=== PATIENT | female | born 1940 | race Caucasian/White ===

== ENCOUNTER 2018-09-22 04:34 | Inpatient (IN) | payer MEDICARE, OTHER ==
[~2018-09-22] VITALS: Ht 162.6 cm; Wt 71.7 kg
[2018-09-22] VITALS (51 sets, daily range): BP systolic 104–175; BP diastolic 60–98
[2018-09-22] MEDS ORDERED: DILTIAZEM HCL 25 MG/5 ML VIAL IV ONE ×2 (05:00→15:00)
[2018-09-22] MEDS ORDERED: ONDANSETRON HCL 4 MG/2 ML VIAL IV ONE (05:15)
[2018-09-22 06:16] LABS: Basophils # (auto) 0.1 uL; Eosinophils # (auto) 0 uL; Lymphocytes # (auto) 0.9 uL; Monocytes # (auto) 0.5 uL; Monocytes % (auto) 7.8 % (0.0-12.0); Neutrophils # (auto) 5.3 uL; Nucleated Red Blood Cells % 0.1 %; White Blood Cell 6.8 10^3/uL (4.4-10.8)
[2018-09-22 06:20] LABS: Basophils % (auto) 0.9 % (0.0-2.0); Eosinophils % (auto) 0.2 % (0.0-7.0); Hematocrit 23.3 % (36.0-46.0); Lymphocytes % (auto) 13.5 % (10.0-50.0); Mean Corpuscular Hemoglobin 17.4 pg (28.0-32.0); Mean Corpuscular Hgb Conc. 28.2 g/dL (32.0-36.0); Mean Corpuscular Volume 61.5 fL (80.0-100.0); Neutrophils % (auto) 77.6 % (37.0-80.0); Platelet Count (auto) 186 10^3/uL (140-450); Red Blood Cells 3.78 10^6/uL (4.0-5.20)
[2018-09-22 06:27] LABS: INR 1.23 (0.9-1.15); Partial Thromboplastin Time 27.8 sec (23.64-32.05)
[2018-09-22 06:29] LABS: Alanine Aminotransferase 23 U/L (13-56); Albumin 3.5 g/dL (3.4-5.0); Anion Gap 12 (5-15); Aspartate Aminotransferase 13 U/L (15-37); BUN/Creatinine Ratio 22.1; Blood Urea Nitrogen 19 mg/dL (7-18); Calcium 8.4 mg/dL (8.5-10.1); Carbon Dioxide 21 mmol/L (21-32); Chloride 112 mmol/L (98-107); GFR African American 83 mL/min; GFR Non-African American 68 mL/min; Glucose 94 mg/dL (74-106); Potassium 4.5 mmol/L (3.5-5.1); Sodium 145 mmol/L (136-145)
[2018-09-22 06:33] LABS: Alkaline Phosphatase 149 U/L (45-117); Bilirubin, Total 0.7 mg/dL (0.2-1.0); Red Cell Distribution Width 22.1 % (11.8-14.3)
[2018-09-22 06:37] LABS: Hemoglobin 6.6 g/dL (12.2-16.2)
[2018-09-22] MEDS ORDERED: METOPROLOL TARTRATE 1MG/1ML-5ML VIAL IV ONE (07:45)
[2018-09-22] MEDS ORDERED: NITROGLYCERIN 0.4 MG SL TAB SL PRN (08:45)
[2018-09-22] MEDS ORDERED: ACETAMINOPHEN 500 MG TAB PO PRN (08:45)
[2018-09-22] MEDS ORDERED: HYDROcodone-ACET 5/325MG TAB PO PRN (08:45)
[2018-09-22] MEDS ORDERED: MORPHINE SULFATE 4 MG/ML SYR/VIAL IV PRN (08:45)
[2018-09-22] MEDS ORDERED: MORPHINE SULF INJ 2 MG/ML SYRINGE 1ML IV PRN (08:45)
[2018-09-22] MEDS ORDERED: TEMAZEPAM 15 MG CAP PO PRN (08:45)
[2018-09-22] MEDS ORDERED: PROMETHAZINE HCL 25 MG/ML 1ML IV PRN (08:45)
[2018-09-22] MEDS: cefTRIAXone 1GM/50ML D5W 50 ML IV SCH (09:00)
[2018-09-22] MEDS: DILTIAZEM 125mg/125ml BAG KIT 125 ML IV SCH ×2 (09:14→20:32)
[2018-09-22 09:22] LABS: Amylase 33 U/L (25-115); Lipase 127 U/L (73-393)
[2018-09-22 09:25] LABS: Urine Bacteria FEW /hpf (None Seen); Urine Blood Negative /uL (Negative); Urine Specific Gravity 1.017 (1.001-1.035); Urine WBC 27 /hpf (0 - 5)
[2018-09-22] MEDS ORDERED: AMIODARONE HCL 150 MG in D5W 5% 100 ML IV ONE (10:15)
[2018-09-22] MEDS ORDERED: AMIODARONE HCL 900 MG in DEXTROSE 500 ML IV SCH ×2 (10:24→16:24)
--- NOTE | 2018-09-22 10:36 | NUR ---
REPORT: REPORT RECEIVED FROM TELEVISION REPAIRMAN TAKING CARE OF PT. AWARE THAT PATIENT WILL BE MOVING TO ROOM 101 IN ICU.
--- NOTE | 2018-09-22 10:52 | NUR ---
ARRIVAL: PT ARRIVED TO ROOM 101 IN ICU AFTER RECEIVING REPORT FROM ER. PATIENT ARRIVED ON GURNEY, MOVED TO ICU BED, CONNECTED TO BEDSIDE MONITOR, VITAL SIGNS TAKEN AND ALL BELONGINGS WITH PATIENT. PATIENT IS ALERT AND ORIENTED X4, OBEYS COMMANDS, ABLE TO VERBALIZE UNDERSTANDING FOR PLAN OF CARE BUT IS REFUSING SOME MEDICATIONS, NOT FOLLOWING ALL ORDERS FROM MD, DETAILED EDUCATION GIVEN TO PATIENT BUT AT TIME, PATIENT WANTING TO LEAVE HOSPITAL AND "NOT WANTING TO STAY BECAUSE I DON'T NEED TO." EXPLAINED TO PATIENT IMPORTANCE FOR HOSPITALIZATION AT TIME, GAVE DETAILED EDUCATION IN REGARDS TO PLAN OF CARE, ALL MEDICATIONS THAT MD PLACED AND DESPITE ALL EDUCATION GIVEN, PATIENT WILL CHOOSE WHICH INTERVENTIONS SHE WOULD LIKE TO BE GIVEN. AT TIME, PATIENT IS ON ROOM AIR WITH A 20G IV TO RIGHT AC RUNNING CARDIAZEM AT 10MG/HR AND 20G IV TO LEFT AC-SL. ALL MONITORS HOOKED UP TO PT FOR CONTINUOUS MONITORING AND VITAL SIGNS IN STABLE RANGE AT TIME. PATIENT BELONGINGS WITH PT, CALL LIGHT IN REACH AND ORIENTED TO ROOM.
--- NOTE | 2018-09-22 11:30 | NUR ---
PAIN/COMFORT: PT STATING THAT SHE HAS PAIN IN HER BACK AND THAT IT IS CHRONIC BACK PAIN. PROVIDED OPTION FOR MORPHINE BUT PATIENT REFUSING MORPHINE AT TIME. PATIENT HAVING EPISODES OF NAUSEA AND OFFERED PHENERGAN BUT PATIENT REFUSING AT TIME. STATING THAT HER BACK HURTS AND "I CAN'T LAY IN THIS BED ANY LONGER." WILL ATTEMPT TO CHANGE BEDS PER PT REQUEST.
--- NOTE | 2018-09-22 12:00 | NUR ---
UPDATE: PT REFUSING TO GO TO CT PREVIOUSLY ORDERED. PATIENT REFUSING TO HAVE BLOOD PRESSURE TAKEN AND YELLING IN PAIN FOR HER BACK. FULLY EXPLAINED THAT I CAN INFORM MD THAT SHE IS HAVING PAIN AND POTENTIAL ORDERS CAN BE CARRIED OUT BUT PT STILL REFUSING. AT TIME, PT DOES NOT WANT PAIN MEDICATION OR CT SCAN.
--- NOTE | 2018-09-22 13:20 | NUR ---
BED CHANGE: PT STATING THAT SHE IS HAVING PAIN WHILE IN BED. MOVED PT TO NEW ICU BED FOR COMFORT.
--- NOTE | 2018-09-22 13:40 | NUR ---
JAYY-CARE/ELIMINATION: PROVIDED JAYY-CARE AND FULL LINEN CHANGE. PATIENT INCONTINENT OF URINE AND VOIDED IN BED. EXPLAINED TO PT THAT BEDPAN OR ALLRED CATHETER IS AVAILABLE BUT REFUSING BOTH AT TIME.
--- NOTE | 2018-09-22 13:53 | NUR ---
PAGE: DR. CHAN PAGED. WANTING TO CONFIRM IF MD WOULD LIKE CARDIAZEM OR AMIODARONE GTT AT TIME. WAITING FOR CALL BACK.
--- NOTE | 2018-09-22 13:56 | NUR ---
MD CALL BACK: DR. CHAN CALLED BACK. UPDATED ON PT STATUS AND NEW ORDERS RECEIVED. MD WOULD NOT LIKE PT TO BE ON AMIODARONE GTT AND ONLY CARDIAZEM GTT WITH AMIODARONE PO. WILL PLACE AND CARRY OUT ORDERS.
[2018-09-22 14:00] LABS: Hematocrit 24.8 % (36.0-46.0)
[2018-09-22] MEDS: metroNIDAZOLE 500MG/100ML 100 ML IV SCH ×2 (14:00→22:00)
[2018-09-22 14:03] LABS: Hemoglobin 6.7 g/dL (12.2-16.2)
--- NOTE | 2018-09-22 14:06 | NUR ---
LAB: LAB CALLED. RESULT OF HGB 6.7. ORDERS PLACED FOR BLOOD TRANSFUSION ALREADY.
--- NOTE | 2018-09-22 14:11 | NUR ---
FAMILY: DAUGHTER IN AT BEDSIDE. UPDATED ON PT STATUS AND ALL QUESTIONS AND CONCERNS ADDRESSED.
--- NOTE | 2018-09-22 15:00 | NUR ---
JAYY-CARE/LINEN CHANGE: PT REQUESTING BEDPAN FOR URINATION. PROVIDED BEDPAN AFTER PATIENT STATING THAT SHE NEEDS TO USE THE RESTROOM. PATIENT NOT LIFTING UP LEGS PATIENT STATING, "IT HURTS TOO BAD". PATIENT REFUSING TO TURN IN BED. AFTER DETAILED EDUCATION ON IMPORTANCE FOR BEDPAN OR ALLRED CATHETER IF PATIENT REFUSING BEDPAN, PATIENT THEN ABLE TO LIFT UP SACRUM AND BEDPAN PLACED.
--- NOTE | 2018-09-22 15:09 | NUR ---
BLOOD TRANSFUSION: STARTED BLOOD TRANSFUSION PER MD ORDERS.
[2018-09-22] MEDS: FUROSEMIDE 40 MG/4 ML VIAL IV SCH (15:14)
[2018-09-22] MEDS: METOPROLOL TARTRATE 25 MG TAB PO SCH ×2 (15:14→22:00)
[2018-09-22] MEDS: POTASSIUM CHL 20 Meq TABLET PO SCH (15:15)
[2018-09-22] MEDS: PANTOPRAZOLE 40 MG TAB PO SCH ×2 (15:15→21:45)
--- NOTE | 2018-09-22 16:00 | NUR ---
ALLRED CATHETER: ALLRED CATHETER INSERTED, SIZE 16F AFTER 1ST ATTEMPT USING STERILE TECHNIQUE. PATIENT REFUSING TO USE BEDPAN AND OK TO INSERT ALLRED CATHETER AFTER DETAILED EDUCATION.
--- NOTE | 2018-09-22 17:15 | NUR ---
PAIN: PATIENT PREVIOUSLY MEDICATED WITH MORPHINE FOR PAIN BUT STILL STATING THAT SHE HAS BACK PAIN. INFORMED DR. RUSHING OF "SEVERE PAIN IN BACK" AND OK TO TAKE PT TO CT OF SPINE AND PELVIS IF PATIENT DOES NOT REFUSE.
--- NOTE | 2018-09-22 17:35 | NUR ---
EDUCATION: PT EDUCATED ON IMPORTANCE FOR PAIN MANAGEMENT, OK TO TAKE MORPHINE NEEDED FOR PAIN AND THAT MD OK TO TAKE PT TO CT SCAN FOR PAIN EVALUATION IN BACK. AFTER DETAILED EDUCATION FROM MYSELF AND DAUGHTER, PATIENT NOW REQUESTING TO GO TO CT SCAN.
--- NOTE | 2018-09-22 17:45 | NUR ---
MD CONTACT: SPOKE TO DR. RUSHING AND OK FOR PT TO GO TO CT SCAN FOR BACK AND LEFT LEG PAIN. PT AWARE AND WILL CARRY OUT ORDERS.
--- NOTE | 2018-09-22 18:00 | NUR ---
CT: PT TAKEN TO CT SCAN PER ORDERS.
--- NOTE | 2018-09-22 18:24 | NUR ---
RETURN: PT RETURNED FROM CT SCAN IN STABLE CONDITION. PT TOLERATED WELL AND ABLE TO TOLERATE PROCEDURE WITHOUT DIFFICULTY.
--- NOTE | 2018-09-22 18:49 | NUR ---
NUTRITION: PT SITTING UP IN BED, EATING CLEAR LIQUID DIET AND TOLERATING WELL. DAUGHTER IN AT BEDSIDE. CALL LIGHT IN REACH.
--- NOTE | 2018-09-22 19:15 | NUR ---
REPORT: REPORT GIVEN TO OUTCOMES MANAGER RN TO RESUME CARE OF PT.
--- NOTE | 2018-09-22 19:57 | NUR ---
ASKED RADIOLOGY TO HAVE RADIOLOGIST READ CTs THAT WERE TAKEN
--- NOTE | 2018-09-22 20:00 | NUR ---
OPENING NOTE: A&OX4. PATIENT IS APPREHENSIVE ABOUT MANY INTERVENTIONS, ESPECIALLY MEDICATIONS. SHE REPORTS THAT SHE HAS NUMEROUS ALLERGIES TO MEDICATIONS, ENVIRONMENT AND FOOD. SHE STATES THAT SHE WAS TESTED A WHILE AGO BUT DOES NOT HAVE ANY DOCUMENTATION. THE PATIENT DOES NOT HAVE A PRIMARY CARE PROVIDER ESTABLISHED. AFIB, HR 90s. SBP 110s. LS CTA, EVEN AND UNLABORED BREATHING ON RA. SpO2>95%. ABD SOFT. HYPOACTIVE BS. +FLATUS. LBM TODAY, NO BLOOD. DENIES NAUSEA OR VOMITING AT THIS TIME. THE PATIENT HAS VERY SPECIFIC DIETARY REQUESTS. ALLRED PATENT AND INTACT, DRAINING PALE YELLOW URINE. SKIN GROSSLY INTACT. 20 G PIV TO RIGHT AC/LEFT AC/ RIGHT HAND, CDI, PATENT WITH BLOOD RETURN. REINFORCED POC. MAINTAINED PATIENT SAFETY: BED LOCKED AND IN THE LOWEST POSITION, BED ALARM ON. ENCOURAGED PATIENT TO USE CALL LIGHT TO VERBALIZE NEEDS. PATIENT VERBALIZED UNDERSTANDING OF POC.
--- NOTE | 2018-09-22 21:09 | NUR ---
ASKED LAB TO DRAW PATIENT
[2018-09-22 21:36] LABS: Hemoglobin 7.4 g/dL (12.2-16.2)
[2018-09-22 21:42] LABS: Hematocrit 25.6 % (36.0-46.0)
[2018-09-22] MEDS: AMIODARONE HCL 200 MG TAB PO SCH (21:45)
--- NOTE | 2018-09-22 22:00 | NUR ---
HELD SCHEDULED LOPRESSOR, PATIENT RECEIVED DOSE ~ 6 HOURS AGO.
--- NOTE | 2018-09-22 22:00 | NUR ---
PATIENT REFUSED FLAGY IVPB
--- NOTE | 2018-09-22 22:00 | NUR ---
AMIODARONE: PATIENT APPREHENSIVE ABOUT TAKING AMIODARONE BECAUSE OF HER EXTENSIVE ALLERGIES. WHITE SHOE RAGGER EXPLAINED THAT A VERY SMALL POPULATION HAVE TRUE MEDICATION ALLERGIES, AND WHITE SHOE RAGGER WILL OBSERVE HER CLOSELY AND TAKE ACTIONS NECESSARY. PATIENT AGREEABLE TO TAKE AMIODARONE
--- NOTE | 2018-09-22 22:00 | NUR ---
DEFERRING TURNING AND REPOSITIONING AT THIS TIME: EDUCATED ON IMPORTANCE OF REPOSITIONING. PATIENT VERBALIZED UNDERSTANDING BUT DEFERRED TURNING. LABORATORY TECHNOLOGIST ENSURE MATTRESS IS INFLATED.
--- NOTE | 2018-09-22 22:57 | NUR ---
FAXED MEDICAL RECORD REQUEST FROM [facility]
--- NOTE | 2018-09-22 23:01 | NUR ---
NOTED TO DESAT DOWN TO 86% WHILE ASLEEP: WILL ATTEMPT TO PLACE O2 VIA NC
--- NOTE | 2018-09-22 23:15 | NUR ---
PATIENT AGREEABLE TO OXYGEN WHILE ASLEEP - PLACED ON 2L VIA NC - SpO2>95%
--- NOTE | 2018-09-22 23:45 | NUR ---
NO S/S OF ALLERGIC REACTION TO AMIODARONE NOTED AT THIS TIME, WILL CONT CARE
[2018-09-23] VITALS (34 sets, daily range): BP systolic 94–128; BP diastolic 49–84
--- NOTE | 2018-09-23 00:15 | NUR ---
CARDIZEM GTT STOPPED - HR 80s
--- NOTE | 2018-09-23 00:35 | NUR ---
DEFERRING REPOSITIONING AT THIS TIME
--- NOTE | 2018-09-23 02:16 | NUR ---
ROUNDED: SLEEPING. EVEN AND UNLABORED BREATHING
--- NOTE | 2018-09-23 03:14 | NUR ---
ROUNDED: PATIENT AWOKEN FOR LAB DRAWS. REMAINS A&OX4. PATIENT REPOSITIONED HERSELF IN THE BED. NO NEEDS. VSS. WILL CONT CARE
[2018-09-23 05:13] LABS: Basophils # (auto) 0.1 uL; Eosinophils # (auto) 0.1 uL; Eosinophils % (auto) 0.7 % (0.0-7.0); Hematocrit 24.1 % (36.0-46.0); Hemoglobin 7.2 g/dL (12.2-16.2); Lymphocytes # (auto) 1.4 uL; Lymphocytes % (auto) 17.8 % (10.0-50.0); Mean Corpuscular Hemoglobin 18.7 pg (28.0-32.0); Mean Corpuscular Hgb Conc. 29.9 g/dL (32.0-36.0); Mean Corpuscular Volume 62.4 fL (80.0-100.0); Monocytes # (auto) 0.8 uL; Monocytes % (auto) 9.8 % (0.0-12.0); Neutrophils # (auto) 5.4 uL; Neutrophils % (auto) 70.7 % (37.0-80.0); Nucleated Red Blood Cells % 0.1 %; Platelet Count (auto) 141 10^3/uL (140-450); Red Blood Cells 3.87 10^6/uL (4.0-5.20); White Blood Cell 7.7 10^3/uL (4.4-10.8)
[2018-09-23 05:26] LABS: Red Cell Distribution Width 24.4 % (11.8-14.3)
[2018-09-23 05:36] LABS: Anion Gap 12 (5-15); BUN/Creatinine Ratio 13.6; Blood Urea Nitrogen 11 mg/dL (7-18); Calcium 8.4 mg/dL (8.5-10.1); Carbon Dioxide 21 mmol/L (21-32); Chloride 110 mmol/L (98-107); GFR African American 88 mL/min; GFR Non-African American 73 mL/min; Glucose 58 mg/dL (74-106); Potassium 3.6 mmol/L (3.5-5.1); Sodium 143 mmol/L (136-145)
--- NOTE | 2018-09-23 05:53 | NUR ---
GLUCOSE IN BMP IS 58 - PATIENT STATES SHE IS ALLERGIC TO SUGAR AND IT MAKES HER BREAKOUT, SHE ALSO STATES SHE IS ALLERGIC TO DAIRY - PATIENT THEN SAID SHE WOULD TRY SOME REGULAR JELLO - WILL MONITOR PATIENT FOR S/S OF ALLERGIC REACTION
[2018-09-23] MEDS: metroNIDAZOLE 500MG/100ML 100 ML IV SCH ×2 (06:00→13:49)
--- NOTE | 2018-09-23 06:00 | NUR ---
CLOSING NOTE: REMAINS OFF OF CARDIZEM DRIP. REMAINS IN AFIB BUT RATE <100 BPM. NO NEEDS AT THIS TIME. WILL CONT CARE
--- NOTE | 2018-09-23 06:38 | NUR ---
NO S/S OF ALLERGIC REACTION NOTED AT THIS TIME
--- NOTE | 2018-09-23 07:22 | NUR ---
REPORT AND CARE ENDORSED TO ERMA SAAVEDRA
--- NOTE | 2018-09-23 07:25 | NUR ---
REPORT: REPORT RECEIVED FROM WATER SERVER RN TO RESUME CARE OF PT.
--- NOTE | 2018-09-23 07:37 | NUR ---
RADIOLOGY: CALLED RADIOLOGY DEPARTMENT AND REQUESTED CT SCAN FROM 09/22/18 BE READ.
--- NOTE | 2018-09-23 08:00 | NUR ---
OPEN: ASSESSMENT COMPLETE. SEE NURSING FLOW SHEET FOR UPDATE DETAILS. PT IS ALERT AND ORIENTED X4, OBEYS COMMANDS, VERBALIZING UNDERSTANDING FOR PLAN OF CARE AND FOLLOWS DIRECTIONS. PT DOES REFUSE SOME MEDICAL TREATMENTS SUCH ANTIBIOTICS PATIENT STATING, "IM ALLERGIC TO ALL ANTIBIOTICS EXCEPT FOR ANCEF. I HAVE NOT EVER HAD OTHER ANTIBIOTICS I DON'T THINK, BUT I DO HAVE AN ALLERGY." SHARED DETAILED EDUCATION ON STATUS AT TIME AND AFTER DETAILED EDUCATION, PATIENT STILL REFUSING ANTIBIOTICS TODAY. PATIENT IS ON ROOM AIR. ALLRED CATHETER IN PLACE DRAINING URINE TO GRAVITY. ABLE TO MOVE ALL EXTREMITIES WITHOUT DIFFICULTY OR DISCOMFORT. 20G IV TO LEFT AC-SL. 20G IV TO RIGHT AC-SL. 20G IV TO RIGHT HAND-SL. ALL MONITORS HOOKED UP TO PT FOR CONTINUOUS MONITORING. SHARED POC WITH PT AND ABLE TO VERBALIZE PARTIAL UNDERSTANDING THUS FAR.
--- NOTE | 2018-09-23 08:15 | NUR ---
FAMILY: FAMILY IN AT BEDSIDE. UPDATED ON PT STATUS AND AWARE OF CURRENT UPDATE.
[2018-09-23] MEDS: cefTRIAXone 1GM/50ML D5W 50 ML IV SCH (09:00)
[2018-09-23] MEDS ORDERED: DIGOXIN (250MCG/ML) 2 ML AMPULE IV ONE ×2 (10:00→12:00)
--- NOTE | 2018-09-23 10:03 | NUR ---
MD VISIT: DR. CHAN IN AT BEDSIDE WITH MENDEZ MALHOTRA. NEW ORDERS RECEIVED AND PLAN TO CARRY OUT.
[2018-09-23] MEDS: FUROSEMIDE 40 MG/4 ML VIAL IV SCH (11:00)
[2018-09-23] MEDS: AMIODARONE HCL 200 MG TAB PO SCH ×2 (11:00→22:34)
[2018-09-23] MEDS: PANTOPRAZOLE 40 MG TAB PO SCH ×2 (11:00→22:34)
[2018-09-23] MEDS: POTASSIUM CHL 20 Meq TABLET PO SCH (11:00)
[2018-09-23] MEDS: METOPROLOL TARTRATE 25 MG TAB PO SCH ×2 (11:00→22:34)
--- NOTE | 2018-09-23 11:57 | NUR ---
IV: IV REMOVED TO LEFT AC AND IV REMOVED TO RIGHT AC. AREA APPEARS TO BE REDDENED, PAINFUL AND SWOLLEN. PT TOLERATED WELL.
--- NOTE | 2018-09-23 12:25 | NUR ---
NUTRITION: PT SITTING UP IN BED, EATING LUNCH OWN AND TOLERATING WELL.
--- NOTE | 2018-09-23 12:51 | NUR ---
ROOM ASSIGNMENT: RECEIVED ROOM ASSIGNMENT FOR ROOM 273B WITH PEEWEE SAAVEDRA. PATIENT MADE AWARE THAT SHE WOULD BE TRANSFERRING AND VERBALIZED UNDERSTANDING.
--- NOTE | 2018-09-23 12:52 | NUR ---
FAMILY: CALLED DAUGHTER AND FULLY UPDATED ON PT STATUS. AWARE THAT PATIENT WILL BE MOVING TO ROOM 273B AND VERBALIZED UNDERSTANDING.
--- NOTE | 2018-09-23 13:05 | NUR ---
REPORT: REPORT CALLED AND GIVEN TO NOE SAAVEDRA TO RESUME CARE OF PT.
--- NOTE | 2018-09-23 13:30 | NUR ---
ACTIVITY: PT ASSISTED OUT OF BED TO WHEELCHAIR. PATIENT WEAK ON AMBULATION BUT OVERALL TOLERATED WALKING WITH ONLY STANDBY ASSIST REQUIRED. PATIENT AT TIME IS ALERT AND ORIENTED X4 AND AWARE OF TRANSFER TO ROOM 273B. PATIENT THEN ASSISTED TO WHEELCHAIR, ALL BELONGINGS TAKEN WITH PT AND PT MOVED TO ROOM 273B.
[2018-09-23] MEDS: DILTIAZEM HCL 60 MG TAB PO SCH ×2 (13:49→22:33)
--- NOTE | 2018-09-23 13:55 | NUR ---
TRANSFER: PT TRANSFERRED TO ROOM 273B VIA WHEELCHAIR. PT ASSISTED TO BED, ON PORTABLE ARCGIS DEVELOPER, ORIENTED TO ROOM, CALL LIGHT IN REACH AND PT IN STABLE CONDITION.
--- NOTE | 2018-09-23 14:00 | NUR ---
ASSUMED PATIENT CARE. PATIENT IN BED LOW LOCK POSITION, CALL LIGHT IN REACH. NO S/S OF DISTRESS.
[2018-09-23] MEDS ORDERED: MORPHINE SULFATE 4 MG/ML SYR/VIAL IV PRN (14:45)
--- NOTE | 2018-09-23 15:05 | NUR ---
PATIENT REFUSING CT ANGIO MD ALMENDAREZ MADE AWARE. NEW ORDERS FOR VQ SCAN. SEE ORDERS. WILL FOLLOW THROUGH WITH NEW ORDERS. WILL CONTINUE CARE.
--- NOTE | 2018-09-23 15:22 | NUR ---
PATIENT REFUSING VQ SCAN PATIENT STATES SHE IS UNABLE TO LAY FLAT FOR MORE THAN A COUPLE OF MINUTES FOR PROCEDURE. WILL CONTINUE CARE.
--- NOTE | 2018-09-23 19:15 | NUR ---
CLOSING NOTE ENDORSED CARE TO GEOTECHNICAL ENGINEER RN. PATIENT IN BED LOW LOCK POSITION, CALL LIGHT IN REACH. NO S/S OF DISTRESS.
--- NOTE | 2018-09-23 19:16 | NUR ---
Opening Shift Note Assumed care of patient, awake and alert. Instructed on POC and to call for assist PRN, will continue to monitor for changes Q1hr and PRN. Side rails up x2. Bed locked in lowest position. Call light within reach.
--- NOTE | 2018-09-23 23:45 | NUR ---
Moved patient to room 277B Patient requested to have a new bed and new room. Prior bed felt "too hard" per patient and patient neighbor complained to charge that she did not want lights or tv on. So patient was moved to new room to accommodate both complaints.
--- NOTE | 2018-09-24 01:13 | NUR ---
Chest pain Patient verbalized chest pain 6/10 on a pain scale. Vital signs within normal limits. Morphine available but patient refused medication. EKG done with no changes from baseline. EKG result placed in chart.
[2018-09-24 05:09] VITALS: BP 106/53
[2018-09-24] MEDS: DILTIAZEM HCL 60 MG TAB PO SCH (06:05)
[2018-09-24 07:08] LABS: Eosinophils # (auto) 0 uL; Eosinophils % (auto) 0.2 % (0.0-7.0)
[2018-09-24 07:10] LABS: Basophils # (auto) 0 uL; Basophils % (auto) 0.4 % (0.0-2.0); Hematocrit 29.5 % (36.0-46.0); Hemoglobin 8.7 g/dL (12.2-16.2); Lymphocytes # (auto) 0.4 uL; Lymphocytes % (auto) 3.7 % (10.0-50.0); Mean Corpuscular Hemoglobin 18.9 pg (28.0-32.0); Mean Corpuscular Hgb Conc. 29.5 g/dL (32.0-36.0); Mean Corpuscular Volume 64.1 fL (80.0-100.0); Monocytes # (auto) 0.9 uL; Monocytes % (auto) 7.6 % (0.0-12.0); Neutrophils # (auto) 10.2 uL; Neutrophils % (auto) 88.1 % (37.0-80.0); Platelet Count (auto) 182 10^3/uL (140-450); Red Blood Cells 4.61 10^6/uL (4.0-5.20); White Blood Cell 11.6 10^3/uL (4.4-10.8)
[2018-09-24 07:41] LABS: Calcium 8.8 mg/dL (8.5-10.1); Magnesium 1.9 mg/dL (1.6-2.6); Potassium 3.9 mmol/L (3.5-5.1)
[2018-09-24 07:43] LABS: BUN/Creatinine Ratio 10.9
--- NOTE | 2018-09-24 07:43 | NUR ---
Endorsed care to day shift RN.
[2018-09-24 08:30] VITALS: BP 108/51
[2018-09-24] MEDS ORDERED: cefTRIAXone 1GM/50ML D5W 50 ML IV SCH (09:00)
[2018-09-24] MEDS: PANTOPRAZOLE 40 MG TAB PO SCH (09:49)
[2018-09-24] MEDS: METOPROLOL TARTRATE 25 MG TAB PO SCH ×2 (09:49→10:00)
[2018-09-24] MEDS: AMIODARONE HCL 200 MG TAB PO SCH (09:49)
[2018-09-24] MEDS ORDERED: DIGOXIN 0.125 MG TAB PO SCH (10:00)
--- NOTE | 2018-09-24 12:18 | NUR ---
Nutrition consult/assessment Notes Please see attached link for complete assessment Est. Needs based on BW (71 kg): 5775-1467 kcal (23-25 kcal/kgBW), 71-78 gms pro (1.0-1.1 gms/kgBW). Will continue to monitor pertinent labs and reassess nutrient need prn Addendum: 09/24/18 at [address] Amended: Links added.
[2018-09-24 12:21] VITALS: BP 102/55
[2018-09-24] MEDS ORDERED: PANT40T PO (14:37)
[2018-09-24] MEDS ORDERED: DILT180C11 PO (14:37)
[2018-09-24] MEDS ORDERED: AMIO200T4 PO (14:37)
[2018-09-24] MEDS ORDERED: DIGO0.1238 PO (14:37)
--- NOTE | 2018-09-24 14:48 | NUR ---
HH per Carolin bruce RN, pt has no preference for HH. [facility] not available. I called [facility] and they have accepted pt and start of care will be Wednesday
[2018-09-24 15:08] VITALS: BP 108/51
--- NOTE | 2018-09-24 15:28 | NUR ---
Discharge instructions given as ordered. Encourage to follow up with PMD as instructed. All questions and concerns addressed. Patient verbalized understanding. Medication reconciliation form completed and copy given to patient.IV removed with catheter intact, pressure dressing applied, zuleta catheter removed. Telemetry unit returned to ICU. Patient taken to vehicle via wheelchair with all personal belongings, accompanied by staff and family member. No distress noted at time of departure.
[2018-09-26] MEDS ORDERED: AMIODARONE HCL 200 MG TAB PO SCH ×2 (10:00)
== END 2018-09-24 15:27 | disposition home health service (06) | DRG 811 ==
LOC: EDBD 04:34 → ER 04:34 → TELE 08:45 → ICU WEST 10:00 → WEST WING 09-23 13:53 → TELE-WESTW 09-23 15:38
PROVIDERS: ADMIT Internal Medicine; ATTEND Internal Medicine
PROC: 30233N1 Transfusion of Nonautologous Red Blood Cells into Peripheral Vein, Percutaneous Approach (ICD-10-PCS; principal; 2018-09-22)
DX: D64.9 Anemia, unspecified (principal); I50.33 Acute on chronic diastolic (congestive) heart failure; N39.0 Urinary tract infection, site not specified; I48.92 Unspecified atrial flutter; J98.11 Atelectasis; I48.91 Unspecified atrial fibrillation; M19.90 Unspecified osteoarthritis, unspecified site; M41.9 Scoliosis, unspecified; M85.80 Other specified disorders of bone density and structure, unspecified site; Z80.6 Family history of leukemia; Z87.81 Personal history of (healed) traumatic fracture; Z88.8 Allergy status to other drugs, medicaments and biological substances
CPT/HCPCS: 36415; 71045; 72128; 72131; 74176; 80048; 80053; 80061; 80162; 81001; 82150; 82378; 83690; 83735; 83880; 84443; 84484; 85014; 85018; 85025; 85045; 85379; 85610; 85730; 86850; 86900; 86901; 86920; 87081; 87086; 87088; 87186; 93005; 93306; 96374; 96375; 97163; G0378; J0696; J2405; J7060

== ENCOUNTER 2018-10-30 14:35 | Inpatient (IN) | payer MEDICARE, OTHER ==
[~2018-10-30] VITALS: Ht 157.5 cm; Wt 78.7 kg
[~2018-10-30 14:35] MED LIST: AMI200T PO; DIGO0.1229 PO; PANT40T PO; [UNRECOGNIZED DRUG - CODE] PO
[2018-10-30] MEDS ORDERED: ONDANSETRON HCL 4 MG/2 ML VIAL IV ONE ×2 (15:00→16:30)
[2018-10-30] MEDS ORDERED: MORPHINE SULFATE 4 MG/ML SYR/VIAL IV ONE (15:00)
[2018-10-30 15:25] LABS: Basophils # (auto) 0.1 uL; Eosinophils # (auto) 0 uL; Hemoglobin 8.6 g/dL (12.2-16.2); Lymphocytes # (auto) 0.6 uL; Neutrophils # (auto) 7.3 uL; Nucleated Red Blood Cells % 0.1 %
[2018-10-30 15:26] LABS: Basophils % (auto) 0.9 % (0.0-2.0); Lymphocytes % (auto) 6.7 % (10.0-50.0); Mean Corpuscular Hemoglobin 18.6 pg (28.0-32.0); Mean Corpuscular Hgb Conc. 28.6 g/dL (32.0-36.0); Monocytes # (auto) 0.4 uL; Monocytes % (auto) 4.8 % (0.0-12.0); Neutrophils % (auto) 87.6 % (37.0-80.0); Platelet Count (auto) 206 10^3/uL (140-450); Red Blood Cells 4.62 10^6/uL (4.0-5.20); White Blood Cell 8.3 10^3/uL (4.4-10.8)
[2018-10-30 15:31] LABS: Red Cell Distribution Width 25.5 % (11.8-14.3)
[2018-10-30 15:38] LABS: INR 1.34 (0.9-1.15)
[2018-10-30 15:41] LABS: Alanine Aminotransferase 42 U/L (13-56); Albumin 3.4 g/dL (3.4-5.0); Amylase 28 U/L (25-115); Anion Gap 9 (5-15); Aspartate Aminotransferase 22 U/L (15-37); BUN/Creatinine Ratio 15.9; Blood Urea Nitrogen 14 mg/dL (7-18); Calcium 8.6 mg/dL (8.5-10.1); Carbon Dioxide 20 mmol/L (21-32); Chloride 111 mmol/L (98-107); GFR African American 80 mL/min; GFR Non-African American 66 mL/min; Glucose 132 mg/dL (74-106); Lipase 77 U/L (73-393); Magnesium 2.2 mg/dL (1.6-2.6); Potassium 4.2 mmol/L (3.5-5.1); Sodium 140 mmol/L (136-145)
[2018-10-30 15:46] LABS: Alkaline Phosphatase 199 U/L (45-117); Bilirubin, Total 1.1 mg/dL (0.2-1.0); Total Protein 6.8 g/dL (6.4-8.2)
[2018-10-30] MEDS ORDERED: HYDROmorphone HCL 2 MG/ML VL IV ONE (16:30)
[2018-10-30] MEDS ORDERED: DILTIAZEM HCL 25 MG/5 ML VIAL IV ONE ×2 (18:00→20:15)
[2018-10-30] MEDS ORDERED: ONDANSETRON HCL 4 MG/2 ML VIAL ONE (18:06)
[2018-10-30] MEDS ORDERED: PROMETHAZINE HCL 25 MG/ML 1ML IV ONE (18:15)
[2018-10-30] MEDS ORDERED: AMIODARONE HCL 150 MG in D5W 5% 100 ML IV ONE (19:15)
[2018-10-30] MEDS ORDERED: AMIODARONE HCL 900 MG in DEXTROSE 500 ML IV SCH (19:24)
[2018-10-30] MEDS ORDERED: NITROGLYCERIN 0.4 MG SL TAB SL PRN (20:00)
[2018-10-30] MEDS ORDERED: METOPROLOL TARTRATE 1MG/1ML-5ML VIAL IV ONE (20:00)
[2018-10-30] MEDS ORDERED: PROMETHAZINE HCL 25 MG/ML 1ML IV PRN (20:00)
[2018-10-30] MEDS ORDERED: HYDROcodone-ACET 5/325MG TAB PO PRN (20:00)
[2018-10-30] MEDS ORDERED: MORPHINE SULF INJ 2 MG/ML SYRINGE 1ML IV PRN (20:00)
[2018-10-30] MEDS ORDERED: MORPHINE SULFATE 4 MG/ML SYR/VIAL IV PRN (20:00)
[2018-10-30] MEDS ORDERED: ACETAMINOPHEN 500 MG TAB PO PRN (20:00)
[2018-10-30] MEDS ORDERED: LACTULOSE 20Gm/30ML SOLN PO PRN (20:00)
[2018-10-30] MEDS ORDERED: TEMAZEPAM 15 MG CAP PO PRN (20:00)
[2018-10-30] MEDS: SODIUM CHLOR 0.9% PF (SALINE LOCK) 10ML VIAL/SYR IV SCH (22:09)
[2018-10-30] MEDS: PANTOPRAZOLE 40 MG TAB PO SCH (23:20)
[2018-10-30 23:25] VITALS: BP 139/91
--- NOTE | 2018-10-30 23:25 | NUR ---
INITIAL CONTACT ASSUMED CARE OF PATIENT PATIENT APPEARS TO BE RESTING IN BED COMFORTABLY IN SUPINE POSITION AT THIS TIME AAOX4, VITAL SIGNS WITHIN NORMAL LIMITS NO S/S OF DISTRESS, PATIENT DENIES PAIN. NOTED PATIENT RECEIVING 2L O2 VIA NASAL CANNULA, SATTING AT 97%. NOTED 20 G IV LEFT FOREARM, 20 G IV LEFT A/C PATENT, INTACT AND ASYMPTOMATIC. PATIENT APPEARS TO BE ANXIOUS/TALKATIVE/DEMANDING THAT THINGS BE DONE HER WAY. DIRECTING HOW SHE IS MOVED FROM THE RNEY TO HER ICU BED. PATIENT REFUSING TO CHANGE INTO THE HOSPITAL GOWN. PATIENT REFUSED TO TAKE OF HER SHOES WHILE IN BED. PATIENT WAS GIVEN TEACHING REGARDING HER PLAN OF CARE AT WHICH POINT PATIENT THREATENED TO LEAVE THE UNIT. PATIENT WAS TOLD THAT SHE HAS THE RIGHT TO REFUSE CARE. PATIENT WAS ADJUSTED IN BED FOR COMFORT. BED IN LOWEST LOCKED POSITION, SIDE RAILS UP TIMES TWO. PATIENT IS IN FULL VIEW OF NURSES STATION, SAFETY MAINTAINED, WILL CONTINUE TO MONITOR.
[2018-10-30 23:55] VITALS: BP 139/91
[2018-10-31] VITALS (83 sets, daily range): BP systolic 97–158; BP diastolic 44–119
--- NOTE | 2018-10-31 | NUR ---
FAMILY AT BEDSIDE DAUGHTER NARESH AT BEDSIDE
--- NOTE | 2018-10-31 01:00 | NUR ---
MARYA ROSARIO PAGED MARLENE PAGED FOR ORDERS PATIENT CONTINUE TO BE IN AFIB POST AMIODARONE BOLUS/DRIP STARTED IN THE ER. AMNIO DRIP TO BE DECREASED AT 0200, 6 HRS AFTER IT WAS STARTED.
[2018-10-31] MEDS: DILTIAZEM HCL 60 MG TAB GT SCH ×4 (01:11→17:21)
--- NOTE | 2018-10-31 01:12 | NUR ---
CALL RECEIVED FROM MARYA ANGEL ORDERS GIVEN
[2018-10-31] MEDS ORDERED: AMIODARONE HCL 900 MG in DEXTROSE 500 ML IV SCH (01:24)
--- NOTE | 2018-10-31 01:40 | NUR ---
ALLERGIC REACTION ZOSYN ADMINISTERED. NO ALLERGIC REACTION TO MEDICATION NOTED AT THIS TIME. PATIENT STATES "I FEEL FINE." SAFETY MAINTAINED, WILL CONTINUE TO MONITOR Addendum: 11/01/18 at 0658 by Beverly Saleh RN INCORRECT DATE. DATE SHOULD BE 11/01/18
[2018-10-31] MEDS ORDERED: AMIODARONE HCL (50 MG/ ML) 3 ML VIAL IV ONE (02:15)
[2018-10-31] MEDS ORDERED: AMIODARONE HCL 150 MG in D5W 5% 100 ML IV ONE (02:15)
--- NOTE | 2018-10-31 04:00 | NUR ---
PATIENT REFUSED CARE PATIENT REFUSED A BATH/BED CHANGE
[2018-10-31] MEDS: SODIUM CHLOR 0.9% PF (SALINE LOCK) 10ML VIAL/SYR IV SCH ×3 (06:00→22:00)
--- NOTE | 2018-10-31 08:00 | NUR ---
OPEN PATIENT RESTING IN BED WITH EYES OPEN STATING 96-100% FIO2. PATIENT ALERT AND ORIENTED X4. HEART RATE 110-130 ATRIAL FIBRILLATION. ALLRED FREE OF KINKS HANGING BELOW BLADDER. BED LOCKED IN LOWEST POSITION WITH 3X SIDE RAILS UP. CALL LIGHT PLACED WITHIN REACH AND PATIENT INSTRUCTED TO CALL FOR ASSISTANCE.
[2018-10-31] MEDS ORDERED: DIGOXIN (250MCG/ML) 2 ML AMPULE IV ONE ×2 (09:00→12:00)
[2018-10-31] MEDS: PANTOPRAZOLE 40 MG TAB PO SCH ×2 (09:52→22:35)
[2018-10-31] MEDS ORDERED: FUROSEMIDE 40 MG/4 ML VIAL IV SCH (10:00)
[2018-10-31] MEDS ORDERED: ENALAPRIL MALEATE 2.5 MG TAB PO SCH (10:00)
[2018-10-31 10:17] LABS: Hematocrit 28.5 % (36.0-46.0); Mean Corpuscular Hemoglobin 18.1 pg (28.0-32.0); Mean Corpuscular Hgb Conc. 27.9 g/dL (32.0-36.0); Mean Corpuscular Volume 64.8 fL (80.0-100.0); Platelet Count (auto) 186 10^3/uL (140-450); Red Blood Cells 4.41 10^6/uL (4.0-5.20)
--- NOTE | 2018-10-31 10:20 | NUR ---
MD CHAN AT BEDSIDE. SPEECH TEACHER ROCIO UPDATED ON PATIENT STATUS AT BEDSIDE. NEW ORDERS RECEIVED.
[2018-10-31 10:35] LABS: Alanine Aminotransferase 33 U/L (13-56); Albumin 2.9 g/dL (3.4-5.0); Anion Gap 10 (5-15); Aspartate Aminotransferase 13 U/L (15-37); BUN/Creatinine Ratio 14.3; Blood Urea Nitrogen 17 mg/dL (7-18); Calcium 8.5 mg/dL (8.5-10.1); Carbon Dioxide 21 mmol/L (21-32); Chloride 109 mmol/L (98-107); GFR African American 57 mL/min; GFR Non-African American 47 mL/min; Glucose 126 mg/dL (74-106); Potassium 4.5 mmol/L (3.5-5.1); Sodium 140 mmol/L (136-145)
[2018-10-31 10:36] LABS: Urine Bacteria FEW /hpf (None Seen); Urine Blood Negative /uL (Negative); Urine WBC 29 /hpf (0 - 5); Urine WBC Clumps PRESENT /hpf (None Seen)
[2018-10-31 10:38] LABS: Alkaline Phosphatase 148 U/L (45-117); Bilirubin, Total 1.6 mg/dL (0.2-1.0); Total Protein 6.1 g/dL (6.4-8.2)
--- NOTE | 2018-10-31 11:30 | NUR ---
FAMILY AT BEDSIDE DAUGHTER RICHARD IN UNIT, UPDATED OF PLAN OF CARE. ALL QUESTED ANSWER AT THIS TIME.
[2018-10-31 11:31] LABS: Red Cell Distribution Width 25.2 % (11.8-14.3)
[2018-10-31 11:33] LABS: Basophils % (manual) 0 (0.0-2.0); Blast Cells 0; Eosinophils % (manual) 0 (0-7); Lymphocytes % (manual) 0 (10.0-50.0); Metamyelocytes % 0; Myelocytes % 0; Promyelocytes % 0; Reactive Lymphocytes 0; White Blood Cell 34.3 10^3/uL (4.4-10.8)
[2018-10-31 11:41] LABS: Band Neutrophils % (manual) 5; Monocytes % (manual) 6 (0-12)
--- NOTE | 2018-10-31 12:30 | NUR ---
MD VAZQUEZ AT BEDSIDE. MD VAZQUEZ AT BEDSIDE UPDATED ON PATIENTS CURRENT PLAN OF CARE. UPDATED ON PATIENTS STATUS. NEW ORDERS RECEIVED.
[2018-10-31 12:38] LABS: Hemoglobin 8.2 g/dL (12.2-16.2); Mean Corpuscular Hemoglobin 18.2 pg (28.0-32.0)
[2018-10-31 12:42] LABS: Hematocrit 29.1 % (36.0-46.0); Mean Corpuscular Hgb Conc. 28.2 g/dL (32.0-36.0); Mean Corpuscular Volume 64.7 fL (80.0-100.0); Platelet Count (auto) 182 10^3/uL (140-450)
[2018-10-31] MEDS ORDERED: cefTRIAXone 1GM/50ML D5W 50 ML IV ONE (12:45)
--- NOTE | 2018-10-31 12:45 | NUR ---
LAYLA LENNON AT BEDSIDE UPDATED ON PATIENT STATUS, INFORMED ABOUT PATIENT ABDOMINAL DISCOMFORT.
[2018-10-31 12:59] LABS: Red Cell Distribution Width 25.2 % (11.8-14.3)
[2018-10-31 13:00] LABS: White Blood Cell 31.8 10^3/uL (4.4-10.8)
[2018-10-31 13:01] LABS: Basophils % (manual) 0 (0.0-2.0); Blast Cells 0; Eosinophils % (manual) 0 (0-7); Metamyelocytes % 0; Myelocytes % 0; Promyelocytes % 0; Reactive Lymphocytes 0
--- NOTE | 2018-10-31 13:03 | NUR ---
CRITICAL/ PAGED SECOND WBC ELEVATED AT 31.8 ON REPEAT LAB DRAW. BLOOD AND URINE CULTURES HAVE BEEN TAKEN. MD VAZQUEZ PAGELyudmila, AWAITING RESPONSE.
--- NOTE | 2018-10-31 13:05 | NUR ---
HIGH SCHOOL ENGLISH TEACHER AT [facility] H[employer] SCHOOL ENGLISH TEACHER WORKING WITH MD CHAN AT BEDSIDE. UPDATED ON PATIENT STATUS. NEW ORDERS RECIEVE Addendum: 10/31/18 at 1306 by Gabriela Murrieta RN TRESSA ABBASI AT 0900
[2018-10-31] MEDS ORDERED: VANCOMYCIN PER PHARMACY 0 MG IV SCH (13:30)
[2018-10-31 13:37] LABS: Band Neutrophils % (manual) 5; Lymphocytes % (manual) 2 (10.0-50.0); Monocytes % (manual) 6 (0-12)
[2018-10-31] MEDS ORDERED: VANCOMYCIN 500 MG in D5W 5% 100 ML IV SCH (15:00)
--- NOTE | 2018-10-31 15:00 | NUR ---
PT REFUSING CARE 1500 MD BARBOSA AT BEDSIDE INFORMING PATIENT ABOUT POSSIBILITY OF ENDOSCOPY AND COLONOSCOPY. PATIENT INFORMED BUT REFUSED CARE. 1515 RN AT BEDSIDE TO BEGIN INSERTION OF PERIPHERAL INTRAVENOUS TO START INTRAVENOUS ANTIBIOTICS. PATIENT REFUSED ALL ANTIBIOTIC THERAPY STATING "I DON'T WANT TO , I WILL ONLY TO TAKE ANCEF." NEW IV ACCESS AND ANTIBIOTICS HELD. PAGED. AWAITING RESPONSE.
[2018-10-31 15:11] LABS: % Iron Saturation 2.5 % (15-50)
[2018-10-31] MEDS ORDERED: AMIODARONE HCL 200 MG TAB ONE (16:52)
[2018-10-31] MEDS ORDERED: AMIODARONE HCL 200 MG TAB PO ONE (17:13)
[2018-10-31] MEDS ORDERED: RIVAROXABAN 20 MG TAB PO SCH (18:00)
--- NOTE | 2018-10-31 19:00 | NUR ---
CARE ENDORSED TO QUENTIN ROSARIO ALL QUESTIONS ANSWERED Addendum: 10/31/18 at 2205 by Beverly Saleh RN INCORRECT TIME CARE ENDORSED TO QUENTIN ROSARIO AT 0700 (10/31/18)
--- NOTE | 2018-10-31 19:15 | NUR ---
REPORT RECEIVED FROM QUENTIN ROSARIO
--- NOTE | 2018-10-31 19:30 | NUR ---
INITIAL CONTACT ASSUMED CARE OF PATIENT PATIENT APPEARS TO BE RESTING IN BED COMFORTABLY IN SUPINE POSITION AT THIS TIME AAOX4, VITAL SIGNS WITHIN NORMAL LIMITS NO S/S OF DISTRESS, PATIENT DENIES PAIN. NOTED PATIENT RECEIVING 2L O2 VIA NASAL CANNULA, SATTING AT 99%. NOTED 20 G IV LEFT FOREARM, 20 G IV LEFT A/C PATENT, INTACT AND ASYMPTOMATIC. NOTED ALLRED CATHETER IN PLACE AND DRAINING TO GRAVITY PATIENT WAS ADJUSTED IN BED FOR COMFORT. BED IN LOWEST LOCKED POSITION, SIDE RAILS UP TIMES TWO. PATIENT IS IN FULL VIEW OF NURSES STATION, SAFETY MAINTAINED, WILL CONTINUE TO MONITOR.
--- NOTE | 2018-10-31 22:00 | NUR ---
ROUNDING PATIENT WAS GIVEN A WARM BLANKET FOR COMFORT PATIENT REFUSED TO EAT ANYTHING STATING "I THINK I'LL WAIT UNTIL AFTER I HAVE A BOWEL MOVEMENT."
[2018-10-31] MEDS: PIPERACILLIN-TAZOB 3.375GM 100 ML IV SCH (22:34)
--- NOTE | 2018-10-31 22:34 | NUR ---
ALLERGY TO MEDICATION ZOSYN STARTED STAYING AT BEDSIDE FOR FIRST 20 MINUTES TO MONITOR PATIENT FOR ALLERGIC REACTION
[2018-10-31] MEDS: AMIODARONE HCL 200 MG TAB PO SCH (22:35)
--- NOTE | 2018-10-31 23:00 | NUR ---
ALLERGIC REACTION NO ALLERGIC REACTION SEEN AT THIS TIME PATIENT STATES "I FEEL FINE." SAFETY MAINTAINED, WILL CONTINUE TO MONITOR
--- NOTE | 2018-10-31 23:30 | NUR ---
ALLERGIC REACTION ASSESSING PATIENT FOR ALLERGIC REACTION TO ZOSYN. NO S/S OF DISTRESS OR ALLERGIC REACTION TO ZOSYN MEDICATION. WILL CONTINUE TO MONITOR.
[2018-11-01] VITALS (59 sets, daily range): BP systolic 103–146; BP diastolic 45–97
--- NOTE | 2018-11-01 03:29 | NUR ---
BEDSIDE COMMODE PLACED IN PATIENTS ROOM PATIENT ABLE TO GET OUT OF BED, STAND, AND TAKE A COUPLE OF STEPS WITH HELP FROM 2 NURSES PATIENT PLACED ON THE BEDSIDE COMMODE WILL CONTINUE TO MONITOR
--- NOTE | 2018-11-01 03:39 | NUR ---
ROUNDING PATIENT ON BEDSIDE COMMODE, PATIENT STATES NEEDS A FEW MORE MINUTES CALL LIGHT WITHIN REACH SAFETY MAINTAINED, WILL CONTINUE TO MONITOR
--- NOTE | 2018-11-01 04:00 | NUR ---
Patient bathe/linen change Patient given complete bath. Skin integrity assessed for any changes. Linens changed. Patient repositioned for comfort. Gown changed, opti-foam placed on patient sacrum. Patient helped from the bedside commode to the bed. Patient able to brush her teeth on her own. Patient able to stand with assistance. Patient able to get back in bed with assistance. Patient tolerated well
[2018-11-01 04:35] LABS: Hematocrit 25.1 % (36.0-46.0); Hemoglobin 7.3 g/dL (12.2-16.2); Mean Corpuscular Hemoglobin 18.7 pg (28.0-32.0); Mean Corpuscular Hgb Conc. 29.3 g/dL (32.0-36.0); Mean Corpuscular Volume 63.9 fL (80.0-100.0); Platelet Count (auto) 143 10^3/uL (140-450); Red Blood Cells 3.93 10^6/uL (4.0-5.20); White Blood Cell 21.3 10^3/uL (4.4-10.8)
--- NOTE | 2018-11-01 04:48 | NUR ---
ROUNDING PATIENT ON BEDSIDE COMMODE PATIENT STATES STILL NEEDS A FEW MORE MINUTES SAFETY MAINTAINED, CALL LIGHT WITHIN REACH, WILL CONTINUE TO MONITOR Addendum: 11/01/18 at 0516 by Beverly Saleh RN CORRECT TIME IS 033 Addendum: 11/01/18 at 0517 by Beverly Saleh RN CORRECT TIME IS 7317
[2018-11-01 04:49] LABS: Anion Gap 10 (5-15); Blood Urea Nitrogen 16 mg/dL (7-18); Calcium 8.1 mg/dL (8.5-10.1); Carbon Dioxide 23 mmol/L (21-32); Chloride 108 mmol/L (98-107); Glucose 83 mg/dL (74-106); Sodium 141 mmol/L (136-145)
[2018-11-01 04:51] LABS: BUN/Creatinine Ratio 16.2; GFR African American 70 mL/min; GFR Non-African American 58 mL/min; Red Cell Distribution Width 25.1 % (11.8-14.3)
[2018-11-01 04:53] LABS: Basophils % (manual) 0 (0.0-2.0); Blast Cells 0; Eosinophils % (manual) 0 (0-7); Metamyelocytes % 0; Myelocytes % 0; Promyelocytes % 0; Reactive Lymphocytes 0
[2018-11-01 05:35] LABS: Band Neutrophils % (manual) 1; Lymphocytes % (manual) 5 (10.0-50.0); Monocytes % (manual) 5 (0-12)
[2018-11-01] MEDS: PIPERACILLIN-TAZOB 3.375GM 100 ML IV SCH ×3 (05:47→22:04)
[2018-11-01] MEDS: DILTIAZEM HCL 60 MG TAB GT SCH ×2 (05:50→05:53)
[2018-11-01] MEDS: SODIUM CHLOR 0.9% PF (SALINE LOCK) 10ML VIAL/SYR IV SCH ×3 (05:53→22:04)
--- NOTE | 2018-11-01 07:25 | NUR ---
CARE ENDORSED TO QUENTIN SARABIA
--- NOTE | 2018-11-01 07:30 | NUR ---
ASSUMED CARE OF PATIENT AFTER RECEIVING REPORT FROM MINNA SAAVEDRA.
[2018-11-01] MEDS ORDERED: MORPHINE SULF INJ 2 MG/ML SYRINGE 1ML IV PRN (08:15)
--- NOTE | 2018-11-01 08:30 | NUR ---
PATIENT REFUSES AM DIET - STATES "I'M CONSTIPATED ET DON'T WANT TO ADD ANYMORE FOOD TO MY STOMACH".
[2018-11-01] MEDS ORDERED: cefTRIAXone 1GM/50ML D5W 50 ML IV SCH (09:00)
--- NOTE | 2018-11-01 09:00 | NUR ---
PATIENT'S DAUGHTER VISITS - UPDATED ON PATIENT'S CONDITION - VERBALIZED UNDERSTANDING.
[2018-11-01] MEDS ORDERED: LEVOTHYROXINE SODIUM 50 MCG TAB PO ONE (10:00)
[2018-11-01] MEDS: FUROSEMIDE 40 MG/4 ML VIAL IV SCH (10:49)
[2018-11-01] MEDS: DIGOXIN (250MCG/ML) 2 ML AMPULE IV SCH (10:49)
[2018-11-01] MEDS: PANTOPRAZOLE 40 MG TAB PO SCH ×2 (10:50→22:03)
[2018-11-01] MEDS: AMIODARONE HCL 200 MG TAB PO SCH ×2 (10:50→21:44)
[2018-11-01] MEDS: POTASSIUM CHLORIDE 8 MEQ TAB PO SCH (10:50)
[2018-11-01] MEDS ORDERED: SODIUM FERR GLUC 62.5MG/5ML 125 MG in SODIUM CHL 0.9% 100 ML IV ONE (11:30)
--- NOTE | 2018-11-01 11:43 | NUR ---
DR ART VISITS ET EXAMINES PATIENT - ORDERS RECEIVED.
--- NOTE | 2018-11-01 12:00 | NUR ---
DR BARBOSA VISITS ET EXAMINES PATIENT - ORDERS RECEIVED.
[2018-11-01] MEDS: DILTIAZEM HCL 60 MG TAB PO SCH ×2 (13:22→19:05)
--- NOTE | 2018-11-01 14:25 | NUR ---
CONSENTS FOR COLONOSCOPY, EGD, BLOOD TRANSFUSION ET MODERATE SEDATION SIGNED PER PATIENT ET WITNESSED PER TOOL TECHNICIAN.
--- NOTE | 2018-11-01 15:15 | NUR ---
REPORT CALLED TO MOOK SAAVEDRA. JAMIR SAAVEDRA NOTIFIED OF NEED FOR SPECIALTY BED R/T PATIENT'S SEVERE DJD OF SPINE AND HX OF PAIN USING MED-SURG BEDS
--- NOTE | 2018-11-01 16:25 | NUR ---
PATIENT TRANSPORTED TO ROOM 291B PER BED ON TELE MONITOR ET PORTABLE O2 @ 2L PER NC WITH BELONGINGS. CONDITION APPEARS STABLE FOR TRANSFER.
--- NOTE | 2018-11-01 16:30 | NUR ---
ICU patient trans to floor SBAR received. CHIKA ARAIZA transferred to [facility] via rney on portable Patient on continuous tele monitoring. All patient medications and personal belongings transferred with patient to receiving floor. Bed in low and locked position, rails up x2, no-slip socks on.
--- NOTE | 2018-11-01 16:50 | NUR ---
REIKI PRACTITIONER PHONED PATIENT'S DAUGHTER - LEFT MESSAGE ON HER CELLPHONE -INFORMED HER OF PATIENT'S TRANSFER TO ROOM 291B.
--- NOTE | 2018-11-01 20:02 | NUR ---
Opening Shift Note Assumed care of patient, awake and alert. No S/S of distress/SOB or pain. Instructed on POC and to call for assist PRN, will continue to monitor for changes Q1hr and PRN.Complained of nausea, medicated with Phenergan 12.5mg.i.v.p as needed.
[2018-11-02] VITALS (11 sets, daily range): BP systolic 108–128; BP diastolic 40–74
[2018-11-02] MEDS: DILTIAZEM HCL 60 MG TAB PO SCH ×4 (00:28→18:19)
[2018-11-02] MEDS: PIPERACILLIN-TAZOB 3.375GM 100 ML IV SCH ×3 (05:32→22:08)
[2018-11-02] MEDS: SODIUM CHLOR 0.9% PF (SALINE LOCK) 10ML VIAL/SYR IV SCH ×3 (05:33→22:08)
[2018-11-02 06:00] LABS: Mean Corpuscular Volume 63.8 fL (80.0-100.0)
[2018-11-02 06:03] LABS: Hematocrit 23.7 % (36.0-46.0); Mean Corpuscular Hemoglobin 18.8 pg (28.0-32.0); Mean Corpuscular Hgb Conc. 29.4 g/dL (32.0-36.0); Platelet Count (auto) 140 10^3/uL (140-450); Red Blood Cells 3.72 10^6/uL (4.0-5.20)
[2018-11-02 06:21] LABS: Anion Gap 10 (5-15); BUN/Creatinine Ratio 12.9; Blood Urea Nitrogen 13 mg/dL (7-18); Calcium 7.7 mg/dL (8.5-10.1); Carbon Dioxide 27 mmol/L (21-32); Chloride 106 mmol/L (98-107); GFR African American 69 mL/min; GFR Non-African American 57 mL/min; Glucose 77 mg/dL (74-106); Potassium 3.7 mmol/L (3.5-5.1); Sodium 143 mmol/L (136-145)
[2018-11-02 06:22] LABS: Red Cell Distribution Width 24.7 % (11.8-14.3)
[2018-11-02 06:25] LABS: Band Neutrophils % (manual) 0; Basophils % (manual) 0 (0.0-2.0); Blast Cells 0; Eosinophils % (manual) 0 (0-7); Metamyelocytes % 0; Myelocytes % 0; Promyelocytes % 0; Reactive Lymphocytes 0
--- NOTE | 2018-11-02 06:25 | NUR ---
Called/paged Dr. Cain Tucker. called re:hemoglobin result of 7.0. Waiting for call back. Continue care.
[2018-11-02 06:39] LABS: Lymphocytes % (manual) 3 (10.0-50.0); Monocytes % (manual) 4 (0-12)
--- NOTE | 2018-11-02 06:50 | NUR ---
returned call Yanet Judge returned call, updated on patient status and reason for call, orders received to repeat hemoglobin in 6 hours. Continue care.
--- NOTE | 2018-11-02 07:08 | NUR ---
Report given to Alec Edge, patient is resting no distress.
--- NOTE | 2018-11-02 07:30 | NUR ---
Opening Shift Note Assumed care of patient, awake and alert. No S/S of distress/SOB or pain. Instructed on POC and to call for assist PRN, will continue to monitor for changes Q1hr and PRN. Bed in low and locked position, rails up x2, no-slip socks on. SCD in place.
[2018-11-02] MEDS: PANTOPRAZOLE 40 MG TAB PO SCH ×2 (10:21→22:09)
[2018-11-02] MEDS: AMIODARONE HCL 200 MG TAB PO SCH ×2 (10:21→22:08)
[2018-11-02] MEDS: FUROSEMIDE 40 MG/4 ML VIAL IV SCH (10:21)
[2018-11-02] MEDS: POTASSIUM CHLORIDE 8 MEQ TAB PO SCH (10:21)
[2018-11-02] MEDS: DIGOXIN (250MCG/ML) 2 ML AMPULE IV SCH (10:21)
--- NOTE | 2018-11-02 10:55 | NUR ---
WOUND CONSULT ORDERED FOR AIR BED REQUEST D/T PATIENT'S "SEVERE SPINAL PAIN D/T SEVERE DJD DISC DISEASE. PATIENT'S LILIA SCORE IS 16. ADVISED BEDSIDE NURSE THAT AN AIR BED IS CONTRAINDICATED IN PATIENT'S WITH SPINE/DISC DISEASE. PATIENT STATES THAT SHE IS COMFORTABLE ON HER CURRENT BED. NO NEED FOR AIR BED, NO WOUND CARE NEEDED.
[2018-11-02] MEDS ORDERED: GOLYTELY 4L KIT PO ONE (12:00)
--- NOTE | 2018-11-02 12:05 | NUR ---
OLIVIA MATOS AT BEDSIDE CARDIAC CLEARANCE PROVIDED FOR SCHEDULED EGD AND COLONOSCOPY TOMORROW.
--- NOTE | 2018-11-02 13:35 | NUR ---
DR VAZQUEZ AT BEDSIDE NEW ORDERS ADDED FOR BLOOD TRANSFUSION, WILL CARRY OUT.
[2018-11-02] MEDS ORDERED: METOCLOPRAMIDE HCL 5MG/ml INJ 2ml VIAL IV PRN (13:45)
[2018-11-02 13:56] LABS: Lymphocytes # (auto) 0.4 uL; Lymphocytes % (auto) 2.6 % (10.0-50.0); Nucleated Red Blood Cells % 0.1 %
[2018-11-02 13:59] LABS: Basophils # (auto) 0 uL; Basophils % (auto) 0.2 % (0.0-2.0); Eosinophils # (auto) 0.1 uL; Eosinophils % (auto) 0.5 % (0.0-7.0); Hematocrit 28.1 % (36.0-46.0); Mean Corpuscular Hemoglobin 18.6 pg (28.0-32.0); Mean Corpuscular Hgb Conc. 28.6 g/dL (32.0-36.0); Mean Corpuscular Volume 64.9 fL (80.0-100.0); Monocytes % (auto) 6.3 % (0.0-12.0); Neutrophils # (auto) 14.3 uL; Neutrophils % (auto) 90.4 % (37.0-80.0); Platelet Count (auto) 156 10^3/uL (140-450); Red Blood Cells 4.32 10^6/uL (4.0-5.20); Red Cell Distribution Width 24.8 % (11.8-14.3); White Blood Cell 15.8 10^3/uL (4.4-10.8)
--- NOTE | 2018-11-02 15:00 | NUR ---
IV insertion IV access obtained, via clean sterile technique by inserting 22 gauge catheter at left forearm after 1 attempt. IV secured properly. No trauma to site. Patient tolerated well.
[2018-11-02] MEDS: SODIUM FERR GLUC 62.5MG/5ML 125 MG in SODIUM CHL 0.9% 100 ML IV SCH (18:30)
--- NOTE | 2018-11-02 19:24 | NUR ---
Opening Shift Note Assumed care of patient, awake and alert x 4. No S/S of distress/SOB or pain. Bed is in lowest position and locked. Call light within reach. Board updated. Mcgill catheter secured to thigh and collection bag hung below bladder and secured to non-moveable part of bedframe. Instructed on POC and to call for assist PRN, will continue to monitor for changes Q1hr and PRN.
--- NOTE | 2018-11-02 21:14 | NUR ---
Patient has only drunk approximately 1/4 of Go-Lytely. I have educated patient on the importance of completing Go-Lytely until stools are clear.
--- NOTE | 2018-11-02 23:12 | NUR ---
Encouraging patient to continue drinking Go-Lytely. Patient has consumed approximately 1/3 of medication and has had only one small, solid BM. Patient educated that she she must continue the medication until her bowel movements are clear. Patient acknowledged but is still only drinking sporadically.
[2018-11-03] MEDS: DILTIAZEM HCL 60 MG TAB PO SCH ×5 (00:26→23:45)
--- NOTE | 2018-11-03 01:25 | NUR ---
I have been encouraging the patient more and she is drinking the Go-Lyteley at a faster pace. No Clear BMs as of yet.
--- NOTE | 2018-11-03 03:20 | NUR ---
Patient states that she has become fed up with the Go-Lytely and is uspset that it has prevented her from getting a complete 9 hours of sleep. I educated the patient once again the she must take the Go-Lytely until her stools are clear.
--- NOTE | 2018-11-03 03:49 | NUR ---
Patient is refusing to drink anymore of the Go-Lytely. She states the medication keeps backing up into her throat and "I won't choke to like my brother did." I explained to the patient that indigestion may occur if you drink the Go-Lytely too fast but she said that she still does not want to drink any more. I educated the patient that her stools are still solid and will not be clear enough to likely perform the colonoscopy with MD Hernandez. She said that she understood but still does not want to drink any more right now. Patient is an alert and oriented adult female capable of making her own decisions. Addendum: 11/03/18 at 0359 by RADHA BERRIOS RN Patient has approximately 2/5 of the Go-Lytely remaining. Stool is solid and brown.
[2018-11-03] MEDS ORDERED: GOLYTELY 4L KIT PO ONE (04:00)
[2018-11-03 04:57] VITALS: BP 139/70
[2018-11-03] MEDS: SODIUM CHLOR 0.9% PF (SALINE LOCK) 10ML VIAL/SYR IV SCH ×3 (06:00→22:25)
[2018-11-03] MEDS: PIPERACILLIN-TAZOB 3.375GM 100 ML IV SCH (06:00)
--- NOTE | 2018-11-03 06:44 | NUR ---
Patient has had her fourth bowel movement but it is still solid and textured, not clear. Patient has only been convinced to take a few sips of the Go-Lytely before she puts it back down. Patient is fully aware that this may delay her Colonoscopy this morning.
--- NOTE | 2018-11-03 07:30 | NUR ---
Opening Shift Note Assumed care of patient, awake and alert. No S/S of distress/SOB or pain. Instructed on POC and to call for assist PRN, will continue to monitor for changes Q1hr and PRN. Bed in low and locked position, rails up x2, no-slip socks on. Patient up to bedside commode refusing colonoscopy and remainder of golytely.
--- NOTE | 2018-11-03 08:05 | NUR ---
PAGE TO DR BARBOSA TO UPDATE ON PATIENTS REFUSAL OF COLONOSCOPY AND FAILURE TO COMPLETE BOWEL PREP, PATIENT IS NPO AND OPEN TO COMPLETING THE EGD TODAY. AWAITING CALL BACK.
[2018-11-03 09:00] VITALS: BP 115/85
--- NOTE | 2018-11-03 09:01 | NUR ---
PATIENT OFF UNIT FOR PROCEDURE EGD
[2018-11-03] MEDS ORDERED: FLUMAZENIL 0.1 MG/ML INJ 10ML MDV IV ONE (09:07)
[2018-11-03] MEDS ORDERED: fentaNYL CITRATE 100 MCG/2 ML VL ONE (09:07)
[2018-11-03] MEDS ORDERED: SODIUM CHLORIDE LOCK 10 ML ONE (09:07)
[2018-11-03] MEDS ORDERED: diphenhdrAMINE HCL 50 MG/1 ML VL ONE (09:07)
[2018-11-03] MEDS ORDERED: MIDAZOLAM HCL 5 MG/ML-1ML VIAL ONE (09:07)
[2018-11-03] MEDS ORDERED: NALOXONE HCL 0.4 MG/ML VIAL ONE (09:07)
[2018-11-03] MEDS ORDERED: LIDOCAINE VISCOUS 2% 15ML UD ONE (09:07)
--- NOTE | 2018-11-03 10:00 | NUR ---
PATIENT BACK ON UNIT TOLERATED PROCEDURE WELL BP 118/62 HR 78 O2 100% ON 4 LPM, PATIENT IS ALERT AND INFORMED THAT SHE RECEIVED VISCOUS LIDOCAINE, INSTRUCTED NOT TO DRINK FOR AT LEAST ONE HOUR OR GET UP FROM BED WITHOUT ASSISTANCE. FAMILY AT BEDSIDE.
[2018-11-03 10:48] LABS: Basophils # (auto) 0 uL; Eosinophils # (auto) 0 uL; Eosinophils % (auto) 0.3 % (0.0-7.0); Lymphocytes # (auto) 0.5 uL; Mean Corpuscular Hemoglobin 20.6 pg (28.0-32.0); Monocytes # (auto) 0.8 uL; Nucleated Red Blood Cells % 0.1 %; White Blood Cell 9.8 10^3/uL (4.4-10.8)
[2018-11-03 10:50] LABS: Basophils % (auto) 0.3 % (0.0-2.0); Hematocrit 28.6 % (36.0-46.0); Hemoglobin 8.5 g/dL (12.2-16.2); Mean Corpuscular Hgb Conc. 29.7 g/dL (32.0-36.0); Mean Corpuscular Volume 69.3 fL (80.0-100.0); Monocytes % (auto) 8.6 % (0.0-12.0); Neutrophils # (auto) 8.4 uL; Neutrophils % (auto) 85.8 % (37.0-80.0); Platelet Count (auto) 139 10^3/uL (140-450); Red Blood Cells 4.14 10^6/uL (4.0-5.20)
[2018-11-03 10:53] LABS: Red Cell Distribution Width 28.8 % (11.8-14.3)
[2018-11-03 11:04] LABS: Anion Gap 9 (5-15); Blood Urea Nitrogen 9 mg/dL (7-18); Calcium 8.4 mg/dL (8.5-10.1); Carbon Dioxide 27 mmol/L (21-32); Chloride 105 mmol/L (98-107); GFR African American 87 mL/min; GFR Non-African American 72 mL/min; Glucose 85 mg/dL (74-106); Potassium 3.2 mmol/L (3.5-5.1); Sodium 141 mmol/L (136-145)
[2018-11-03] MEDS: POTASSIUM CHLORIDE 8 MEQ TAB PO SCH (11:06)
[2018-11-03] MEDS: AMIODARONE HCL 200 MG TAB PO SCH ×2 (11:06→22:25)
[2018-11-03] MEDS: PANTOPRAZOLE 40 MG TAB PO SCH ×2 (11:06→22:25)
[2018-11-03] MEDS: FUROSEMIDE 40 MG/4 ML VIAL IV SCH (11:07)
[2018-11-03] MEDS: DIGOXIN (250MCG/ML) 2 ML AMPULE IV SCH (11:07)
[2018-11-03] MEDS ORDERED: POTASSIUM CHL 20 Meq TABLET PO ONE (11:45)
--- NOTE | 2018-11-03 11:52 | NUR ---
DR VAZQUEZ AT BEDSIDE
[2018-11-03] MEDS: SODIUM FERR GLUC 62.5MG/5ML 125 MG in SODIUM CHL 0.9% 100 ML IV SCH (12:30)
[2018-11-03 13:00] VITALS: BP 138/62
--- NOTE | 2018-11-03 13:35 | NUR ---
NUTRITION ASSESSMENT NOTES Please refer to link notes of nutrition screen form filed under the intervention section of the plan of care for further details. Est. Needs: 1400 kcal to 1800 kcal (18-23 kcal/kgBW), 63 gms to 79 gms pro (0.8-1.0 gms/kgBW). Will continue to monitor pertinent labs and reassess nutrient need prn Thank you. Addendum: 11/03/18 at [address] Amended: Links added.
--- NOTE | 2018-11-03 14:20 | NUR ---
Zuleta catheter dc'd Order to discontinue zuleta catheter. Zuleta dc'd with clean technique following deflation of balloon. Patient tolerated well with no complaints of pain. Continue care.
--- NOTE | 2018-11-03 16:30 | NUR ---
POST ALLRED REMOVAL VOID PATIENT UP TO BEDSIDE COMMODE, VOIDED APPROX 300ML.
[2018-11-03 17:16] VITALS: BP 126/87
--- NOTE | 2018-11-03 19:21 | NUR ---
Opening Shift Note Assumed care of patient, awake and alert x 4. No S/S of distress/SOB or pain. Bed is in lowest position and locked. Call light within reach. Board updated. Tele box number matches monitor and leads are in correct placement. Bedside commode available. Instructed on POC and to call for assist PRN, will continue to monitor for changes Q1hr and PRN.
[2018-11-03 22:00] VITALS: BP 128/72
[2018-11-03] MEDS: NITROFURANTOIN (MONO) 100 mg CAP PO SCH (22:25)
[2018-11-04 05:00] VITALS: BP 136/56
[2018-11-04] MEDS: SODIUM CHLOR 0.9% PF (SALINE LOCK) 10ML VIAL/SYR IV SCH ×2 (06:24→13:48)
[2018-11-04] MEDS: DILTIAZEM HCL 60 MG TAB PO SCH ×3 (06:25→17:27)
[2018-11-04 07:28] LABS: Basophils # (auto) 0 uL; Neutrophils # (auto) 5.3 uL; Nucleated Red Blood Cells % 0.1 %; White Blood Cell 6.7 10^3/uL (4.4-10.8)
[2018-11-04 07:30] LABS: Basophils % (auto) 0.7 % (0.0-2.0); Eosinophils # (auto) 0 uL; Eosinophils % (auto) 0.6 % (0.0-7.0); Hematocrit 29.7 % (36.0-46.0); Hemoglobin 8.8 g/dL (12.2-16.2); Lymphocytes # (auto) 0.7 uL; Lymphocytes % (auto) 9.8 % (10.0-50.0); Mean Corpuscular Hemoglobin 20.4 pg (28.0-32.0); Mean Corpuscular Hgb Conc. 29.8 g/dL (32.0-36.0); Mean Corpuscular Volume 68.3 fL (80.0-100.0); Monocytes # (auto) 0.7 uL; Monocytes % (auto) 10.2 % (0.0-12.0); Neutrophils % (auto) 78.7 % (37.0-80.0); Platelet Count (auto) 151 10^3/uL (140-450); Red Blood Cells 4.35 10^6/uL (4.0-5.20); Red Cell Distribution Width 29.3 % (11.8-14.3)
[2018-11-04 07:46] LABS: Calcium 8.8 mg/dL (8.5-10.1); Potassium 3.7 mmol/L (3.5-5.1)
[2018-11-04 07:48] LABS: BUN/Creatinine Ratio 11.4
--- NOTE | 2018-11-04 08:30 | NUR ---
Opening Shift Note Assumed care of patient, awake and alert. No S/S of distress/SOB or pain. Instructed on POC and to call for assist PRN, will continue to monitor for changes Q1hr and PRN.
[2018-11-04] MEDS: PANTOPRAZOLE 40 MG TAB PO SCH (09:17)
[2018-11-04] MEDS: AMIODARONE HCL 200 MG TAB PO SCH (09:17)
[2018-11-04] MEDS: POTASSIUM CHLORIDE 8 MEQ TAB PO SCH (09:17)
[2018-11-04] MEDS: NITROFURANTOIN (MONO) 100 mg CAP PO SCH (09:17)
[2018-11-04] MEDS ORDERED: FUROSEMIDE 40 MG TAB PO SCH (10:00)
[2018-11-04 10:08] VITALS: BP 144/74
--- NOTE | 2018-11-04 10:57 | NUR ---
assessment Per consult DC planning. Patient will return home on discharge and she will need a resumption of care for [facility]. Addendum: 11/04/18 at 1659 by Bobbi Saleh Amended: Links added.
--- NOTE | 2018-11-04 11:10 | NUR ---
SS (Bobbi and Evelyn ) paged regarding family would like to talk with SS and patient has d/c order with HH.
--- NOTE | 2018-11-04 11:20 | NUR ---
Dr. Ramos at bedside.
--- NOTE | 2018-11-04 11:29 | NUR ---
Oxygen room air 91-92 % , no respiratory distress noted.
[2018-11-04] MEDS: SODIUM FERR GLUC 62.5MG/5ML 125 MG in SODIUM CHL 0.9% 100 ML IV SCH (12:13)
[2018-11-04 14:33] VITALS: BP 137/75
--- NOTE | 2018-11-04 16:18 | NUR ---
Received a call from Evelyn (SANDRA) regarding HH already set up with [facility]. Patient notified.
--- NOTE | 2018-11-04 16:19 | NUR ---
Per consult for Home Health Physical Therapy. Contacted [place] Ph: ( [phone]) Fax: ) Faxed medical records. Per Felicia from [facility] to resume service within 48hrs upon d/c. Informed QUENTIN Fajardo Addendum: 11/04/18 at 1621 by MARCELINO COELHO Amended: Links added.
[2018-11-04 16:26] VITALS: BP 137/75
--- NOTE | 2018-11-04 16:42 | NUR ---
[facility] sent prior d/c.
--- NOTE | 2018-11-04 18:10 | NUR ---
Discharge instructions given as ordered. Encourage to follow up with PMD (Follow up with Dr. Edgar in 11/15 Address : [address], [place], [address] #[phone] Ext : [phone], Follow up with Dr. Hernandez () in 2 weeks Address : [address], [place], [address] #[phone] Ext : [phone] Follow up with [facility] Ph: )) as instructed. All questions and concerns addressed. Patient verbalized understanding. Medication reconciliation form completed and copy given to patient. IV removed with catheter intact, pressure dressing applied. Telemetry unit returned to [facility]. Patient taken to vehicle via wheelchair with all personal belongings, accompanied by staff and family member. No distress noted at time of departure.
== END 2018-11-04 18:34 | disposition home health service (06) | DRG 871 ==
LOC: ER 14:35 → EDBD 14:35 → TELE 14:36 → ICU WEST 23:20 → TELE-WESTW 11-01 16:43
PROVIDERS: ADMIT Internal Medicine; ATTEND Internal Medicine
PROC: 30233N1 Transfusion of Nonautologous Red Blood Cells into Peripheral Vein, Percutaneous Approach (ICD-10-PCS; 2018-11-02)
PROC: 0DJ08ZZ Inspection of Upper Intestinal Tract, Via Natural or Artificial Opening Endoscopic (ICD-10-PCS; principal; 2018-11-03 09:21)
DX: A41.9 Sepsis, unspecified organism (principal); I50.33 Acute on chronic diastolic (congestive) heart failure; N39.0 Urinary tract infection, site not specified; R18.8 Other ascites; I48.91 Unspecified atrial fibrillation; D64.9 Anemia, unspecified; K59.00 Constipation, unspecified; I50.9 Heart failure, unspecified; N20.0 Calculus of kidney; K44.9 Diaphragmatic hernia without obstruction or gangrene; E66.9 Obesity, unspecified; I70.0 Atherosclerosis of aorta; D50.9 Iron deficiency anemia, unspecified; I11.0 Hypertensive heart disease with heart failure; M19.90 Unspecified osteoarthritis, unspecified site; G89.29 Other chronic pain; Z68.31 Body mass index [BMI] 31.0-31.9, adult; Z79.899 Other long term (current) drug therapy; Z80.6 Family history of leukemia; Z87.442 Personal history of urinary calculi; Z91.19 Patient's noncompliance with other medical treatment and regimen; Z91.013 Allergy to seafood; Z88.1 Allergy status to other antibiotic agents; Z88.8 Allergy status to other drugs, medicaments and biological substances; Z91.14 Patient's other noncompliance with medication regimen
CPT/HCPCS: 36415; 43235; 71045; 74176; 76705; 80048; 80053; 80202; 81001; 82150; 82270; 82378; 82550; 83540; 83550; 83605; 83690; 83735; 83880; 84443; 84484; 85007; 85025; 85027; 85379; 85610; 85730; 86850; 86900; 86901; 86920; 87040; 87081; 87086; 93005; 96365; 96366; 96375; 96376; 99291; G0378; J0696; J2250; J2405; J2543; J7060

== ENCOUNTER → 2018-11-23 | Outpatient (CLI) | payer MEDICARE, OTHER ==
[~2018-11-23] MED LIST changes: -AMI200T PO; +AMIO200T4 PO; -DIGO0.1229 PO; +DIGO0.1238 PO; +DILT180C11 PO; -[UNRECOGNIZED DRUG - CODE] PO
[2018-11-23 15:50] LABS: Basophils # (auto) 0.1 uL; Basophils % (auto) 0.9 % (0.0-2.0); Eosinophils # (auto) 0 uL; Eosinophils % (auto) 0.1 % (0.0-7.0); Hematocrit 39.2 % (36.0-46.0); Hemoglobin 12.3 g/dL (12.2-16.2); Lymphocytes # (auto) 0.5 uL; Lymphocytes % (auto) 7.5 % (10.0-50.0); Mean Corpuscular Hemoglobin 24.8 pg (28.0-32.0); Mean Corpuscular Hgb Conc. 31.3 g/dL (32.0-36.0); Mean Corpuscular Volume 79.2 fL (80.0-100.0); Monocytes # (auto) 0.4 uL; Monocytes % (auto) 6.9 % (0.0-12.0); Neutrophils # (auto) 5.4 uL; Neutrophils % (auto) 84.6 % (37.0-80.0); Platelet Count (auto) 103 10^3/uL (140-450); Red Blood Cells 4.95 10^6/uL (4.0-5.20); Red Cell Distribution Width 35.9 % (11.8-14.3); White Blood Cell 6.4 10^3/uL (4.4-10.8)
== END | disposition home or self-care (01) ==
LOC: LAB 15:26
PROVIDERS: ATTEND Internal Medicine
DX: I10 Essential (primary) hypertension (principal)
CPT/HCPCS: 36415; 85025

== ENCOUNTER → 2019-06-19 | Outpatient (CLI) | payer MEDICARE, OTHER ==
[2019-06-19 15:16] LABS: Basophils # (auto) 0 uL; Basophils % (auto) 0.7 % (0.0-2.0); Eosinophils # (auto) 0 uL; Eosinophils % (auto) 0.3 % (0.0-7.0); Hematocrit 44.2 % (36.0-46.0); Hemoglobin 14.7 g/dL (12.2-16.2); Lymphocytes # (auto) 1.2 uL; Mean Corpuscular Hemoglobin 30.2 pg (28.0-32.0); Mean Corpuscular Hgb Conc. 33.2 g/dL (32.0-36.0); Monocytes # (auto) 0.6 uL; Monocytes % (auto) 9.3 % (0.0-12.0); Neutrophils # (auto) 4.7 uL; Neutrophils % (auto) 71.7 % (37.0-80.0); Nucleated Red Blood Cells % 0.1 %; Platelet Count (auto) 102 10^3/uL (140-450); Red Blood Cells 4.86 10^6/uL (4.0-5.20); Red Cell Distribution Width 14.1 % (11.8-14.3); White Blood Cell 6.6 10^3/uL (4.4-10.8)
[2019-06-19 15:33] LABS: Albumin 3.9 g/dL (3.4-5.0); Potassium 4.2 mmol/L (3.5-5.1)
[2019-06-19 15:37] LABS: BUN/Creatinine Ratio 18.8; Bilirubin, Total 0.7 mg/dL (0.2-1.0); Total Protein 7.8 g/dL (6.4-8.2)
[2019-06-19 15:39] LABS: T3 Total 0.71 ng/mL (0.60-1.81)
[2019-06-19 15:46] LABS: Urine Bacteria FEW /hpf (None Seen); Urine Blood 1+ /uL (Negative); Urine Hyaline Cast FEW /lpf (0 - 2); Urine WBC 37 /hpf (0 - 5)
== END | disposition home or self-care (01) ==
LOC: LAB 13:58
PROVIDERS: ATTEND Internal Medicine
DX: I48.91 Unspecified atrial fibrillation (principal); I10 Essential (primary) hypertension; E78.5 Hyperlipidemia, unspecified; D49.9 Neoplasm of unspecified behavior of unspecified site; Z86.2 Personal history of diseases of the blood and blood-forming organs and certain disorders involving the immune mechanism; Z85.3 Personal history of malignant neoplasm of breast; Z79.899 Other long term (current) drug therapy
CPT/HCPCS: 36415; 80053; 80061; 81001; 82306; 82607; 83036; 84443; 84480; 85025; 86300

== ENCOUNTER → 2019-12-06 | Outpatient (CLI) | payer MEDICARE, OTHER ==
[~2019-12-06] MED LIST changes: +LEVO50TA7 PO
[2019-12-06 12:13] LABS: Basophils # (auto) 0 10 ^3/uL (0-0.2); Basophils % (auto) 0.4 % (0.0-2.0); Eosinophils # (auto) 0 10 ^3/uL (0-0.8); Eosinophils % (auto) 0.4 % (0.0-7.0); Hematocrit 46.8 % (36.0-46.0); Hemoglobin 15.6 g/dL (12.2-16.2); Lymphocytes # (auto) 1.4 10 ^3/uL (0.4-5.4); Lymphocytes % (auto) 17.8 % (10.0-50.0); Mean Corpuscular Hemoglobin 30.3 pg (28.0-32.0); Mean Corpuscular Hgb Conc. 33.4 g/dL (32.0-36.0); Mean Corpuscular Volume 90.6 fL (80.0-100.0); Monocytes # (auto) 0.7 10 ^3/uL (0-1.3); Monocytes % (auto) 9.2 % (0.0-12.0); Neutrophils # (auto) 5.6 10 ^3/uL (1.6-8.6); Neutrophils % (auto) 72.2 % (37.0-80.0); Nucleated Red Blood Cells % 0.2 %; Platelet Count (auto) 102 10^3/uL (140-450); Red Blood Cells 5.17 10^6/uL (4.0-5.20); Red Cell Distribution Width 15.6 % (11.8-14.3); White Blood Cell 7.8 10^3/uL (4.4-10.8)
[2019-12-06 12:38] LABS: Albumin 4.4 g/dL (3.4-5.0); Calcium 10.8 mg/dL (8.5-10.1); Potassium 4.4 mmol/L (3.5-5.1)
[2019-12-06 12:44] LABS: BUN/Creatinine Ratio 15.9; Pre Albumin 16.8 mg/dL (20.0-40.0); Total Protein 8.1 g/dL (6.4-8.2)
== END | disposition home or self-care (01) ==
LOC: LAB 12:05
PROVIDERS: ATTEND Internal Medicine
DX: I10 Essential (primary) hypertension (principal); E55.9 Vitamin D deficiency, unspecified; E03.9 Hypothyroidism, unspecified; Z86.2 Personal history of diseases of the blood and blood-forming organs and certain disorders involving the immune mechanism
CPT/HCPCS: 36415; 80053; 82040; 85025

== ENCOUNTER 2020-01-04 07:59 | Inpatient (IN) | payer MEDICARE, OTHER ==
[~2020-01-04] VITALS: Ht 165.1 cm; Wt 72.6 kg
[~2020-01-04 07:59] MED LIST changes: -LEVO50TA7 PO
[2020-01-04] MEDS ORDERED: SODIUM CHLORIDE 0.9% 1,000 ML IV ONE ×2 (08:03→12:45)
[2020-01-04] MEDS ORDERED: LORazepam 2MG/ML-1ML VIAL IV ONE (08:15)
[2020-01-04] MEDS ORDERED: ONDANSETRON HCL 4 MG/2 ML VIAL IV ONE (08:15)
[2020-01-04] MEDS ORDERED: METOPROLOL TARTRATE 1MG/1ML-5ML VIAL IV ONE (08:30)
[2020-01-04 08:35] LABS: Basophils # (auto) 0 10 ^3/uL (0-0.2); Basophils % (auto) 0.4 % (0.0-2.0); Eosinophils # (auto) 0 10 ^3/uL (0-0.8); Eosinophils % (auto) 0.1 % (0.0-7.0); Hematocrit 43.7 % (36.0-46.0); Hemoglobin 14.8 g/dL (12.2-16.2); Lymphocytes # (auto) 0.9 10 ^3/uL (0.4-5.4); Lymphocytes % (auto) 11.1 % (10.0-50.0); Mean Corpuscular Hemoglobin 31.3 pg (28.0-32.0); Monocytes # (auto) 0.5 10 ^3/uL (0-1.3); Monocytes % (auto) 5.8 % (0.0-12.0); Neutrophils % (auto) 82.6 % (37.0-80.0); Nucleated Red Blood Cells % 0.1 %; Platelet Count (auto) 91 10^3/uL (140-450); Red Blood Cells 4.75 10^6/uL (4.0-5.20); Red Cell Distribution Width 15.2 % (11.8-14.3); White Blood Cell 8.5 10^3/uL (4.4-10.8)
[2020-01-04 08:50] LABS: Albumin 4.1 g/dL (3.4-5.0); Anion Gap 10 (5-15); Blood Urea Nitrogen 11 mg/dL (7-18); Carbon Dioxide 21 mmol/L (21-32); Chloride 105 mmol/L (98-107); Glucose 131 mg/dL (74-106); Potassium 3.2 mmol/L (3.5-5.1); Sodium 136 mmol/L (136-145)
[2020-01-04 08:51] LABS: INR 1.13 (0.9-1.15); Partial Thromboplastin Time 26.5 sec (23.0-31.2)
[2020-01-04 08:58] LABS: Alanine Aminotransferase 22 U/L (13-56); Alkaline Phosphatase 98 U/L (45-117); Aspartate Aminotransferase 24 U/L (15-37); BUN/Creatinine Ratio 12.9; GFR African American 83 mL/min; GFR Non-African American 69 mL/min; Total Protein 7.6 g/dL (6.4-8.2)
[2020-01-04] MEDS ORDERED: POTASSIUM EFFERVESENT TAB 25 MEQ PO ONE ×2 (11:15→12:30)
[2020-01-04] MEDS ORDERED: ONDANSETRON HCL 4 MG/2 ML VIAL IV PRN (12:30)
[2020-01-04] MEDS ORDERED: TEMAZEPAM 15 MG CAP PO PRN (12:30)
[2020-01-04] MEDS ORDERED: LORazepam 0.5 MG TAB PO PRN (12:30)
[2020-01-04] MEDS ORDERED: NITROGLYCERIN 0.4 MG SL TAB SL PRN (12:30)
[2020-01-04] MEDS ORDERED: ACETAMINOPHEN 500 MG TAB PO PRN (12:30)
[2020-01-04] MEDS ORDERED: traMADol HCL 50 MG TAB PO PRN (12:30)
[2020-01-04] MEDS ORDERED: MORPHINE SULF INJ 2 MG/ML SYRINGE 1ML IV PRN ×2 (12:30)
[2020-01-04] MEDS ORDERED: AMIODARONE HCL 150 MG in D5W 5% 100 ML IV ONE (12:30)
[2020-01-04] MEDS ORDERED: PANTOPRAZOLE 40 MG TAB PO ONE (12:45)
[2020-01-04] MEDS ORDERED: DIGOXIN 0.125 MG TAB PO ONE (12:45)
[2020-01-04] MEDS ORDERED: POTASSIUM CHL 20 Meq TABLET PO ONE (12:45)
[2020-01-04] MEDS: ENOXAPARIN SOD 80 MG/0.8ML SYRINGE SC ONE ×2 (12:45→13:41)
[2020-01-04] MEDS ORDERED: dilTIAZem HCL 180MG ER CAP PO ONE (12:45)
[2020-01-04] MEDS ORDERED: FUROSEMIDE 40 MG/4 ML VIAL IV ONE (12:45)
[2020-01-04] MEDS ORDERED: AMIODARONE HCL 200 MG TAB PO ONE (12:45)
[2020-01-04] MEDS ORDERED: CARVEDILOL 3.125 MG TAB PO ONE (13:00)
[2020-01-04] MEDS ORDERED: LEVO50TA7 PO ×2 (14:24→16:27)
[2020-01-04 14:38] LABS: Urine Bacteria NONE SEEN /hpf (None Seen); Urine Blood 1+ /uL (Negative); Urine Specific Gravity 1.003 (1.001-1.035); Urine WBC <1 /hpf (0 - 5)
[2020-01-04] MEDS: DIGOXIN (250MCG/ML) 2 ML AMPULE IV SCH ×2 (16:14→21:30)
[2020-01-04] MEDS ORDERED: ENOXAPARIN SOD 80 MG/0.8ML SYRINGE SC SCH (22:00)
[2020-01-04] MEDS ORDERED: METOPROLOL TARTRATE 25 MG TAB PO SCH (22:00)
[2020-01-04] MEDS ORDERED: AMIODARONE HCL 200 MG TAB PO SCH (22:00)
[2020-01-04] MEDS ORDERED: CARVEDILOL 3.125 MG TAB PO SCH (22:00)
[2020-01-05] MEDS: DIGOXIN (250MCG/ML) 2 ML AMPULE IV SCH (03:30)
[2020-01-05 08:00] VITALS: BP 155/96
[2020-01-05] MEDS ORDERED: dilTIAZem HCL 180MG ER CAP PO SCH (10:00)
[2020-01-05] MEDS ORDERED: DIGOXIN 0.125 MG TAB PO SCH (10:00)
[2020-01-05] MEDS ORDERED: POTASSIUM CHL 20 Meq TABLET PO SCH (10:00)
[2020-01-05] MEDS ORDERED: PANTOPRAZOLE 40 MG TAB PO SCH (10:00)
[2020-01-05] MEDS ORDERED: ASPirin 81 mg TAB PO SCH (10:00)
[2020-01-05] MEDS ORDERED: FUROSEMIDE 40 MG/4 ML VIAL IV SCH (10:00)
== END 2020-01-05 09:45 | disposition left against medical advice (07) | DRG 308 ==
LOC: ER 07:59 → EDBD 07:59 → TELE 08:00
PROVIDERS: ADMIT Internal Medicine; ATTEND Internal Medicine Pulmonary Disease
DX: I48.91 Unspecified atrial fibrillation (principal); I50.33 Acute on chronic diastolic (congestive) heart failure; J90 Pleural effusion, not elsewhere classified; E87.6 Hypokalemia; R00.0 Tachycardia, unspecified; K44.9 Diaphragmatic hernia without obstruction or gangrene; F41.9 Anxiety disorder, unspecified; E66.3 Overweight; Z68.26 Body mass index [BMI] 26.0-26.9, adult; E07.9 Disorder of thyroid, unspecified; D69.6 Thrombocytopenia, unspecified; I11.0 Hypertensive heart disease with heart failure; Z53.29 Procedure and treatment not carried out because of patient's decision for other reasons; Z85.6 Personal history of leukemia; Z87.442 Personal history of urinary calculi; Z80.6 Family history of leukemia; Z88.8 Allergy status to other drugs, medicaments and biological substances; Z88.0 Allergy status to penicillin; Z91.013 Allergy to seafood
CPT/HCPCS: 36415; 71045; 80053; 81001; 82550; 83735; 83880; 84443; 84484; 85025; 85610; 85730; 93005; 93970; 99291; G0378; J2405; J7060

== ENCOUNTER 2020-06-14 16:39 | Inpatient (IN) | payer MEDICARE, OTHER ==
[~2020-06-14] VITALS: Ht 160 cm; Wt 66.6 kg
[~2020-06-14 16:39] MED LIST changes: -DIGO0.1238 PO; +DIGO1TAB48 PO; +LEVO50TA7 PO
[2020-06-14] MEDS ORDERED: VANCOMYCIN 1GM/250ML 250 ML IV ONE (17:45)
[2020-06-14] MEDS ORDERED: cefTRIAXone 1GM/50ML D5W 50 ML IV ONE (17:45)
[2020-06-14 18:34] LABS: Basophils # (auto) 0 10 ^3/uL (0-0.2); Basophils % (auto) 0.5 % (0.0-2.0); Eosinophils # (auto) 0 10 ^3/uL (0-0.8); Eosinophils % (auto) 0.4 % (0.0-7.0); Hemoglobin 14.2 g/dL (12.2-16.2); Lymphocytes # (auto) 1.2 10 ^3/uL (0.4-5.4); Lymphocytes % (auto) 13.7 % (10.0-50.0); Mean Corpuscular Hemoglobin 30.8 pg (28.0-32.0); Mean Corpuscular Hgb Conc. 33.8 g/dL (32.0-36.0); Mean Corpuscular Volume 91.2 fL (80.0-100.0); Monocytes # (auto) 0.8 10 ^3/uL (0-1.3); Monocytes % (auto) 9.6 % (0.0-12.0); Neutrophils # (auto) 6.6 10 ^3/uL (1.6-8.6); Neutrophils % (auto) 75.8 % (37.0-80.0); Nucleated Red Blood Cells % 0.1 %; Platelet Count (auto) 137 10^3/uL (140-450); Red Cell Distribution Width 13.3 % (11.8-14.3); White Blood Cell 8.7 10^3/uL (4.4-10.8)
[2020-06-14 18:46] LABS: INR 1.09 (0.9-1.15); Partial Thromboplastin Time 30.2 sec (23.0-31.2)
[2020-06-14 18:55] LABS: Albumin 3.4 g/dL (3.4-5.0); Anion Gap 6 (5-15); Blood Urea Nitrogen 14 mg/dL (7-18); Calcium 9.9 mg/dL (8.5-10.1); Carbon Dioxide 25 mmol/L (21-32); Chloride 111 mmol/L (98-107); Glucose 87 mg/dL (74-106); Magnesium 2.4 mg/dL (1.6-2.6); Potassium 3.9 mmol/L (3.5-5.1); Sodium 142 mmol/L (136-145)
[2020-06-14 19:02] LABS: Alanine Aminotransferase 28 U/L (13-56); Alkaline Phosphatase 108 U/L (45-117); Aspartate Aminotransferase 18 U/L (15-37); BUN/Creatinine Ratio 18.2; Bilirubin, Total 0.6 mg/dL (0.2-1.0); GFR African American 93 mL/min; GFR Non-African American 77 mL/min; Total Protein 7.6 g/dL (6.4-8.2)
[2020-06-14] MEDS ORDERED: VANCOMYCIN PER PHARMACY 0 MG IV SCH (20:00)
[2020-06-14] MEDS ORDERED: ACETAMINOPHEN 500 MG TAB PO PRN (20:00)
[2020-06-14] MEDS ORDERED: NITROGLYCERIN 0.4 MG SL TAB SL PRN (20:00)
[2020-06-14] MEDS ORDERED: DOCUSATE CALCIUM 240 MG CAP PO PRN (20:00)
[2020-06-14] MEDS ORDERED: MORPHINE SULF INJ 2 MG/ML SYRINGE 1ML IV PRN ×2 (20:00)
[2020-06-14] MEDS ORDERED: ONDANSETRON HCL 4 MG/2 ML VIAL IV PRN (20:00)
[2020-06-14] MEDS ORDERED: LORazepam 0.5 MG TAB PO PRN (20:00)
[2020-06-14] MEDS ORDERED: LABETALOL HCL 5 MG/ML 4ML SYRINGE IV PRN (20:30)
[2020-06-14] MEDS ORDERED: LABETALOL HCL 5 MG/ML 4ML SYRINGE IV ONE (20:30)
[2020-06-14] MEDS: SODIUM CHLORIDE 0.9% 1,000 ML IV SCH (20:40)
[2020-06-14] MEDS: AMIODARONE HCL 200 MG TAB PO SCH (22:00)
[2020-06-14] MEDS: ENOXAPARIN SOD 60 MG/0.6 ML SYRINGE SC SCH (22:00)
[2020-06-15 05:07] VITALS: BP 166/88
[2020-06-15] MEDS: LEVOTHYROXINE SODIUM 50 MCG TAB PO SCH (06:23)
[2020-06-15 09:00] VITALS: BP 150/116
[2020-06-15] MEDS: cefTRIAXone 1GM/50ML D5W 50 ML IV SCH ×2 (09:00→11:15)
[2020-06-15 09:01] LABS: Basophils # (auto) 0 10 ^3/uL (0-0.2); Basophils % (auto) 0.3 % (0.0-2.0); Eosinophils # (auto) 0.1 10 ^3/uL (0-0.8); Eosinophils % (auto) 0.7 % (0.0-7.0); Hematocrit 41.4 % (36.0-46.0); Hemoglobin 14.1 g/dL (12.2-16.2); Lymphocytes # (auto) 0.8 10 ^3/uL (0.4-5.4); Lymphocytes % (auto) 10.1 % (10.0-50.0); Mean Corpuscular Hgb Conc. 34.1 g/dL (32.0-36.0); Monocytes # (auto) 0.7 10 ^3/uL (0-1.3); Monocytes % (auto) 8.4 % (0.0-12.0); Neutrophils # (auto) 6.5 10 ^3/uL (1.6-8.6); Neutrophils % (auto) 80.5 % (37.0-80.0); Platelet Count (auto) 128 10^3/uL (140-450); Red Blood Cells 4.55 10^6/uL (4.0-5.20); Red Cell Distribution Width 13.5 % (11.8-14.3); White Blood Cell 8.1 10^3/uL (4.4-10.8)
[2020-06-15 09:28] LABS: Albumin 2.9 g/dL (3.4-5.0); Calcium 9.4 mg/dL (8.5-10.1); Potassium 3.9 mmol/L (3.5-5.1)
[2020-06-15 09:34] LABS: BUN/Creatinine Ratio 17.6; Bilirubin, Total 0.8 mg/dL (0.2-1.0); Total Protein 6.9 g/dL (6.4-8.2)
[2020-06-15] MEDS: ENOXAPARIN SOD 60 MG/0.6 ML SYRINGE SC SCH ×2 (10:00→21:47)
[2020-06-15] MEDS: AMIODARONE HCL 200 MG TAB PO SCH ×3 (10:00→21:46)
[2020-06-15] MEDS: dilTIAZem HCL 180MG ER CAP PO SCH ×2 (10:00→14:47)
[2020-06-15] MEDS: PANTOPRAZOLE 40 MG TAB PO SCH (10:00)
[2020-06-15] MEDS: DIGOXIN 0.125 MG TAB PO SCH ×2 (10:00→14:47)
[2020-06-15 10:13] LABS: INR 1.1 (0.9-1.15)
[2020-06-15 13:00] VITALS: BP 123/83
[2020-06-15] MEDS: SODIUM CHLORIDE 0.9% 1,000 ML IV SCH (16:15)
[2020-06-15 17:00] VITALS: BP 151/103
[2020-06-15 18:00] VITALS: BP 133/75
[2020-06-15] MEDS: VANCOMYCIN 750mg/250ml 250 ML IV SCH (18:30)
[2020-06-15 22:00] VITALS: BP 133/75
[2020-06-16 05:25] VITALS: BP 147/78
[2020-06-16 05:56] LABS: Basophils # (auto) 0 10 ^3/uL (0-0.2); Basophils % (auto) 0.6 % (0.0-2.0); Eosinophils # (auto) 0.2 10 ^3/uL (0-0.8); Eosinophils % (auto) 2.7 % (0.0-7.0); Hematocrit 41.1 % (36.0-46.0); Hemoglobin 13.8 g/dL (12.2-16.2); Lymphocytes # (auto) 1.3 10 ^3/uL (0.4-5.4); Lymphocytes % (auto) 20.2 % (10.0-50.0); Mean Corpuscular Hemoglobin 30.6 pg (28.0-32.0); Mean Corpuscular Hgb Conc. 33.6 g/dL (32.0-36.0); Monocytes # (auto) 0.6 10 ^3/uL (0-1.3); Monocytes % (auto) 9.2 % (0.0-12.0); Neutrophils # (auto) 4.3 10 ^3/uL (1.6-8.6); Neutrophils % (auto) 67.3 % (37.0-80.0); Nucleated Red Blood Cells % 0.3 %; Platelet Count (auto) 157 10^3/uL (140-450); Red Blood Cells 4.52 10^6/uL (4.0-5.20); Red Cell Distribution Width 13.2 % (11.8-14.3); White Blood Cell 6.4 10^3/uL (4.4-10.8)
[2020-06-16 06:14] LABS: BUN/Creatinine Ratio 12.1; Calcium 10.2 mg/dL (8.5-10.1); Potassium 4.4 mmol/L (3.5-5.1)
[2020-06-16] MEDS: LEVOTHYROXINE SODIUM 50 MCG TAB PO SCH (06:23)
[2020-06-16 09:00] VITALS: BP 150/86
[2020-06-16] MEDS: ENOXAPARIN SOD 60 MG/0.6 ML SYRINGE SC SCH ×2 (09:13→22:00)
[2020-06-16] MEDS: PANTOPRAZOLE 40 MG TAB PO SCH (09:13)
[2020-06-16] MEDS: AMIODARONE HCL 200 MG TAB PO SCH ×2 (09:26→22:09)
[2020-06-16] MEDS ORDERED: Ensure HIGH Protein Chocolate 8oz Bottle PO SCH (12:00)
[2020-06-16 13:00] VITALS: BP 150/51
[2020-06-16] MEDS: ENSURE CLEAR Mixed Berry 8oz Carton PO SCH ×2 (14:29→18:30)
[2020-06-16] MEDS: SODIUM CHLORIDE 0.9% 1,000 ML IV SCH (14:29)
[2020-06-16 17:00] VITALS: BP 133/96
[2020-06-16] MEDS: VANCOMYCIN 750mg/250ml 250 ML IV SCH (18:31)
[2020-06-16 22:00] VITALS: BP 154/88
[2020-06-17 05:00] VITALS: BP 152/97
[2020-06-17 06:12] LABS: Basophils # (auto) 0 10 ^3/uL (0-0.2); Basophils % (auto) 0.6 % (0.0-2.0); Eosinophils # (auto) 0.2 10 ^3/uL (0-0.8); Eosinophils % (auto) 2.7 % (0.0-7.0); Hematocrit 39.5 % (36.0-46.0); Hemoglobin 13.5 g/dL (12.2-16.2); Lymphocytes # (auto) 1.1 10 ^3/uL (0.4-5.4); Lymphocytes % (auto) 18.2 % (10.0-50.0); Mean Corpuscular Hemoglobin 31.1 pg (28.0-32.0); Mean Corpuscular Hgb Conc. 34.3 g/dL (32.0-36.0); Mean Corpuscular Volume 90.7 fL (80.0-100.0); Monocytes # (auto) 0.6 10 ^3/uL (0-1.3); Monocytes % (auto) 10.1 % (0.0-12.0); Neutrophils % (auto) 68.4 % (37.0-80.0); Nucleated Red Blood Cells % 0.1 %; Platelet Count (auto) 159 10^3/uL (140-450); Red Blood Cells 4.35 10^6/uL (4.0-5.20); Red Cell Distribution Width 13.1 % (11.8-14.3); White Blood Cell 5.8 10^3/uL (4.4-10.8)
[2020-06-17] MEDS: LEVOTHYROXINE SODIUM 50 MCG TAB PO SCH (06:14)
[2020-06-17 06:30] LABS: Potassium 4.2 mmol/L (3.5-5.1)
[2020-06-17 06:45] LABS: BUN/Creatinine Ratio 13.3; Calcium 9.5 mg/dL (8.5-10.1)
[2020-06-17] MEDS: SODIUM CHLORIDE 0.9% 1,000 ML IV SCH (08:15)
[2020-06-17 08:44] VITALS: BP 146/117
[2020-06-17] MEDS: ENSURE CLEAR Mixed Berry 8oz Carton PO SCH ×2 (09:18→12:00)
[2020-06-17] MEDS: dilTIAZem HCL 180MG ER CAP PO SCH (09:19)
[2020-06-17] MEDS: cefTRIAXone 1GM/50ML D5W 50 ML IV SCH (09:19)
[2020-06-17] MEDS: DIGOXIN 0.125 MG TAB PO SCH (09:20)
[2020-06-17] MEDS: ENOXAPARIN SOD 60 MG/0.6 ML SYRINGE SC SCH (09:20)
[2020-06-17] MEDS: PANTOPRAZOLE 40 MG TAB PO SCH (09:20)
[2020-06-17] MEDS: AMIODARONE HCL 200 MG TAB PO SCH (09:20)
[2020-06-17 13:00] VITALS: BP 141/92
[2020-06-17 15:33] VITALS: BP 146/117
[2020-06-17 17:00] VITALS: BP 159/103
== END 2020-06-17 16:28 | disposition home or self-care (01) | DRG 603 ==
LOC: ER 16:39 → TELE 16:40 → TELE-CENTR 06-15 04:52
PROVIDERS: ADMIT Family Medicine; ATTEND Internal Medicine
DX: L03.115 Cellulitis of right lower limb (principal); I48.92 Unspecified atrial flutter; D68.69 Other thrombophilia; I50.42 Chronic combined systolic (congestive) and diastolic (congestive) heart failure; I48.19 Other persistent atrial fibrillation; G89.29 Other chronic pain; M54.9 Dorsalgia, unspecified; Z20.822 Contact with and (suspected) exposure to COVID-19; E03.9 Hypothyroidism, unspecified; K21.9 Gastro-esophageal reflux disease without esophagitis; I11.0 Hypertensive heart disease with heart failure; Z87.891 Personal history of nicotine dependence; Z88.0 Allergy status to penicillin; Z88.1 Allergy status to other antibiotic agents; Z91.14 Patient's other noncompliance with medication regimen; Z91.11 Patient's noncompliance with dietary regimen; Z88.8 Allergy status to other drugs, medicaments and biological substances; Z91.013 Allergy to seafood; Z91.018 Allergy to other foods
CPT/HCPCS: 36415; 71045; 80048; 80053; 83605; 83615; 83735; 83880; 84436; 84443; 84484; 85025; 85610; 85730; 87040; 87426; 93005; 93306; 93971; 96365; 96366; 96368; G0378; J0696; J3490

== ENCOUNTER → 2021-03-31 | Outpatient (CLI) | payer MEDICARE, OTHER | END | disposition home or self-care (01) | LOC: XYW 15:23 | PROVIDERS: ATTEND Internal Medicine | DX: I34.0 Nonrheumatic mitral (valve) insufficiency (principal); I51.7 Cardiomegaly; I35.0 Nonrheumatic aortic (valve) stenosis; I48.19 Other persistent atrial fibrillation | CPT/HCPCS: 93306 ==

== ENCOUNTER → 2021-04-10 | Outpatient (CLI) | payer MEDICARE, OTHER ==
[2021-04-10 16:32] LABS: Basophils # (auto) 0 10 ^3/uL (0-0.2); Basophils % (auto) 0.7 % (0.0-2.0); Monocytes # (auto) 0.5 10 ^3/uL (0-1.3); Nucleated Red Blood Cells % 0.2 %; White Blood Cell 5.3 10^3/uL (4.4-10.8)
[2021-04-10 16:42] LABS: Eosinophils # (auto) 0.1 10 ^3/uL (0-0.8); Eosinophils % (auto) 1.7 % (0.0-7.0); Hematocrit 47.8 % (36.0-46.0); Hemoglobin 15.7 g/dL (12.2-16.2); Lymphocytes # (auto) 1.2 10 ^3/uL (0.4-5.4); Lymphocytes % (auto) 23.4 % (10.0-50.0); Mean Corpuscular Hgb Conc. 32.9 g/dL (32.0-36.0); Mean Corpuscular Volume 94.3 fL (80.0-100.0); Monocytes % (auto) 9.9 % (0.0-12.0); Neutrophils # (auto) 3.4 10 ^3/uL (1.6-8.6); Neutrophils % (auto) 64.3 % (37.0-80.0); Red Blood Cells 5.07 10^6/uL (4.0-5.20); Red Cell Distribution Width 13.6 % (11.8-14.3)
[2021-04-10 16:59] LABS: Calcium 10.3 mg/dL (8.5-10.1); Potassium 4.3 mmol/L (3.5-5.1)
[2021-04-10 17:04] LABS: BUN/Creatinine Ratio 18.3; Bilirubin, Total 0.9 mg/dL (0.2-1.0); Total Protein 7.6 g/dL (6.4-8.2)
== END | disposition home or self-care (01) ==
LOC: LAB 16:11
PROVIDERS: ATTEND Internal Medicine
DX: I48.91 Unspecified atrial fibrillation (principal); I10 Essential (primary) hypertension
CPT/HCPCS: 36415; 80053; 80061; 84443; 85025

== ENCOUNTER 2022-02-25 12:34 | Inpatient (IN) | payer MEDICARE, OTHER ==
[~2022-02-25] VITALS: Ht 147.3 cm; Wt 68.3 kg
[2022-02-25] MEDS ORDERED: SODIUM CHLORIDE 0.9% 1,000 ML IV ONE (13:00)
[2022-02-25 13:41] LABS: Basophils # (auto) 0 10 ^3/uL (0-0.2); Basophils % (auto) 0.4 % (0.0-2.0); Eosinophils # (auto) 0.1 10 ^3/uL (0-0.8); Eosinophils % (auto) 1.4 % (0.0-7.0); Hematocrit 45.2 % (36.0-46.0); Hemoglobin 15.5 g/dL (12.2-16.2); Lymphocytes # (auto) 1.6 10 ^3/uL (0.4-5.4); Lymphocytes % (auto) 18.2 % (10.0-50.0); Mean Corpuscular Hemoglobin 31.9 pg (28.0-32.0); Mean Corpuscular Hgb Conc. 34.4 g/dL (32.0-36.0); Mean Corpuscular Volume 92.9 fL (80.0-100.0); Monocytes # (auto) 0.6 10 ^3/uL (0-1.3); Monocytes % (auto) 7.5 % (0.0-12.0); Neutrophils # (auto) 6.2 10 ^3/uL (1.6-8.6); Neutrophils % (auto) 72.5 % (37.0-80.0); Red Blood Cells 4.87 10^6/uL (4.0-5.20); Red Cell Distribution Width 15.2 % (11.8-14.3); White Blood Cell 8.6 10^3/uL (4.4-10.8)
[2022-02-25 14:06] LABS: BUN/Creatinine Ratio 18.6; Calcium 9.8 mg/dL (8.5-10.1); Magnesium 2.3 mg/dL (1.6-2.6); Potassium 3.9 mmol/L (3.5-5.1)
[2022-02-25 14:09] LABS: Bilirubin, Total 0.9 mg/dL (0.2-1.0); Total Protein 7.7 g/dL (6.4-8.2)
[2022-02-25 15:14] LABS: Urine Bacteria NONE SEEN /hpf (None Seen); Urine Hyaline Cast FEW /lpf (0 - 2); Urine Mucus FEW (None Seen); Urine WBC 58 /hpf (0 - 5)
[2022-02-25 15:29] LABS: Urine Blood 4+ /uL (Negative)
[2022-02-25] MEDS ORDERED: ATROPINE SULF 1 MG/10ml SYR IV ONE (17:00)
[2022-02-25] MEDS ORDERED: MORPHINE SULFATE 4 MG/ML SYR/VIAL IV PRN (17:00)
[2022-02-25] MEDS ORDERED: ONDANSETRON HCL 4 MG/2 ML VIAL IV PRN (17:00)
[2022-02-25] MEDS ORDERED: ACETAMINOPHEN 325 MG TAB PO PRN (17:00)
[2022-02-25] MEDS ORDERED: MORPHINE SULFATE INJ 2 MG/ml SYRG IV PRN (17:00)
[2022-02-25] MEDS ORDERED: NITROGLYCERIN 0.4 MG SL TAB SL PRN ×2 (17:00)
[2022-02-25 17:23] LABS: INR 1.12 (0.9-1.15)
[2022-02-25 17:26] LABS: Magnesium 2.1 mg/dL (1.6-2.6); Phosphorus 2.4 mg/dL (2.5-4.90)
[2022-02-25] MEDS ORDERED: ATROPINE SULF 1 MG/10ml SYR IV PRN (17:45)
[2022-02-25] MEDS ORDERED: hydrALAZINE HCL 20 MG/ML VL IV PRN (20:00)
[2022-02-26 06:32] LABS: Basophils # (auto) 0 10 ^3/uL (0-0.2); Basophils % (auto) 0.7 % (0.0-2.0); Eosinophils # (auto) 0.3 10 ^3/uL (0-0.8); Eosinophils % (auto) 4.3 % (0.0-7.0); Hematocrit 37.8 % (36.0-46.0); Hemoglobin 13.1 g/dL (12.2-16.2); Lymphocytes # (auto) 1.7 10 ^3/uL (0.4-5.4); Lymphocytes % (auto) 23.9 % (10.0-50.0); Mean Corpuscular Hemoglobin 32.1 pg (28.0-32.0); Mean Corpuscular Hgb Conc. 34.7 g/dL (32.0-36.0); Mean Corpuscular Volume 92.6 fL (80.0-100.0); Monocytes # (auto) 0.8 10 ^3/uL (0-1.3); Monocytes % (auto) 10.9 % (0.0-12.0); Neutrophils # (auto) 4.2 10 ^3/uL (1.6-8.6); Neutrophils % (auto) 60.2 % (37.0-80.0); Nucleated Red Blood Cells % 0.1 %; Red Blood Cells 4.09 10^6/uL (4.0-5.20); Red Cell Distribution Width 15.3 % (11.8-14.3)
[2022-02-26 06:48] LABS: Albumin 2.8 g/dL (3.4-5.0); Calcium 9.2 mg/dL (8.5-10.1); Magnesium 2.4 mg/dL (1.6-2.6)
[2022-02-26 06:52] LABS: BUN/Creatinine Ratio 17.2; Bilirubin, Total 0.9 mg/dL (0.2-1.0); Total Protein 5.6 g/dL (6.4-8.2)
[2022-02-26] MEDS: DOCUSATE SOD 100 MG CAP PO SCH ×2 (10:30→21:58)
[2022-02-26] MEDS ORDERED: ENOXAPARIN SOD 30 MG/0.3 ML SYRINGE SC ONE (11:15)
[2022-02-26] MEDS ORDERED: DOCUSATE SOD 100 MG CAP PO PRN (21:30)
[2022-02-27] VITALS (10 sets, daily range): BP systolic 110–181; BP diastolic 75–137
[2022-02-27 03:25] LABS: Basophils # (auto) 0.1 10 ^3/uL (0-0.2); Basophils % (auto) 0.7 % (0.0-2.0); Eosinophils # (auto) 0.1 10 ^3/uL (0-0.8); Eosinophils % (auto) 0.6 % (0.0-7.0); Hematocrit 43.2 % (36.0-46.0); Hemoglobin 14.8 g/dL (12.2-16.2); Lymphocytes # (auto) 1.4 10 ^3/uL (0.4-5.4); Lymphocytes % (auto) 12.9 % (10.0-50.0); Mean Corpuscular Hemoglobin 31.7 pg (28.0-32.0); Mean Corpuscular Hgb Conc. 34.4 g/dL (32.0-36.0); Mean Corpuscular Volume 92.2 fL (80.0-100.0); Monocytes % (auto) 8.7 % (0.0-12.0); Neutrophils # (auto) 8.6 10 ^3/uL (1.6-8.6); Neutrophils % (auto) 77.1 % (37.0-80.0); Nucleated Red Blood Cells % 0.1 %; Red Blood Cells 4.68 10^6/uL (4.0-5.20); Red Cell Distribution Width 15.6 % (11.8-14.3); White Blood Cell 11.2 10^3/uL (4.4-10.8)
[2022-02-27 03:40] LABS: INR 1.1 (0.9-1.15); Partial Thromboplastin Time 27.6 sec (24.6-33.4)
[2022-02-27 03:43] LABS: Calcium 9.6 mg/dL (8.5-10.1)
[2022-02-27] MEDS ORDERED: VANCOMYCIN 1GM/250ML 250 ML IV ONE ×2 (09:37→09:45)
[2022-02-27] MEDS ORDERED: VANCOMYCIN HCL 1000 MG VL ONE (09:40)
[2022-02-27] MEDS ORDERED: fentaNYL CITRATE 100 MCG/2 ML VL ONE (09:40)
[2022-02-27] MEDS ORDERED: MIDAZOLAM HCL 2MG/2ML 2ml VIAL (1mg/ml) ONE (09:40)
[2022-02-27] MEDS ORDERED: ENOXAPARIN SOD 30 MG/0.3 ML SYRINGE SC SCH (10:00)
[2022-02-27] MEDS ORDERED: LIDOCAINE 2%HCL (LOCAL ANESTH.) INJ 20ML MDV ONE (10:02)
[2022-02-27] MEDS ORDERED: methylPREDNISolone SOD SUCC 125 MG/2 ML VL ONE (10:11)
[2022-02-27] MEDS ORDERED: FAMOTIDINE (10MG/ML) 2ML VL IV ONE (10:21)
[2022-02-27] MEDS ORDERED: IOHEXOL 350 MG/ML 100ML IJ ONE (10:22)
[2022-02-27] MEDS ORDERED: EPINEPHrine HCL 1 MG/10 ML SYRG ONE (10:24)
[2022-02-27] MEDS ORDERED: ONDANSETRON HCL 4 MG/2 ML VIAL IV ONE (11:30)
[2022-02-27] MEDS ORDERED: DIGOXIN (250MCG/ML) 2 ML AMPULE IV ONE (11:30)
[2022-02-27] MEDS ORDERED: DIGOXIN (250MCG/ML) 2 ML AMPULE ONE (11:33)
[2022-02-27] MEDS ORDERED: METOPROLOL TARTRATE 1MG/1ML-5ML VIAL IV ONE ×2 (12:42→12:45)
[2022-02-27] MEDS ORDERED: cloNIDine HCL 0.1 MG TAB PO PRN (12:45)
[2022-02-27] MEDS: PANTOPRAZOLE 40 MG TAB PO SCH (14:19)
[2022-02-27] MEDS ORDERED: ATOR-47 PO (15:29)
[2022-02-27] MEDS ORDERED: MET25T PO (15:29)
[2022-02-27] MEDS ORDERED: LOSA-69 PO (15:29)
[2022-02-27] MEDS ORDERED: APIX2.5T PO (15:29)
[2022-02-27] MEDS ORDERED: CLON0.1T PO (15:29)
[2022-02-28] MEDS ORDERED: AMIODARONE HCL 200 MG TAB PO ONE (00:15)
[2022-02-28 05:00] VITALS: BP 109/75
[2022-02-28 09:21] VITALS: BP 109/75
[2022-02-28] MEDS: PANTOPRAZOLE 40 MG TAB PO SCH (09:56)
[2022-02-28] MEDS: AMIODARONE HCL 200 MG TAB PO SCH ×2 (09:56→21:43)
[2022-02-28] MEDS: DIGOXIN 0.125 MG TAB PO SCH (11:57)
[2022-02-28] MEDS ORDERED: dilTIAZem 120MG ER CAP PO ONE (12:45)
[2022-02-28] MEDS: APIXABAN 2.5 MG TAB PO SCH ×2 (12:51→21:43)
[2022-02-28 13:00] VITALS: BP 99/60
[2022-02-28] MEDS ORDERED: DIGOXIN (250MCG/ML) 2 ML AMPULE IV ONE ×2 (14:30→21:00)
[2022-02-28 17:51] VITALS: BP 140/81
[2022-02-28] MEDS: DIGOXIN (250MCG/ML) 2 ML AMPULE IV SCH ×2 (18:00→18:05)
[2022-02-28] MEDS: SACUBITRIL-VALSARTAN 24mg/26mg TAB PO SCH (21:43)
[2022-02-28] MEDS ORDERED: APIXABAN 2.5 MG TAB PO SCH (22:00)
[2022-02-28 22:43] VITALS: BP 97/57
[2022-03-01 05:30] VITALS: BP 129/64
[2022-03-01 09:00] VITALS: BP 128/85
[2022-03-01 10:34] LABS: Basophils # (auto) 0 10 ^3/uL (0-0.2); Basophils % (auto) 0.4 % (0.0-2.0); Eosinophils # (auto) 0 10 ^3/uL (0-0.8); Eosinophils % (auto) 0.4 % (0.0-7.0); Hematocrit 39.2 % (36.0-46.0); Hemoglobin 13.4 g/dL (12.2-16.2); Lymphocytes # (auto) 1.3 10 ^3/uL (0.4-5.4); Lymphocytes % (auto) 14.6 % (10.0-50.0); Mean Corpuscular Hemoglobin 31.7 pg (28.0-32.0); Mean Corpuscular Hgb Conc. 34.2 g/dL (32.0-36.0); Mean Corpuscular Volume 92.7 fL (80.0-100.0); Monocytes # (auto) 0.9 10 ^3/uL (0-1.3); Monocytes % (auto) 10.2 % (0.0-12.0); Neutrophils # (auto) 6.8 10 ^3/uL (1.6-8.6); Neutrophils % (auto) 74.4 % (37.0-80.0); Red Blood Cells 4.22 10^6/uL (4.0-5.20); Red Cell Distribution Width 15.4 % (11.8-14.3); White Blood Cell 9.2 10^3/uL (4.4-10.8)
[2022-03-01] MEDS: SACUBITRIL-VALSARTAN 24mg/26mg TAB PO SCH ×2 (10:41→21:27)
[2022-03-01] MEDS: dilTIAZem 120MG ER CAP PO SCH (10:41)
[2022-03-01] MEDS: APIXABAN 2.5 MG TAB PO SCH (10:41)
[2022-03-01] MEDS: AMIODARONE HCL 200 MG TAB PO SCH ×2 (10:41→21:27)
[2022-03-01] MEDS: PANTOPRAZOLE 40 MG TAB PO SCH (10:42)
[2022-03-01 10:45] LABS: Calcium 9.2 mg/dL (8.5-10.1); Magnesium 2.4 mg/dL (1.6-2.6); Potassium 4.7 mmol/L (3.5-5.1)
[2022-03-01 13:10] VITALS: BP 129/76
[2022-03-01 17:29] VITALS: BP 139/50
[2022-03-01] MEDS: APIXABAN 5 MG TAB PO SCH (21:27)
[2022-03-01 22:13] VITALS: BP 119/59
[2022-03-02 05:49] VITALS: BP 141/74
[2022-03-02 08:00] VITALS: BP 132/57
[2022-03-02] MEDS: dilTIAZem 120MG ER CAP PO SCH (09:30)
[2022-03-02] MEDS: APIXABAN 5 MG TAB PO SCH (09:30)
[2022-03-02] MEDS: AMIODARONE HCL 200 MG TAB PO SCH (09:30)
[2022-03-02] MEDS: PANTOPRAZOLE 40 MG TAB PO SCH (09:31)
[2022-03-02] MEDS: SACUBITRIL-VALSARTAN 24mg/26mg TAB PO SCH (09:31)
[2022-03-02] MEDS ORDERED: DILT-29 PO (10:25)
[2022-03-02] MEDS ORDERED: SACU1TAB PO (10:25)
[2022-03-02] MEDS ORDERED: APIX5TAB PO (10:25)
[2022-03-02] MEDS: DIGOXIN 0.125 MG TAB PO SCH (11:30)
[2022-03-02 13:00] VITALS: BP 140/70
[2022-03-02 17:00] VITALS: BP 138/38
== END 2022-03-02 18:15 | DRG 242 ==
LOC: ER 12:34 → TELE 16:59 → TELE-CENTR 02-27 14:56
PROVIDERS: ADMIT Nurse Practitioner Family; ATTEND Internal Medicine
PROC: 0JH604Z Insertion of Pacemaker, Single Chamber into Chest Subcutaneous Tissue and Fascia, Open Approach (ICD-10-PCS; principal; 2022-02-25)
PROC: 02HK3JZ Insertion of Pacemaker Lead into Right Ventricle, Percutaneous Approach (ICD-10-PCS; 2022-02-25)
DX: I49.5 Sick sinus syndrome (principal); I50.41 Acute combined systolic (congestive) and diastolic (congestive) heart failure; N39.0 Urinary tract infection, site not specified; I42.9 Cardiomyopathy, unspecified; Z20.822 Contact with and (suspected) exposure to COVID-19; E03.9 Hypothyroidism, unspecified; D72.829 Elevated white blood cell count, unspecified; E78.5 Hyperlipidemia, unspecified; I10 Essential (primary) hypertension; I48.91 Unspecified atrial fibrillation; K44.9 Diaphragmatic hernia without obstruction or gangrene; Z85.6 Personal history of leukemia; Z86.73 Personal history of transient ischemic attack (TIA), and cerebral infarction without residual deficits
CPT/HCPCS: 33208; 36415; 71045; 80048; 80053; 80162; 81001; 83605; 83735; 83880; 84100; 84443; 84484; 85025; 85379; 85610; 85730; 87040; 87426; 93005; 93306; 96360; 97163; 99152; C1785; G0378; J2250; J2405; J3490

== ENCOUNTER → 2022-04-16 | Outpatient (CLI) | payer MEDICARE, OTHER ==
[~2022-04-16] MED LIST changes: +APIX5TAB PO; +ATOR-47 PO; +CLON0.1T PO; +DILT-29 PO; +LOSA-69 PO; +MET25T PO; +SACU1TAB PO
[2022-04-16 16:01] LABS: Albumin 3.6 g/dL (3.4-5.0); Calcium 10.2 mg/dL (8.5-10.1); Potassium 4.3 mmol/L (3.5-5.1)
[2022-04-16 16:05] LABS: BUN/Creatinine Ratio 12.2; Bilirubin, Total 0.6 mg/dL (0.2-1.0); Total Protein 7.4 g/dL (6.4-8.2)
== END | disposition home or self-care (01) ==
LOC: LAB 15:01
PROVIDERS: ATTEND Internal Medicine
DX: I10 Essential (primary) hypertension (principal)
CPT/HCPCS: 36415; 80053; 80162

== ENCOUNTER 2022-04-26 17:13 | Emergency (ER) | payer MEDICARE, OTHER ==
[~2022-04-26] VITALS: Ht 152.4 cm; Wt 64.0 kg
[2022-04-26 18:12] LABS: Basophils # (auto) 0.1 10 ^3/uL (0-0.2); Basophils % (auto) 1.1 % (0.0-2.0); Eosinophils # (auto) 0 10 ^3/uL (0-0.8); Eosinophils % (auto) 0.2 % (0.0-7.0); Hematocrit 45.2 % (36.0-46.0); Hemoglobin 15.4 g/dL (12.2-16.2); Lymphocytes # (auto) 0.9 10 ^3/uL (0.4-5.4); Lymphocytes % (auto) 15.1 % (10.0-50.0); Mean Corpuscular Hemoglobin 32.5 pg (28.0-32.0); Mean Corpuscular Hgb Conc. 34.1 g/dL (32.0-36.0); Mean Corpuscular Volume 95.4 fL (80.0-100.0); Monocytes # (auto) 0.5 10 ^3/uL (0-1.3); Monocytes % (auto) 8.7 % (0.0-12.0); Neutrophils # (auto) 4.4 10 ^3/uL (1.6-8.6); Neutrophils % (auto) 74.9 % (37.0-80.0); Nucleated Red Blood Cells % 0.3 %; Red Blood Cells 4.74 10^6/uL (4.0-5.20); Red Cell Distribution Width 15.1 % (11.8-14.3); White Blood Cell 5.9 10^3/uL (4.4-10.8)
[2022-04-26 18:34] LABS: Albumin 4.1 g/dL (3.4-5.0)
[2022-04-26 18:37] LABS: BUN/Creatinine Ratio 10.1; Bilirubin, Total 0.7 mg/dL (0.2-1.0); Total Protein 7.6 g/dL (6.4-8.2)
[2022-04-26] MEDS ORDERED: cloNIDine HCL 0.1 MG TAB PO ONE (19:15)
[2022-04-26 20:54] VITALS: BP 201/97
== END 2022-04-26 21:36 | disposition home or self-care (01) ==
LOC: ER 17:15
DX: I16.0 Hypertensive urgency (principal); I10 Essential (primary) hypertension; K21.9 Gastro-esophageal reflux disease without esophagitis; Z86.73 Personal history of transient ischemic attack (TIA), and cerebral infarction without residual deficits; Z88.0 Allergy status to penicillin; Z91.013 Allergy to seafood
CPT/HCPCS: 36415; 70450; 80053; 83735; 84484; 85025; 93005

== ENCOUNTER → 2022-06-15 | Outpatient (CLI) | payer MEDICARE, OTHER | END | disposition home or self-care (01) | LOC: XYW 13:50 | PROVIDERS: ATTEND Internal Medicine | DX: I08.3 Combined rheumatic disorders of mitral, aortic and tricuspid valves (principal); I48.91 Unspecified atrial fibrillation; R07.9 Chest pain, unspecified; R42 Dizziness and giddiness | CPT/HCPCS: 93306 ==

== ENCOUNTER → 2022-10-12 | Outpatient (CLI) | payer MEDICARE ==
[~2022-10-12] MED LIST changes: +AMIO200T13 PO; -AMIO200T4 PO; -LOSA-69 PO; +LOSA50TA46 PO
[2022-10-12 13:43] LABS: Basophils # (auto) 0 10 ^3/uL (0-0.2); Basophils % (auto) 0.7 % (0.0-2.0); Eosinophils # (auto) 0.1 10 ^3/uL (0-0.8); Hematocrit 38.9 % (36.0-46.0); Lymphocytes # (auto) 1.1 10 ^3/uL (0.4-5.4); Lymphocytes % (auto) 21.4 % (10.0-50.0); Mean Corpuscular Hemoglobin 32.8 pg (28.0-32.0); Mean Corpuscular Hgb Conc. 33.6 g/dL (32.0-36.0); Mean Corpuscular Volume 97.8 fL (80.0-100.0); Monocytes # (auto) 0.5 10 ^3/uL (0-1.3); Monocytes % (auto) 8.7 % (0.0-12.0); Neutrophils # (auto) 3.5 10 ^3/uL (1.6-8.6); Neutrophils % (auto) 68.2 % (37.0-80.0); Nucleated Red Blood Cells % 0.1 %; Red Blood Cells 3.97 10^6/uL (4.0-5.20); Red Cell Distribution Width 13.9 % (11.8-14.3); White Blood Cell 5.2 10^3/uL (4.4-10.8)
[2022-10-12 14:24] LABS: Albumin 3.7 g/dL (3.4-5.0); Calcium 9.8 mg/dL (8.5-10.1); Potassium 4.8 mmol/L (3.5-5.1)
[2022-10-12 14:32] LABS: BUN/Creatinine Ratio 13.3 (10.0-20.0); Bilirubin, Total 0.7 mg/dL (0.2-1.0)
[2022-10-12 14:46] LABS: Urine Bacteria NONE SEEN /hpf (None Seen); Urine Blood Negative /uL (Negative); Urine Hyaline Cast FEW /lpf (0 - 2); Urine Specific Gravity 1.015 (1.001-1.035); Urine WBC 11 /hpf (0 - 5)
== END | disposition home or self-care (01) ==
LOC: LAB 13:21
PROVIDERS: ATTEND Internal Medicine
DX: I10 Essential (primary) hypertension (principal); E03.9 Hypothyroidism, unspecified; D69.6 Thrombocytopenia, unspecified
CPT/HCPCS: 36415; 80053; 80061; 81001; 84443; 85025

== ENCOUNTER → 2022-12-15 | Outpatient (CLI) | payer MEDICARE ==
[2022-12-15 16:51] LABS: Chloride 109 mmol/L (98-107); Potassium 4.6 mmol/L (3.5-5.1); Sodium 136 mmol/L (136-145)
[2022-12-15 16:52] LABS: Anion Gap 6.9 (5-15); Carbon Dioxide 20.1 mmol/L (20-30)
[2022-12-15 16:53] LABS: Calcium 9.8 mg/dL (8.5-10.1)
[2022-12-15 16:57] LABS: BUN/Creatinine Ratio 6.6 (10.0-20.0); Blood Urea Nitrogen 8 mg/dL (9-23); Glucose 95 mg/dL (74-106)
== END | disposition home or self-care (01) ==
LOC: LAB 14:59
PROVIDERS: ATTEND Internal Medicine
DX: I50.9 Heart failure, unspecified (principal)
CPT/HCPCS: 36415; 80048; 83880

== ENCOUNTER → 2023-03-30 | Outpatient (CLI) | payer MEDICARE, MEDICAID | END | disposition home or self-care (01) | LOC: XYW 15:31 | PROVIDERS: ATTEND Internal Medicine | DX: I08.3 Combined rheumatic disorders of mitral, aortic and tricuspid valves (principal); I50.9 Heart failure, unspecified; I48.91 Unspecified atrial fibrillation | CPT/HCPCS: 93306 ==

== ENCOUNTER → 2023-04-05 | Outpatient (CLI) | payer MEDICARE, MEDICAID ==
[2023-04-05 13:35] LABS: Anion Gap 6 (5-15); Carbon Dioxide 25 mmol/L (20-30); Chloride 98 mmol/L (98-107); Potassium 4.2 mmol/L (3.5-5.1); Sodium 129 mmol/L (136-145)
[2023-04-05 13:36] LABS: Calcium 10.2 mg/dL (8.5-10.1)
[2023-04-05 13:41] LABS: Blood Urea Nitrogen 11 mg/dL (9-23); Glucose 97 mg/dL (74-106)
== END | disposition home or self-care (01) ==
LOC: LAB 12:47
PROVIDERS: ATTEND Internal Medicine
DX: I48.21 Permanent atrial fibrillation (principal); I10 Essential (primary) hypertension; I49.5 Sick sinus syndrome; R06.02 Shortness of breath
CPT/HCPCS: 36415; 80048; 83880

== ENCOUNTER → 2023-04-27 | Outpatient (CLI) | payer MEDICARE ==
[2023-04-27 13:42] LABS: Chloride 109 mmol/L (98-107); Potassium 5.1 mmol/L (3.5-5.1); Sodium 137 mmol/L (136-145)
[2023-04-27 13:43] LABS: Anion Gap 8 (5-15); Calcium 10.1 mg/dL (8.7-10.4); Carbon Dioxide 20 mmol/L (20-30)
[2023-04-27 13:48] LABS: BUN/Creatinine Ratio 13.5 (10.0-20.0); Blood Urea Nitrogen 17 mg/dL (9-23); Glucose 95 mg/dL (74-106)
== END | disposition home or self-care (01) ==
LOC: LAB 13:16
PROVIDERS: ATTEND Internal Medicine
DX: I50.42 Chronic combined systolic (congestive) and diastolic (congestive) heart failure (principal); I48.21 Permanent atrial fibrillation
CPT/HCPCS: 36415; 80048; 83880

== ENCOUNTER → 2023-06-08 | Outpatient (CLI) | payer MEDICARE, MEDICAID ==
[2023-06-08 12:35] LABS: Chloride 107 mmol/L (98-107); Potassium 4.7 mmol/L (3.5-5.1); Sodium 136 mmol/L (136-145)
[2023-06-08 12:36] LABS: Anion Gap 3 (5-15); Carbon Dioxide 26 mmol/L (20-30)
[2023-06-08 12:37] LABS: Calcium 10.2 mg/dL (8.7-10.4)
[2023-06-08 12:41] LABS: Glucose 96 mg/dL (74-106)
[2023-06-08 12:42] LABS: BUN/Creatinine Ratio 11.9 (10.0-20.0); Blood Urea Nitrogen 14 mg/dL (9-23)
== END | disposition home or self-care (01) ==
LOC: LAB 12:02
PROVIDERS: ATTEND Internal Medicine
DX: I50.42 Chronic combined systolic (congestive) and diastolic (congestive) heart failure (principal)
CPT/HCPCS: 36415; 80048; 83880

== ENCOUNTER → 2023-10-07 | Outpatient (CLI) | payer MEDICARE, MEDICAID ==
[~2023-10-07] MED LIST changes: +LOSA-534 PO; -LOSA50TA46 PO
[2023-10-07 12:20] LABS: Anion Gap 3 (5-15); Carbon Dioxide 26 mmol/L (20-30); Chloride 111 mmol/L (98-107); Potassium 4.7 mmol/L (3.5-5.1); Sodium 140 mmol/L (136-145)
[2023-10-07 12:22] LABS: Calcium 10.5 mg/dL (8.5-10.1)
[2023-10-07 12:26] LABS: Glucose 85 mg/dL (74-106)
[2023-10-07 12:30] LABS: BUN/Creatinine Ratio 17.9 (10.0-20.0); Blood Urea Nitrogen 22 mg/dL (9-23)
== END | disposition home or self-care (01) ==
LOC: LAB 11:22
PROVIDERS: ATTEND Internal Medicine
DX: I13.0 Hypertensive heart and chronic kidney disease with heart failure and stage 1 through stage 4 chronic kidney disease, or unspecified chronic kidney disease (principal); I50.9 Heart failure, unspecified; N18.30 Chronic kidney disease, stage 3 unspecified
CPT/HCPCS: 36415; 80048; 82306; 83880

== ENCOUNTER → 2023-12-30 | Outpatient (CLI) | payer MEDICARE, MEDICAID ==
[2023-12-30 15:26] LABS: Urine Bacteria None Seen /hpf (None Seen)
[2023-12-30 15:32] LABS: Basophils # (auto) 0 10 ^3/uL (0-0.2); Basophils % (auto) 0.6 % (0.0-2.0); Eosinophils # (auto) 0.1 10 ^3/uL (0-0.8); Eosinophils % (auto) 1.3 % (0.0-7.0); Hematocrit 39.4 % (36.0-46.0); Hemoglobin 13.3 g/dL (12.2-16.2); Lymphocytes # (auto) 1.1 10 ^3/uL (0.4-5.4); Lymphocytes % (auto) 22.4 % (10.0-50.0); Mean Corpuscular Hgb Conc. 33.9 g/dL (32.0-36.0); Mean Corpuscular Volume 94.6 fL (80.0-100.0); Monocytes # (auto) 0.5 10 ^3/uL (0-1.3); Monocytes % (auto) 10.4 % (0.0-12.0); Neutrophils # (auto) 3.3 10 ^3/uL (1.6-8.6); Neutrophils % (auto) 65.3 % (37.0-80.0); Nucleated Red Blood Cells % 0.3 %; Platelet Count (auto) 87 10^3/uL (140-450); Red Blood Cells 4.16 10^6/uL (4.0-5.20); Red Cell Distribution Width 13.8 % (11.8-14.3); White Blood Cell 5.1 10^3/uL (4.4-10.8)
[2023-12-30 15:51] LABS: Urine Blood 2+ /uL (Negative); Urine Clarity Clear (Clear); Urine Color Yellow (Yellow); Urine Protein, UAD TRACE (Negative); Urine Specific Gravity 1.017 (1.001-1.035); Urine Urobilinogen Normal (Negative); Urine WBC 10 /hpf (0 - 5)
[2023-12-30 16:09] LABS: Alanine Aminotransferase 10 U/L (7-40); Albumin 4.1 g/dL (3.2-4.8); Alkaline Phosphatase 110 U/L (46-116); Anion Gap 6 (5-15); BUN/Creatinine Ratio 11.4 (10.0-20.0); Bilirubin, Total 0.6 mg/dL (0.2-1.0); Blood Urea Nitrogen 16 mg/dL (9-23); Calcium 10.2 mg/dL (8.7-10.4); Carbon Dioxide 23 mmol/L (20-30); Chloride 112 mmol/L (98-107); Glucose 89 mg/dL (74-106); Potassium 4.3 mmol/L (3.5-5.1); Sodium 141 mmol/L (136-145); Total Protein 6.9 g/dL (5.7-8.2)
[2023-12-30 16:33] LABS: Aspartate Aminotransferase 14 U/L (13-40)
[2023-12-30 16:35] LABS: Platelet Estimate Decreased; RBC Morphology Normal
== END | disposition home or self-care (01) ==
LOC: LAB 15:08
PROVIDERS: ATTEND Internal Medicine
DX: I13.0 Hypertensive heart and chronic kidney disease with heart failure and stage 1 through stage 4 chronic kidney disease, or unspecified chronic kidney disease (principal); N18.31 Chronic kidney disease, stage 3a; I50.9 Heart failure, unspecified; E55.9 Vitamin D deficiency, unspecified; I48.91 Unspecified atrial fibrillation; G30.0 Alzheimer's disease with early onset; I48.21 Permanent atrial fibrillation; D68.69 Other thrombophilia; Z79.899 Other long term (current) drug therapy
CPT/HCPCS: 36415; 80053; 81001; 82607; 84443; 85025; 86300

== ENCOUNTER → 2024-01-07 | Outpatient (CLI) | payer MEDICARE, MEDICAID | END | disposition home or self-care (01) | LOC: XYW 11:30 | PROVIDERS: ATTEND Internal Medicine | DX: I08.8 Other rheumatic multiple valve diseases (principal); I25.5 Ischemic cardiomyopathy; R00.0 Tachycardia, unspecified | CPT/HCPCS: 93306 ==

== ENCOUNTER 2024-05-01 14:33 | Inpatient (IN) | payer OTHER, MEDICAID ==
[~2024-05-01] VITALS: Ht 144.8 cm; Wt 63.6 kg
--- NOTE | 2024-05-01 15:04 | ECG ---
[facility] Test Date: 2024-05-01 Test Time: 14:37:27 Pat Name: CHIKA MEDICI Department: ER Room: [address] [place] [address] Gender: F Improvement Leader: OMERO : 1940 Requested By: ISABELLE NAIK Order Number: [id number] Reading MD: Gabino Riojas Measurements Intervals [place] Rate: 108 P: 0 AL: 0 QRS: 81 QRSD: 89 T: 13 QT: 311 QTc: 417 Interpretive Statements Atrial fibrillation Anteroseptal infarct, age indeterminate Electronically Signed On 05-02-2024 18:26:11 PST by Gabino Riojas Please click the below link to view image of tracing.
--- NOTE | 2024-05-01 16:05 | ED.PDOC ---
Liyaht. trauma (HPI) HPI Comments 84 Y F BIBJordyn, presents to the ED with CC of back pain. Per EMS, patient c/o lower back pain x1week after PFS. Patient denies LOC or hitting her head. Patient reports, bilateral leg swelling [id number]; legs began to ooze yellow discharge as of yesterday after fall. Patient denies fever, chills, headache, backaches, or N/V/D. Chief Complaint: Back Pain Time Seen by MD: 15:50 Primary Care Provider: ROCIO Reviewed notes: Nurses Notes, Medications, Allergies Allergies: Coded Allergies: Diphenhydramine (Verified Allergy, Unknown, 09/22/18) Penicillins (Verified Allergy, Unknown, 01/04/20) Shellfish Allergy (Unverified Allergy, Unknown, 09/22/18) Sulfa Antibiotics (Verified Allergy, Unknown, 05/01/24) Wheat (Unverified Allergy, Unknown, 09/22/18) Uncoded Allergies: ANTIBIOTICS (Allergy, Unknown, 10/30/18) "IM ALLERGIC TO ANTIBIOTICS BUT I CAN TAKE ANCEF" UNABLE TO SPECIFIY FUTHER Home Meds Active Scripts Diltiazem Hcl (DILTIAZEM HCL ER) 240 Mg Cap, 1 CAP PO DAILY, #30 CAP 5 Refills Prov:AJ TUCKER MD 03/02/22 Sacubitril-Valsartan (Entresto 24-26 mg) 1 Tab Tab, 1 TAB PO BID, #60 TAB Prov:AJ TUCKER MD 03/02/22 Apixaban Base (ELIQUIS) 5 Mg Tab, 5 MG PO BID, #60 TAB Prov:AJ TUCKER MD 03/02/22 Levothyroxine Sodium (Levothyroxine Sodium) 50 Mcg Tab, 1 TAB PO DAILY, #30 Prov:01/04/20 Pantoprazole Sodium Sesquihydr (Pantoprazole Sodium) 40 Mg Tab, 40 MG PO BID for 30 Days, #60 TAB Prov:JOSEFINA NOVA MD 09/24/18 Diltiazem Hcl (Cardizem La) 180 Mg Cp, 180 MG PO DAILY, #30 CP Prov:JOSEFINA NOVA MD 09/24/18 Digoxin (Lanoxin) 125 Mcg Tab, 0.125 MG PO DAILY for 30 Days, #30 TAB Prov:JOSEFINA NOVA MD 09/24/18 Amiodarone HCl (Amiodarone HCl) 200 Mg Tab, 200 MG PO Q12HR for 30 Days, #60 TAB Prov:JOSEFINA NOVA MD 09/24/18 Reported Medications Clonidine Hydrochloride (Clonidine Hcl) 0.1 Mg Tab, 1 TAB PO BID 02/27/22 Atorvastatin Calcium (ATORVASTATIN CALCIUM) 80 Mg Tab, 1 TAB PO DAILY 02/27/22 Metoprolol Tartrate (Lopressor) 25 Mg Tb, 1 TAB PO BID 02/27/22 Losartan Potassium (Losartan Potassium) 50 Mg Tab, 1 TAB PO BID 02/27/22 Information Source: Patient, Emergency Med Personnel Mode of Arrival: EMS Severity: Moderate Timing: Months Duration: Since onset Prehospital treatment: None Location: None Location of laceration: None Associated signs and symtoms: None Past Medical History PAST MEDICAL HISTORY: AFIB, Anemia, CVA, GERD, HTN, Thyroid Surgical History: Pacemaker WRAPPER SELECTOR History: Denies all WRAPPER SELECTOR Hx Family History Family History: Reviewed,noncontributory to illness Social History Smoker: Non-Smoker Alcohol: Denies ETOH Use Drugs: Denies Drug Use Lives In: Home Constitutional: denies: chills, diaphoresis, fatigue, fever, malaise, sweats, weakness, others EENTM: denies: blurred vision, double vision, ear bleeding, ear discharge, ear drainage, ear pain, ear ringing, eye pain, eye redness, hearing loss, mouth pain, mouth swelling, nasal discharge, nose bleeding, nose congestion, nose pain, photophobia, tearing, throat pain, throat swelling, voice changes, others Respiratory: denies: cough, hemoptysis, orthopnea, SOB at rest, shortness of breath, SOB with excertion, stridor, wheezing, others Cardiovascular: denies: chest pain, dizzy spells, diaphoresis, Dyspnea on exertion, edema, irregular heart beat, left arm pain, lightheadedness, palpitations, PND, syncope, others Gastrointestinal: denies: abdomen distended, abdominal pain, blood streaked bowels, constipated, diarrhea, dysphagia, difficulty swallowing, hematemesis, melena, nausea, poor appetite, poor fluid intake, rectal bleeding, rectal pain, vomiting, others Genitourinary: denies: abnormal vagina bleeding, burning, dyspareunia, dysuria, flank pain, frequency, hematuria, incontinence, pain, , vagina discharge, urgency, others Neurological: denies: dizziness, fainting, headache, left sided numbness, left sided weakness, numbness, paresthesia, pre-existing deficit, right sided numbness, right sided weakness, seizure, speech problems, tingling, tremors, weakness, others Musculoskeletal: reports: back pain, others (KATHY LEG SWELLING); denies: gout, joint pain, joint swelling, muscle pain, muscle stiffness, neck pain Integumetry: denies: bruises, change in color, change in hair/nails, dryness, laceration, lesions, lumps, rash, wounds, others Allergic/Immunocompromised: denies: Difficulty Healing, Frequent Infections, Hives, Itching, others Hematologic/Lymphatic: denies: anemia, blood clots, easy bleeding, easy b ruising, swollen glands, others Endocrine: denies: excessive hunger, excessive sweating, excessive thirst, excessive urination, flushing, intolerance to cold, intolerance to heat, unexplained weight gain, unexplained weight loss, others Psychiatric: denies: anxiety, bipolar disorder, depression, hopeless, panic disorder, schizophrenia, sleepless, suicidal, others All Other Systems: Reviewed and Negative Physical Exam General Appearance: Moderate Distress, Normal HEENT: Normal ENT Inspection, Pharynx Normal, TMs Normal Neck: Full Range of Motion, Non-Tender, Normal, Normal Inspection Respiratory: Chest Non-Tender, Lungs Clear, No Accessory Muscle Use, No Respiratory Distress, Normal Breath Sounds Cardiovascular: No Edema, No JVD, No Murmur, No Gallop, Normal Peripheral Pulses, Tachycardia Breast Exam: Deferred Gastrointestinal: No Organomegaly, Non Tender, No Pulsatile Mass, Normal Bowel Sounds, Soft Genitalia: Deferred Pelvic: Deferred Rectal: Deferred Extremities: No calf tenderness, Normal capillary refill, Normal range of motion, Non-tender, Swelling (Bilateral lower extremity with redness) Musculoskeletal : Location: Bilateral Extremity Location: Leg Apperance: Normal Neurologic: Alert, outside maintenance worker II-XII nml as Tested, No Motor Deficits, Normal Affect, Normal Mood, No Sensory Deficits Cerebellar Function: NOT DONE Reflexes: NOT DONE Skin: Dry, Normal Color, Warm Peripheral Pulses: 3+ Radial (R), 3+ Radial (L) Lymphatic: No Adenopathy Was a procedure done? Was a procedure done?: No Differential Diagnosis Multiple Trauma: Abrasions, Hematoma Neck Injury: Cervical Muscle Spasm, Cervical Strain X-Ray, Labs, Meds, VS Vital Signs Date Time Temp Pulse Resp B/P (MAP) Pulse Ox O2 Delivery O2 Flow Rate FiO2 05/01/24 14:38 98.2 109 16 173/99 (123) 99 05/01/24 14:37 108 Patient alert. Blood pressure elevated. Tachycardia. Saturation pristine on room air. On examination bilateral lower extremity swelling with serous fluid. Redness of bilateral lower extremity. DVT study. Was given clindamycin. Reviewed her previous visit. Explained to the patient that she will need to be admitted for intravenous antibiotics pain Continue cardiac monitoring. [place] [address] Ph: [phone] DIAGNOSTIC IMAGING Diagnostic Imaging Report : [id number] Signed PATIENT: CHIKA ARAIZA ACCT: [id number] UNIT: [id number] : 1940 LOC: ER ROOM / BED: / AGE / SEX: 84 / F ADM STATUS: REG ER SERVICE 1611 ORDERING PHYSICIAN: ISABELLE NAIK MD PROCEDURE(s): BLDVT - BiLat Lower DVT REASON: dvt ORDER NUMBER(s): [id number], ACCESSION NUMBER(s): [id number] US BiLat Lower DVT HISTORY: dvt COMPARISON: None TECHNIQUE: Duplex Doppler evaluation of the deep venous system of the lower extremity from the common femoral veins, superficial femoral vein, great saphenous vein, deep femoral vein, popliteal vein, and calf veins, including color Doppler and spectral/pulsed waveform analysis, was performed. FINDINGS: Right: - Common femoral vein: Compressible - Deep femoral vein: Compressible - Femoral vein: Compressible - Popliteal vein: Compressible - Posterior tibial vein: Waveforms present - Other: Mild leg edema. Left: - Common femoral vein: Compressible - Deep femoral vein: Compressible - Femoral vein: Compressible - Popliteal vein: Compressible - Posterior tibial vein: Waveforms present - Other: Mild leg edema. IMPRESSION: No right or left lower extremity deep venous thrombosis. ATED BY: PAULINO HUBBARD MD DICTATED DATE/TIME: 05/01/241655 SIGNED BY: PAULINO HUBBARD MD SIGNED DATE/TIME: 05/01/241655 CC: Time of 1ST Reevaluation: 16:20 Reevaluation 1ST: Unchanged Patient Education/Counseling: Diagnosis, Treatment Family Education/Counseling: No Family Present Departure 1 Departure Time of Disposition: 16:10 Impression: Primary Impression: Cellulitis of right leg Additional Impression: Hypertensive urgency Disposition: ADMITTED INPATIENT Admit to: Med Surg Condition: Guarded Critical Care Note Critical Care Time?: No Stability Stability form required: No Heart Score Heart Score: Heart Score Response (Comments) Value History N/A 0 EKG N/A 0 Age N/A 0 Risk Factors N/A 0 Troponin N/A 0 Total 0 I personally scribed for ISABELLE NAIK MD ([email or web address]) on 05/01/24 at 16:05. Electronically submitted by Darya Blankenship ([email or web address]). I personally scribed for ISABELLE NAIK MD ([email or web address]) on 05/01/24 at 17:26. Electronically submitted by Darya Blankenship ([email or web address]). ISABELLE NAIK MD May 01, 2024 16:05
--- NOTE | 2024-05-01 16:58 | DVH ---
US BiLat Lower DVT HISTORY: dvt COMPARISON: None TECHNIQUE: Duplex Doppler evaluation of the deep venous system of the lower extremity from the common femoral veins, superficial femoral vein, great saphenous vein, deep femoral vein, popliteal vein, an d calf veins, including color Doppler and spectral/pulsed waveform analysis, was performed. FINDINGS: Right: - Common femoral vein: Compressible - Deep femoral vein: Compressible - Femoral vein: Compressible - Popliteal vein: Compressible - Posterior tibial vein: Waveforms present - Other: Mild leg edema. Left: - Common femoral vein: Compressible - Deep femoral vein: Compressible - Femoral vein: Compressible - Popliteal vein: Compressible - Posterior tibial vein: Waveforms present - Other: Mild leg edema. IMPRESSION: No right or left lower extremity deep venous thrombosis.
[2024-05-01 17:58] LABS: Basophils # (auto) 0 10 ^3/uL (0-0.2); Basophils % (auto) 0.5 % (0.0-2.0); Eosinophils # (auto) 0 10 ^3/uL (0-0.8); Eosinophils % (auto) 0.6 % (0.0-7.0); Hematocrit 39.1 % (36.0-46.0); Hemoglobin 12.8 g/dL (12.2-16.2); Lymphocytes % (auto) 16.5 % (10.0-50.0); Mean Corpuscular Hemoglobin 30.3 pg (28.0-32.0); Mean Corpuscular Hgb Conc. 32.9 g/dL (32.0-36.0); Mean Corpuscular Volume 92.3 fL (80.0-100.0); Monocytes # (auto) 0.5 10 ^3/uL (0-1.3); Monocytes % (auto) 8.7 % (0.0-12.0); Neutrophils # (auto) 4.3 10 ^3/uL (1.6-8.6); Neutrophils % (auto) 73.7 % (37.0-80.0); Platelet Count (auto) 125 10^3/uL (140-450); Red Blood Cells 4.23 10^6/uL (4.0-5.20); Red Cell Distribution Width 14.3 % (11.8-14.3); White Blood Cell 5.8 10^3/uL (4.4-10.8)
[2024-05-01 18:09] LABS: Anion Gap 5 (5-15); Carbon Dioxide 25 mmol/L (20-31); Potassium 4.8 mmol/L (3.5-5.1); Sodium 140 mmol/L (136-145)
[2024-05-01 18:15] LABS: Blood Urea Nitrogen 18 mg/dL (9-23); Glucose 99 mg/dL (74-106)
[2024-05-01 18:24] LABS: Calcium 10.9 mg/dL (8.7-10.4); Chloride 110 mmol/L (98-107)
--- NOTE | 2024-05-02 02:09 | DVHHPRES ---
History of Present Illness Resident Creating Document: ABDIRIZAK MENENDEZ RESIDENT History of Present Illness This is 84-year-old female with past medical history of CVA, atrial fibrillation, status post pacemaker presented to the ED with a chief complaint back pain for 3 days prior to these admission. Patient states that she slipped and fall 3 days ago and hurt his back without hurting head and loss of consciousness. She also mentioned has bilateral leg swelling for last 4 years but last 3 days she noticed increased redness and swelling in the right leg and occasional purulent discharge from the skin. The patient denies fever, chills, malaise, weakness, abdominal pain, nausea, vomiting, dysuria, hematuria or any change in bowel and bladder movement. PCP : Dr. Edgar Polymerization Engineer: Dr. Riojas Past Medical History The patient, hyperlipidemia, atrial fibrillation, status post pacemaker ,CVA Past Surgical History Left hip surgery and C- section Family History None Past Social History Lives alone and has a caregiver Nonsmoker, nonalcoholic and never tried any drugs Review of Systems Constitutional: Yes: Weakness; No: Fever, Chills, Sweats, Malaise, Other Eyes: No: Pain, Vision change, Conjunctivae inflammation, Eyelid inflammation, Other, Redness ENT: No: Ear pain, Ear discharge, Nose pain, Nose discharge, Nose congestion, Mouth pain, Mouth swelling, Throat pain, Throat swelling, Other Respiratory: No: Cough, Dry, Shortness of breath, SOB with excertion, Wheezing, Hemoptysis, Pleuritic Pain, Sputum, Wheezing, Other Cardiovascular: No: Chest Pain, Palpitations, Orthopnea, Paroxysmal Noc. Dyspnea, Edema, Lt Headedness, Other Gastrointestinal: No: Nausea, Vomiting, Abdominal Pain, Diarrhea, Constipation, Melena, Hematochezia, Other Genitourinary: No Dysuria, No Frequency, No Incontinence, No Hematuria, No Retention, No Other Musculoskeletal: back pain; No: other, neck pain, shoulder pain, arm pain, hand pain, leg pain, foot pain Skin: No: Rash, Lesions, Jaundice, Bruising, Other Neurological: No: Weakness, Numbness, Incoordination, Change in speech, Confusion, Seizures, Other Allergies: Coded Allergies: Diphenhydramine (Verified Allergy, Unknown, 09/22/18) Penicillins (Verified Allergy, Unknown, 01/04/20) Shellfish Allergy (Unverified Allergy, Unknown, 09/22/18) Sulfa Antibiotics (Verified Allergy, Unknown, 05/01/24) Wheat (Unverified Allergy, Unknown, 09/22/18) Uncoded Allergies: ANTIBIOTICS (Allergy, Unknown, 10/30/18) "IM ALLERGIC TO ANTIBIOTICS BUT I CAN TAKE ANCEF" UNABLE TO SPECIFIY FUTHER Exam Vital Signs Vital Signs Date Time Temp Pulse Resp B/P (MAP) Pulse Ox O2 Delivery O2 Flow Rate FiO2 05/01/24 14:38 98.2 109 16 173/99 (123) 99 Exam Physical examination: General Appearance: Alert, Oriented X3, Cooperative, No acute distress HEENT: Atraumatic, PERRLA, EOMI, Mucous membrane moist/pink Respiratory: Clear to auscultation, Normal air movement Cardiovascular: Regular rate, Normal S1, Normal S2, No murmurs, no chest wall tenderness Abdominal: Normal bowel sounds, Soft, No tenderness, No hepatospenomegaly, No masses Extremities: Bilateral stasis dermatitis with superimposed infection of the rt leg, bilateral non pitting edema, No clubbing, No cyanosis, Normal pulses. Skin: No rashes, No breakdown, No significant lesion Neuro: Use walker for long distance walking, Normal speech, Strength at 5/5 X4 ext, Normal tone, Sensation intact, grossly intact cranial nerves Psych/Mental Status: Mental status NL, Mood NL Labs/Xrays Labs Test 05/01/24 17:40 Range/Units White Blood Count 5.8 4.4-10.8 10^3/uL Red Blood Count 4.23 4.0-5.20 10^6/uL Hemoglobin 12.8 12.2-16.2 g/dL Hematocrit 39.1 36.0-46.0 % Mean Corpuscular Volume 92.3 80.0-100.0 fL Mean Corpuscular Hemoglobin 30.3 28.0-32.0 pg Mean Corpuscular Hemoglobin Concent 32.9 32.0-36.0 g/dL Red Cell Distribution Width 14.3 11.8-14.3 % Platelet Count 125 L 140-450 10^3/uL Mean Platelet Volume 8.8 6.9-10.8 fL Neutrophils (%) (Auto) 73.7 37.0-80.0 % Lymphocytes (%) (Auto) 16.5 10.0-50.0 % Monocytes (%) (Auto) 8.7 0.0-12.0 % Eosinophils (%) (Auto) 0.6 0.0-7.0 % Basophils (%) (Auto) 0.5 0.0-2.0 % Neutrophils # (Auto) 4.3 1.6-8.6 10 ^3/uL Lymphocytes # (Auto) 1.0 0.4-5.4 10 ^3/uL Monocytes # (Auto) 0.5 0-1.3 10 ^3/uL Eosinophils # (Auto) 0 0-0.8 10 ^3/uL Basophils # (Auto) 0 0-0.2 10 ^3/uL Nucleated Red Blood Cells 0.0 % Sodium Level 140 136-145 mmol/L Potassium Level 4.8 3.5-5.1 mmol/L Chloride Level 110 H 98-107 mmol/L Carbon Dioxide Level 25 20-31 mmol/L Anion Gap 5 5-15 Blood Urea Nitrogen 18 9-23 mg/dL Creatinine 1.29 H 0.550-1.02 mg/dL Glomerular Filtration Rate Calc 41 >90 mL/min BUN/Creatinine Ratio 14.0 10.0-20.0 Serum Glucose 99 74-106 mg/dL Calcium Level 10.9 H 8.7-10.4 mg/dL B-Type Natriuretic Peptide 350.68 0-100 pg/mL Assessment/Plan Assessment/Plan Assessment and plan: # Possible cellulitis of the rt lower leg # Bilateral stasis dermatitis with superimposed cellulitis of the rt lower leg - Doppler scan of the lower limb excluded the possibility of the DVT - Patient has no risk factor for MRSA and allergic penicillin and sulfa drugs - IV Clindamycin 600 mg t.i.d. # Paroxysmal atrial fibrillation with secondary hypercoagulable state - [id number] score 6 - Amiodarone 200 mg p.o. b.i.d. - Metoprolol tartrate 25 mg b.i.d. - Eliquis 5 mg b.i.d. # S/P pacemaker due to acute sick sinus syndrome # Chronic hypothyroidism - Levothyroxine 50 mcg at q.6 a.m. # NISA on CKD likely hemodynamically mediated/VMS - Monitor BMP # Possible chronic systolic heart failure with improved ejection fraction - BNP is elevated - Ordered chest xray - Echo on 01/17 revealed ejection fraction 60% with RVSP 60 mm Hg - Entresto mg 1 tab p.o. b.i.d. # PUD prophylaxis - Pepcid 20 mg p.o. daily # DVT prophylaxis - patient is on Eliquis Goal of care discussed with the patient for more than 20 minutes full code Plan discussed with Dr. Johnson Plan discussed with: Patient, Other My Orders Orders - ABDIRIZAK MENENDEZ Procedure Category Date Status Time Admit ADMIT 05/02/24 Transmitted 02:06 Date of Service: May 02, 2024 Billing Provider: MAGGY JOHNSON MD Common Visit Codes: [id number] INP/OBS CARE (HIGH) ABDIRIZAK MENENDEZ RESIDENT May 02, 2024 02:09 MAGGY JOHNSON MD May 02, 2024 18:51
[2024-05-02] MEDS: CLINDAMYCIN 300MG IV 50 ML IV ONE (04:34)
[2024-05-02] MEDS ORDERED: CLINDAMYCIN 600MG IV 50 ML IV SCH (06:00)
--- NOTE | 2024-05-02 06:20 | DVH ---
CHEST RADIOGRAPH Indication: shortness of breath Technique: Single frontal view of the chest was obtained Comparison: CXR1 on DOS: 03/03/22 FINDINGS: Lines and Tubes: There is a pacemaker with lead overlying the right ventricle. Lungs: Mild pulmonary congestion. Pleura: No effusion. No pneumothorax. Cardiomediastinal contours: There are calcifications in the aortic arch. Cardiomegaly. Bones: No acute osseous abnormality. IMPRESSION: 1. Pulmonary congestion. 2. Cardiomegaly.
[2024-05-02] MEDS: LEVOTHYROXINE SODIUM 50 MCG TAB PO SCH (07:00)
[2024-05-02 08:08] VITALS: BP 168/87; PULSE 83; RESP 20; TEMP 97.8; O2SAT 99
[2024-05-02] MEDS: hydrALAZINE HCL 20 MG/ML VL IV ONE (08:45)
[2024-05-02] MEDS: SACUBITRIL-VALSARTAN 24mg/26mg TAB PO SCH (09:18)
[2024-05-02] MEDS: FAMOTIDINE 20 MG TAB PO SCH (09:18)
[2024-05-02] MEDS: METOPROLOL TARTRATE 25 MG TAB PO SCH (09:19)
[2024-05-02] MEDS: APIXABAN 5 MG TAB PO SCH (09:19)
[2024-05-02] MEDS: LOSARTAN POTASSIUM 50 MG TAB PO SCH (09:20)
[2024-05-02 09:55] VITALS: BP 167/86; PULSE 68; RESP 18; TEMP 98.6; O2SAT 96
[2024-05-02 10:00] VITALS: BP 137/64; PULSE 78; RESP 18; TEMP 97.9; O2SAT 94
[2024-05-02] MEDS: AMIODARONE HCL 200 MG TAB PO SCH (10:00)
[2024-05-02] MEDS: PANTOPRAZOLE 40 MG TAB PO SCH (10:00)
--- NOTE | 2024-05-02 18:58 | DVHDS2 ---
Discharge Summary Date of Admission May 02, 2024 at 02:06 Date of Discharge: May 02, 2024 Labs/Diagnostic Data: Laboratory Results Test 05/01/24 17:40 White Blood Count 5.8 10^3/uL (4.4-10.8) Red Blood Count 4.23 10^6/uL (4.0-5.20) Hemoglobin 12.8 g/dL (12.2-16.2) Hematocrit 39.1 % (36.0-46.0) Mean Corpuscular Volume 92.3 fL (80.0-100.0) Mean Corpuscular Hemoglobin 30.3 pg (28.0-32.0) Mean Corpuscular Hemoglobin Concent 32.9 g/dL (32.0-36.0) Red Cell Distribution Width 14.3 % (11.8-14.3) Platelet Count 125 10^3/uL (140-450) Mean Platelet Volume 8.8 fL (6.9-10.8) Neutrophils (%) (Auto) 73.7 % (37.0-80.0) Lymphocytes (%) (Auto) 16.5 % (10.0-50.0) Monocytes (%) (Auto) 8.7 % (0.0-12.0) Eosinophils (%) (Auto) 0.6 % (0.0-7.0) Basophils (%) (Auto) 0.5 % (0.0-2.0) Neutrophils # (Auto) 4.3 10 ^3/uL (1.6-8.6) Lymphocytes # (Auto) 1.0 10 ^3/uL (0.4-5.4) Monocytes # (Auto) 0.5 10 ^3/uL (0-1.3) Eosinophils # (Auto) 0 10 ^3/uL (0-0.8) Basophils # (Auto) 0 10 ^3/uL (0-0.2) Nucleated Red Blood Cells 0.0 % Sodium Level 140 mmol/L (136-145) Potassium Level 4.8 mmol/L (3.5-5.1) Chloride Level 110 mmol/L (98-107) Carbon Dioxide Level 25 mmol/L (20-31) Anion Gap 5 (5-15) Blood Urea Nitrogen 18 mg/dL (9-23) Creatinine 1.29 mg/dL (0.550-1.02) Glomerular Filtration Rate Calc 41 mL/min (>90) BUN/Creatinine Ratio 14.0 (10.0-20.0) Serum Glucose 99 mg/dL (74-106) Hemoglobin A1c 5.0 % A1C (<5.7) Calcium Level 10.9 mg/dL (8.7-10.4) B-Type Natriuretic Peptide 350.68 pg/mL (0-100) Thyroid Stimulating Hormone (TSH) 4.51 uIU/mL (0.55-4.78) Other Laboratory Tests 05/01/24 17:40 Brief Hx & Hospital Course: This is 84-year-old female with past medical history of CVA, atrial fibrillation, status post pacemaker presented to the ED with a chief complaint back pain for 3 days prior to these admission. Patient states that she slipped and fall 3 days ago and hurt his back without hurting head and loss of consciousness. She also mentioned has bilateral leg swelling for last 4 years but last 3 days she noticed increased redness and swelling in the right leg and occasional purulent discharge from the skin. Patient left AMA did not want to stay in the hospital. Condition at Discharge: Poor Final Diagnosis/Problems List # Possible cellulitis of the rt lower leg # Bilateral stasis dermatitis with superimposed cellulitis of the rt lower leg # Paroxysmal atrial fibrillation with secondary hypercoagulable state - [id number] score 6 # S/P pacemaker due to acute sick sinus syndrome Discharge Disposition: AMA Discharge Statement: "Patient was advised to return to the ER or call 911 if any headaches, dizziness, shortness of breath, chest pain, abdominal pain, bleeding, fevers, or worsening of medical condition. Patient was counseled about treatment plan, medications, possible side effects, patientverbalized understanding. All questions were answered to the best of my ability. This discharge took greater then 30 minutes in planning, reviewing documentation, counseling the patient, and discussing with other team members." ASSESSMENT ASSESSMENT Assessment Date of Service: May 02, 2024 Billing Provider: MAGGY TAVARES MD Common Visit Codes: NOT BILLABLE MAGGY TAVARES MD May 02, 2024 18:58
[2024-05-02] MEDS ORDERED: ATORVASTATIN 20 MG TAB PO SCH (22:00)
--- NOTE | 2024-05-03 15:13 | ECG ---
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
== END 2024-05-02 11:45 | disposition left against medical advice (07) | DRG 603 ==
LOC: ER 14:33 → EDBD 14:33 → OVERFLOW 05-02 02:06
PROVIDERS: ADMIT Internal Medicine; ATTEND Internal Medicine
DX: L03.115 Cellulitis of right lower limb (principal); N17.9 Acute kidney failure, unspecified; D68.69 Other thrombophilia; I87.2 Venous insufficiency (chronic) (peripheral); I48.0 Paroxysmal atrial fibrillation; E03.9 Hypothyroidism, unspecified; N18.9 Chronic kidney disease, unspecified; I12.9 Hypertensive chronic kidney disease with stage 1 through stage 4 chronic kidney disease, or unspecified chronic kidney disease; E78.5 Hyperlipidemia, unspecified; K21.9 Gastro-esophageal reflux disease without esophagitis; I16.0 Hypertensive urgency; Z53.29 Procedure and treatment not carried out because of patient's decision for other reasons; Z95.0 Presence of cardiac pacemaker; Z86.73 Personal history of transient ischemic attack (TIA), and cerebral infarction without residual deficits; Z86.718 Personal history of other venous thrombosis and embolism; Z88.2 Allergy status to sulfonamides; Z88.1 Allergy status to other antibiotic agents; Z88.0 Allergy status to penicillin; Z91.013 Allergy to seafood; N95.1 Menopausal and female climacteric states
CPT/HCPCS: 36415; 71045; 80048; 83036; 83880; 84443; 85025; 87040; 93005; 93970; G0378; J3490

== ENCOUNTER 2024-05-04 12:08 | Emergency (ER) | payer OTHER, MEDICAID ==
[~2024-05-04] VITALS: Ht 154.9 cm; Wt 65.0 kg
--- NOTE | 2024-05-04 12:49 | ED.PDOC ---
Musculoskeletal HPI Comments 84 Y F with PMHX of GERD, HTN, and CVA presents to the ED with CC of lower extremity. Patient states, that she has been experiencing bilateral leg pain with associated weeping, yellow drainage, and erythema x months. Patient has a follow up consolation with a tool grinder set up operator gear at 1330 today (05/04/24). Patient denies fever, chills, body aches, cough, nasal congestion or N/V/D. Chief Complaint: Extremity Swelling Time Seen by MD: 12:40 Primary Care Provider: ROCIO Reviewed Notes: Nurses Notes, Medications, Allergies Allergies: Coded Allergies: Diphenhydramine (Verified Allergy, Unknown, 09/22/18) Penicillins (Verified Allergy, Unknown, 01/04/20) Shellfish Allergy (Unverified Allergy, Unknown, 09/22/18) Sulfa Antibiotics (Verified Allergy, Unknown, 05/01/24) Wheat (Unverified Allergy, Unknown, 09/22/18) Uncoded Allergies: ANTIBIOTICS (Allergy, Unknown, 10/30/18) "IM ALLERGIC TO ANTIBIOTICS BUT I CAN TAKE ANCEF" UNABLE TO SPECIFIY FUTHER Home Meds Active Scripts Diltiazem Hcl (DILTIAZEM HCL ER) 240 Mg Cap, 1 CAP PO DAILY, #30 CAP 5 Refills Prov:AJ TUCKER MD 03/02/22 Sacubitril-Valsartan (Entresto 24-26 mg) 1 Tab Tab, 1 TAB PO BID, #60 TAB Prov:AJ TUCKER MD 03/02/22 Apixaban Base (ELIQUIS) 5 Mg Tab, 5 MG PO BID, #60 TAB Prov:AJ TUCKER MD 03/02/22 Levothyroxine Sodium (Levothyroxine Sodium) 50 Mcg Tab, 1 TAB PO DAILY, #30 Prov:Gerald Virk 01/04/20 Pantoprazole Sodium Sesquihydr (Pantoprazole Sodium) 40 Mg Tab, 40 MG PO BID for 30 Days, #60 TAB Prov:JOSEFINA NOVA MD 09/24/18 Diltiazem Hcl (Cardizem La) 180 Mg Cp, 180 MG PO DAILY, #30 CP Prov:JOSEFINA NOVA MD 09/24/18 Digoxin (Lanoxin) 125 Mcg Tab, 0.125 MG PO DAILY for 30 Days, #30 TAB Prov:JOSEFINA NOVA MD 09/24/18 Amiodarone HCl (Amiodarone HCl) 200 Mg Tab, 200 MG PO Q12HR for 30 Days, #60 TAB Prov:JOSEFINA NOVA MD 09/24/18 Reported Medications Clonidine Hydrochloride (Clonidine Hcl) 0.1 Mg Tab, 1 TAB PO BID 02/27/22 Atorvastatin Calcium (ATORVASTATIN CALCIUM) 80 Mg Tab, 1 TAB PO DAILY 02/27/22 Metoprolol Tartrate (Lopressor) 25 Mg Tb, 1 TAB PO BID 02/27/22 Losartan Potassium (Losartan Potassium) 50 Mg Tab, 1 TAB PO BID 02/27/22 Information Source: Patient Mode of Arrival: Wheelchair Location: Bilateral Extremity Location: Leg Timing: Months Prehospital treatment: None Severity: Mild Able to Move Extremity: Yes Bear Weight: Limited Mechanism: None Symptoms: Swelling, Erythema DVT Risk Factors: NONE Associated signs and symptoms: Leg pain Past Medical History PAST MEDICAL HISTORY: AFIB, Anemia, CVA, GERD, HTN, Thyroid Surgical History: Pacemaker 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 DRIVER Hx Family History Family History: Reviewed,noncontributory to illness Social History Smoker: Non-Smoker Alcohol: Denies ETOH Use Drugs: Denies Drug Use Lives In: Home Constitutional: denies: chills, diaphoresis, fatigue, fever, malaise, sweats, weakness, others EENTM: denies: blurred vision, double vision, ear bleeding, ear discharge, ear drainage, ear pain, ear ringing, eye pain, eye redness, hearing loss, mouth pain, mouth swelling, nasal discharge, nose bleeding, nose congestion, nose pain, photophobia, tearing, throat pain, throat swelling, voice changes, others Respiratory: denies: cough, hemoptysis, orthopnea, SOB at rest, shortness of breath, SOB with excertion, stridor, wheezing, others Cardiovascular: denies: chest pain, dizzy spells, diaphoresis, Dyspnea on exertion, edema, irregular heart beat, left arm pain, lightheadedness, pal pitations, PND, syncope, others Gastrointestinal: denies: abdomen distended, abdominal pain, blood streaked bowels, constipated, diarrhea, dysphagia, difficulty swallowing, hematemesis, melena, nausea, poor appetite, poor fluid intake, rectal bleeding, rectal pain, vomiting, others Genitourinary: denies: abnormal vagina bleeding, burning, dyspareunia, dysuria, flank pain, frequency, hematuria, incontinence, pain, , vagina discharge, urgency, others Neurological: denies: dizziness, fainting, headache, left sided numbness, left sided weakness, numbness, paresthesia, pre-existing deficit, right sided numbness, right sided weakness, seizure, speech problems, tingling, tremors, weakness, others Musculoskeletal: reports: others (KATHY LOWER LEG SWELLING); denies: back pain, gout, joint pain, joint swelling, muscle pain, muscle stiffness, neck pain Integumetry: denies: bruises, change in color, change in hair/nails, dryness, laceration, lesions, lumps, rash, wounds, others Allergic/Immunocompromised: denies: Difficulty Healing, Frequent Infections, Hives, Itching, others Hematologic/Lymphatic: denies: anemia, blood clots, easy bleeding, easy bruising, swollen glands, others Endocrine: denies: excessive hunger, excessive sweating, excessive thirst, excessive urination, flushing, intolerance to cold, intolerance to heat, unexplained weight gain, unexplained weight loss, others Psychiatric: denies: anxiety, bipolar disorder, depression, hopeless, panic disorder, schizophrenia, sleepless, suicidal, others All Other Systems: Reviewed and Negative Physical Exam General Appearance: No Apparent Distress HEENT: Normal ENT Inspection, Pharynx Normal, TMs Normal Neck: Full Range of Motion, Non-Tender, Normal, Normal Inspection Respiratory: Chest Non-Tender, Lungs Clear, No Accessory Muscle Use, No Respiratory Distress, Normal Breath Sounds Cardiovascular: No Edema, No JVD, No Murmur, No Gallop, Normal Peripheral Pulses, Regular Rate/Rhythm Breast Exam: Deferred Gastrointestinal: No Organomegaly, Non Tender, No Pulsatile Mass, Normal Bowel Sounds, Soft Genitalia: Deferred Pelvic: Deferred Rectal: Deferred Extremities: No calf tenderness, Normal capillary refill, Other (Some edema with redness and some drainage from the lower extremities) Musculoskeletal : Apperance: Normal Neurologic: Alert, 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 Was a procedure done?: No Differential Diagnosis EXT Differential Diagnosis: Cellulitis, Gout, Bursitis X-Ray, Labs, Meds, VS Vital Signs Date Time Temp Pulse Resp B/P (MAP) Pulse Ox O2 Delivery O2 Flow Rate FiO2 05/04/24 12:14 97.4 111 18 176/96 (122) 98 The patient will be discharged The patient will follow up with the primary care doctor The patient has an appointment with a tool grinder set up operator gear at 1:30 a.m. Time of 1ST Reevaluation: 13:10 Reevaluation 1ST: Unchanged Consultation: Other (RAILROAD DETECTIVE EXAMINED AT 1230) Patient Education/Counseling: Diagnosis, Treatment, Prognosis, Need For Follow Up Family Education/Counseling: No Family Present Departure 1 Departure Time of Disposition: 13:17 Impression: Primary Impression: Pedal edema Additional Impression: Lower extremity cellulitis Qualified Codes: L03.119 - Cellulitis of unspecified part of limb Disposition: 01 HOME / SELF CARE / HOMELESS Condition: Fair Discharged With: Self Critical Care Note Critical Care Time?: No Stability Stability form required: No Heart Score Heart Score: Heart Score Response (Comments) Value History N/A 0 EKG N/A 0 Age N/A 0 Risk Factors N/A 0 Troponin N/A 0 Total 0 I personally scribed for SUNITHA GUAN MD ([email or web address]) on 05/04/24 at 12:49. Electronically submitted by Darya Blankenship ([email or web address]). I personally scribed for SUNITHA GUAN MD ([email or web address]) on 05/04/24 at 12:53. Electronically submitted by Darya Blankenship ([email or web address]). SUNITHA GUAN MD May 04, 2024 12:49
[2024-05-04 13:38] VITALS: BP 151/97; PULSE 88; RESP 18; TEMP 98; O2SAT 100
== END 2024-05-04 13:52 | disposition home or self-care (01) ==
LOC: ER 12:10
DX: R60.9 Edema, unspecified (principal); L03.119 Cellulitis of unspecified part of limb; K21.9 Gastro-esophageal reflux disease without esophagitis; I10 Essential (primary) hypertension; E03.9 Hypothyroidism, unspecified; Z88.0 Allergy status to penicillin; Z88.2 Allergy status to sulfonamides; Z88.8 Allergy status to other drugs, medicaments and biological substances; Z79.899 Other long term (current) drug therapy; Z86.73 Personal history of transient ischemic attack (TIA), and cerebral infarction without residual deficits; Z98.890 Other specified postprocedural states

== ENCOUNTER 2024-05-16 11:50 | Emergency (ER) | payer OTHER, MEDICAID ==
[~2024-05-16] VITALS: Ht 157.5 cm; Wt 64.5 kg
--- NOTE | 2024-05-16 13:08 | ED.PDOC ---
Musculoskeletal HPI Comments 84 year old female presents to the ED with chief complaint of leg swelling. Patient reports that she has been experiencing bilateral leg swelling for the past few days. Patient relays that she was recently admitted to [facility] on 05/04/24 for the same complaint, however, her legs have started to experience a black discoloration. Patient denies any numbness, weakness, chest pain, SOB, dizziness, or fever. Chief Complaint: Lower Extremity Time Seen by MD: 13:04 Primary Care Provider: steve Reviewed Notes: Nurses Notes, Medications, Allergies Allergies: Coded Allergies: Diphenhydramine (Verified Allergy, Unknown, 09/22/18) Penicillins (Verified Allergy, Unknown, 01/04/20) Shellfish Allergy (Unverified Allergy, Unknown, 09/22/18) Sulfa Antibiotics (Verified Allergy, Unknown, 05/01/24) Wheat (Unverified Allergy, Unknown, 09/22/18) Uncoded Allergies: ANTIBIOTICS (Allergy, Unknown, 10/30/18) "IM ALLERGIC TO ANTIBIOTICS BUT I CAN TAKE ANCEF" UNABLE TO SPECIFIY FUTHER Home Meds Active Scripts Diltiazem Hcl (DILTIAZEM HCL ER) 240 Mg Cap, 1 CAP PO DAILY, #30 CAP 5 Refills Prov:AJ TUCKER MD 03/02/22 Sacubitril-Valsartan (Entresto 24-26 mg) 1 Tab Tab, 1 TAB PO BID, #60 TAB Prov:AJ TUCKER MD 03/02/22 Apixaban Base (ELIQUIS) 5 Mg Tab, 5 MG PO BID, #60 TAB Prov:AJ TUCKER MD 03/02/22 Levothyroxine Sodium (Levothyroxine Sodium) 50 Mcg Tab, 1 TAB PO DAILY, #30 Prov:Sully01/04/20 Pantoprazole Sodium Sesquihydr (Pantoprazole Sodium) 40 Mg Tab, 40 MG PO BID for 30 Days, #60 TAB Prov:JOSEFINA NOVA MD 09/24/18 Diltiazem Hcl (Cardizem La) 180 Mg Cp, 180 MG PO DAILY, #30 CP Prov:JOSEFINA NOVA MD 09/24/18 Digoxin (Lanoxin) 125 Mcg Tab, 0.125 MG PO DAILY for 30 Days, #30 TAB Prov:JOSEFINA NOVA MD 09/24/18 Amiodarone HCl (Amiodarone HCl) 200 Mg Tab, 200 MG PO Q12HR for 30 Days, #60 TAB Prov:JOSEFINA NOVA MD 09/24/18 Reported Medications Clonidine Hydrochloride (Clonidine Hcl) 0.1 Mg Tab, 1 TAB PO BID 02/27/22 Atorvastatin Calcium (ATORVASTATIN CALCIUM) 80 Mg Tab, 1 TAB PO DAILY 02/27/22 Metoprolol Tartrate (Lopressor) 25 Mg Tb, 1 TAB PO BID 02/27/22 Losartan Potassium (Losartan Potassium) 50 Mg Tab, 1 TAB PO BID 02/27/22 Information Source: Patient, Friend Mode of Arrival: Wheelchair Location: Bilateral Extremity Location: Leg Timing: Days Prehospital treatment: None Severity: Moderate Able to Move Extremity: Yes Bear Weight: Limited Pain: Moderate Mechanism: Spontaneous Circumstances: Spontaneous Onset of Symptoms: Spontaneous Symptoms: Swelling, Pain DVT Risk Factors: NONE Past Medical History PAST MEDICAL HISTORY: AFIB, Anemia, CVA, GERD, HTN, Thyroid Surgical History: Pacemaker 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 all OYSTER WASHER Hx Family History Family History: Reviewed,noncontributory to illness Social History Smoker: Non-Smoker Alcohol: Denies ETOH Use Drugs: Denies Drug Use Lives In: Home Constitutional: denies: chills, diaphoresis, fatigue, fever, malaise, sweats, weakness, others EENTM: denies: blurred vision, double vision, ear bleeding, ear discharge, ear drainage, ear pain, ear ringing, eye pain, eye redness, hearing loss, mouth pain, mouth swelling, nasal discharge, nose bleeding, nose congestion, nose pain, photophobia, tearing, throat pain, throat swelling, voice changes, others Respiratory: denies: cough, hemoptysis, orthopnea, SOB at rest, shortness of breath, SOB with excertion, stridor, wheezing, others Cardiovascular: reports: edema (Bilateral legs); denies: chest pain, dizzy spells, diaphoresis, Dyspnea on exertion, irregular heart beat, left arm pain, lightheadedness, palpitations, PND, syncope, others Gastrointestinal: denies: abdomen distended, abdominal pain, blood streaked bowels, constipated, diarrhea, dysphagia, difficulty swallowing, hematemesis, melena, nausea, poor appetite, poor fluid intake, rectal bleeding, rectal pain, vomiting, others Genitourinary: denies: abnormal vagina bleeding, burning, dyspareunia, dysuria, flank pain, frequency, hematuria, incontinence, pain, , vagina discharge, urgency, others Neurological: denies: dizziness, fainting, headache, left sided numbness, left sided weakness, numbness, paresthesia, pre-existing deficit, right sided numbness, right sided weakness, seizure, speech problems, tingling, tremors, weakness, others Musculoskeletal: denies: back pain, gout, joint pain, joint swelling, muscle pain, muscle stiffness, neck pain, others Integumetry: reports: change in color; denies: bruises, change in hair/nails, dryness, laceration, lesions, lumps, rash, wounds, others Allergic/Immunocompromised: denies: Difficulty Healing, Frequent Infections, Hives, Itching, others Hematologic/Lymphatic: denies: anemia, blood clots, easy bleeding, easy bruising, swollen glands, others Endocrine: denies: excessive hunger, excessive sweating, excessive thirst, excessive urination, flushing, intolerance to cold, intolerance to heat, unexplained weight gain, unexplained weight loss, others Psychiatric: denies: anxiety, bipolar disorder, depression, hopeless, panic disorder, schizophrenia, sleepless, suicidal, others All Other Systems: Reviewed and Negative Physical Exam General Appearance: Moderate Distress, Normal HEENT: Normal ENT Inspection, PERRL/EOMI Neck: Full Range of Motion, Non-Tender, Normal, Normal Inspection Respiratory: Chest Non-Tender, Lungs Clear, No Accessory Muscle Use, No Respiratory Distress, Normal Breath Sounds Cardiovascular: No Edema, No JVD, No Murmur, No Gallop, Normal Peripheral Pulses, Regular Rate/Rhythm Breast Exam: Deferred Gastrointestinal: No Organomegaly, Non Tender, No Pulsatile Mass, Normal Bowel Sounds, Soft Genitalia: Deferred Pelvic: Deferred Rectal: Deferred Extremities: No calf tenderness, Normal capillary refill, Normal range of motion, Non-tender, No pedal edema, Swelling (Bilateral lower extremity) Musculoskeletal : Apperance: Normal Neurologic: Alert, entry driver operator II-XII nml as Tested, No Motor Deficits, Normal Affect, Normal Mood, No Sensory Deficits Cerebellar Function: NOT DONE Reflexes: NOT DONE Skin: Dry, Normal Color, Warm, Wounds (Bilateral lower extremity) Peripheral Pulses: 3+ Radial (R), 3+ Radial (L) Lymphatic: No Adenopathy Was a procedure done? Was a procedure done?: No Differential Diagnosis EXT Differential Diagnosis: Cellulitis, CHF X-Ray, Labs, Meds, VS Vital Signs Date Time Temp Pulse Resp B/P (MAP) Pulse Ox O2 Delivery O2 Flow Rate FiO2 05/16/24 12:21 98.4 96 16 173/100 (124) 98 Lab Test 05/16/24 13:11 Range/Units White Blood Count 4.7 4.4-10.8 10^3/uL Red Blood Count 4.36 4.0-5.20 10^6/uL Hemoglobin 13.1 12.2-16.2 g/dL Hematocrit 39.1 36.0-46.0 % Mean Corpuscular Volume 89.7 80.0-100.0 fL Mean Corpuscular Hemoglobin 30.1 28.0-32.0 pg Mean Corpuscular Hemoglobin Concent 33.6 32.0-36.0 g/dL Red Cell Distribution Width 14.7 H 11.8-14.3 % Platelet Count 74 L 140-450 10^3/uL Mean Platelet Volume 9.3 6.9-10.8 fL Neutrophils (%) (Auto) 73.6 37.0-80.0 % Lymphocytes (%) (Auto) 15.9 10.0-50.0 % Monocytes (%) (Auto) 9.5 0.0-12.0 % Eosinophils (%) (Auto) 0.5 0.0-7.0 % Basophils (%) (Auto) 0.5 0.0-2.0 % Neutrophils # (Auto) 3.5 1.6-8.6 10 ^3/uL Lymphocytes # (Auto) 0.7 0.4-5.4 10 ^3/uL Monocytes # (Auto) 0.4 0-1.3 10 ^3/uL Eosinophils # (Auto) 0 0-0.8 10 ^3/uL Basophils # (Auto) 0 0-0.2 10 ^3/uL Nucleated Red Blood Cells 0.1 % Sodium Level 141 136-145 mmol/L Potassium Level 4.5 3.5-5.1 mmol/L Chloride Level 106 98-107 mmol/L Carbon Dioxide Level 28 20-31 mmol/L Anion Gap 7 5-15 Blood Urea Nitrogen 16 9-23 mg/dL Creatinine 1.26 H 0.550-1.02 mg/dL Glomerular Filtration Rate Calc 43 >90 mL/min BUN/Creatinine Ratio 12.7 10.0-20.0 Serum Glucose 96 74-106 mg/dL Calcium Level 10.3 8.7-10.4 mg/dL B-Type Natriuretic Peptide 345.54 0-100 pg/mL Patient alert. Blood pressure elevated. Saturation pristine. Answering all questions. Moving all extremities. Was given clonidine. Scaling of bilateral lower extremity. Wound care. Ultrasound reviewed does not show any acute process. Reviewed her previous chart. Explained to the patient. Continue cardiac monitoring. DVT US: FINDINGS: The right and left common femoral, superficial femoral, popliteal, posterior tibial veins appear patent with normal augmentation, phasicity, compressi bility and color-flow. IMPRESSION: 1. There is no sonographic evidence for DVT in the lower extremities. Time of 1ST Reevaluation: 14:04 Reevaluation 1ST: Unchanged Patient Education/Counseling: Diagnosis, Treatment Family Education/Counseling: Diagnosis, Treatment Additional Information I reviewed the following notes from patient's past medical encounters: 05/04/24 for Pedal edema The following tests were ordered, and results were reviewed by me: Bilat Lower DVT, CBC, BMP, BNP Additional Information was gathered from interviewing the following independent historians: Friend I reviewed and agreed with the following test results read by other providers: Bilat Lower DVT I discussed treatment and results with medical personnel and friend. Departure 1 Departure Time of Disposition: 13:25 Impression: Primary Impression: Hypertensive emergency Additional Impression: Encounter for wound care Disposition: ADMITTED INPATIENT Admit to: Med Surg Condition: Guarded Critical Care Note Critical Care Time?: Yes (45 min-critical care time only) Stability Stability form required: No Heart Score Heart Score: Heart Score Response (Comments) Value History N/A 0 EKG N/A 0 Age N/A 0 Risk Factors N/A 0 Troponin N/A 0 Total 0 I personally scribed for ISABELLE NAIK MD ([email or web address]) on 05/16/24 at 13:08. Electronically submitted by Sidney Hernández ([email or web address]). I personally scribed for ISABELLE NAIK MD ([email or web address]) on 05/16/24 at 14:32. Electronically submitted by Sidney Hernández ([email or web address]). ISABELLE NAIK MD May 16, 2024 13:08
[2024-05-16 13:33] LABS: Basophils # (auto) 0 10 ^3/uL (0-0.2); Basophils % (auto) 0.5 % (0.0-2.0); Eosinophils # (auto) 0 10 ^3/uL (0-0.8); Eosinophils % (auto) 0.5 % (0.0-7.0); Hematocrit 39.1 % (36.0-46.0); Hemoglobin 13.1 g/dL (12.2-16.2); Lymphocytes # (auto) 0.7 10 ^3/uL (0.4-5.4); Lymphocytes % (auto) 15.9 % (10.0-50.0); Mean Corpuscular Hemoglobin 30.1 pg (28.0-32.0); Mean Corpuscular Hgb Conc. 33.6 g/dL (32.0-36.0); Mean Corpuscular Volume 89.7 fL (80.0-100.0); Monocytes # (auto) 0.4 10 ^3/uL (0-1.3); Monocytes % (auto) 9.5 % (0.0-12.0); Neutrophils # (auto) 3.5 10 ^3/uL (1.6-8.6); Neutrophils % (auto) 73.6 % (37.0-80.0); Nucleated Red Blood Cells % 0.1 %; Platelet Count (auto) 74 10^3/uL (140-450); Red Blood Cells 4.36 10^6/uL (4.0-5.20); Red Cell Distribution Width 14.7 % (11.8-14.3); White Blood Cell 4.7 10^3/uL (4.4-10.8)
[2024-05-16 13:49] LABS: Chloride 106 mmol/L (98-107); Potassium 4.5 mmol/L (3.5-5.1); Sodium 141 mmol/L (136-145)
[2024-05-16 13:50] LABS: Anion Gap 7 (5-15); Calcium 10.3 mg/dL (8.7-10.4); Carbon Dioxide 28 mmol/L (20-31)
[2024-05-16 13:55] LABS: BUN/Creatinine Ratio 12.7 (10.0-20.0); Blood Urea Nitrogen 16 mg/dL (9-23); Glucose 96 mg/dL (74-106)
--- NOTE | 2024-05-16 14:19 | DVH ---
BILATERAL LOWER EXTREMITY VENOUS DOPPLER CLINICAL HISTORY: dvt Technique: Duplex Doppler evaluation of the deep venous systems of both lower extremities from the co mmon femoral veins to the popliteal veins including color Doppler and spectral/pulsed waveform analys is was performed. COMPARISON: US BILAT LOWER DVT on DOS: 05/01/24 FINDINGS: The right and left common femoral, superficial femoral, popliteal, posterior tibial veins appear pa tent with normal augmentation, phasicity, compressibility and color-flow. IMPRESSION: 1. There is no sonographic evidence for DVT in the lower extremities. HS:Y
[2024-05-16 14:36] VITALS: PULSE 120; RESP 20; O2SAT 95
[2024-05-16 16:47] VITALS: BP 149/105; PULSE 100; RESP 17; TEMP 98.3; O2SAT 98
== END 2024-05-16 21:53 | disposition left against medical advice (07) ==
LOC: ER 11:52
DX: I16.1 Hypertensive emergency (principal); M79.89 Other specified soft tissue disorders; E03.9 Hypothyroidism, unspecified; I48.91 Unspecified atrial fibrillation; K21.9 Gastro-esophageal reflux disease without esophagitis; D64.9 Anemia, unspecified; Z79.899 Other long term (current) drug therapy; Z86.73 Personal history of transient ischemic attack (TIA), and cerebral infarction without residual deficits; Z95.0 Presence of cardiac pacemaker; Z88.0 Allergy status to penicillin; Z88.1 Allergy status to other antibiotic agents; Z88.2 Allergy status to sulfonamides; Z88.8 Allergy status to other drugs, medicaments and biological substances
CPT/HCPCS: 36415; 80048; 83880; 85025; 93970

== ENCOUNTER → 2024-12-29 | Outpatient (CLI) | payer OTHER ==
[2024-12-29 12:32] LABS: Hematocrit 42.1 % (36.0-46.0); Hemoglobin 14.1 g/dL (12.2-16.2); Mean Corpuscular Hemoglobin 30.4 pg (28.0-32.0); Mean Corpuscular Volume 91.1 fL (80.0-100.0); Nucleated Red Blood Cells % 0.0 %
[2024-12-29 12:49] LABS: Triglycerides 142 mg/dL (< 150)
[2024-12-29 12:51] LABS: HDL Cholesterol 58 mg/dL (40-59)
[2024-12-29 12:52] LABS: Cholesterol 224 mg/dL (< 200); INR 1.08 (0.9-1.15); Partial Thromboplastin Time 31.3 SEC (24.5-34.5); Prothrombin Time 11.4 sec (9.3-11.8)
== END | disposition home or self-care (01) ==
LOC: LAB 12:01
PROVIDERS: ATTEND Internal Medicine
DX: N18.32 Chronic kidney disease, stage 3b (principal); I42.9 Cardiomyopathy, unspecified; E78.5 Hyperlipidemia, unspecified
CPT/HCPCS: 36415; 80061; 82306; 82607; 85025; 85610; 85730